=== PATIENT | female | born 1970 | race Caucasian/White ===

== ENCOUNTER 2017-09-05 15:02 | Emergency (ER) | payer OTHER, SELFPAY ==
[2017-09-05 15:02] VITALS: BP 130/81; PULSE 93; RESP 18; TEMP 36.8; O2SAT 98; BMI 30.9
--- NOTE | 2017-09-05 15:15 | RAD_ITS ---
STUDY: X-RAY - RIGHT ANKLE REASON FOR EXAM: Female, 47 years old. Pain following recent injury. TECHNIQUE: 3 view(s) of the ankle. COMPARISON: None. FINDINGS: Normal visualized distal tibia and fibula. Normal medial and lateral malleoli. Normal tibiotalar articulation and ankle mortise. Normal visualized talus and calcaneus. The visualized subtalar, talonavicular, calcaneocuboid and tarsal articulations are normal. The soft tissue structures are unremarkable. RAD/Ankle min 3 Views IMPRESSION: Normal x-ray examination of the ankle. Electronically Signed: Dany Huertas MD at 15:35 EST Tel [phone], Service support ,
--- NOTE | 2017-09-05 15:52 | RAD_ITS ---
STUDY: X-RAY - RIGHT TIBIA AND FIBULA REASON FOR EXAM: Female, 47 years old. Rolled ankle. TECHNIQUE: 3 view(s) of the tibia and fibula were obtained. COMPARISON: None. FINDINGS: Normal visualized tibia. Normal visualized fibula. The soft tissue structures are unremarkable. RAD/Tibia & Fibula 2 Views IMPRESSION: No acute osseous injury identified. Electronically Signed: Amanda Ibanez MD at 16:24 EST Tel , Service support ,
--- NOTE | 2017-09-05 15:52 | RAD_ITS ---
STUDY: X-RAY - RIGHT FOOT CLINICAL: Female, 47 years old. Rolled right ankle. TECHNIQUE: 3 view(s) of the foot. COMPARISON: None. FINDINGS: Normal talus, calcaneus, and tarsal bones. Normal visualized subtalar, talonavicular, calcaneocuboid, tarsal and tarsometatarsal articulations. Normal metatarsi. Normal metatarsophalangeal joint of the great toe. Normal interphalangeal joint of the great toe. Normal phalanges of the great toe. Normal second through fifth metatarsophalangeal joints. Normal interphalangeal joints and phalanges of the lesser toes. The soft tissue structures are unremarkable. RAD/Foot min 3 Views IMPRESSION: No acute osseous injury identified. Electronically Signed: Amanda Ibanez MD at 16:21 EST Tel , Service support ,
[2017-09-05] MEDS: HYDROcodone Bitartrate/Apap 5/325 Tablet PO (16:21)
--- NOTE | 2017-09-05 16:47 | ED.DCSUM_ITS ---
- ER Visit Summary Date of Service: 09/05/17 Chief Complaint: Right foot/ankle injury History of Present Illness: The patient is a 47 F who has pain in the right foot and ankle. She twisted it when she stood up from the recliner. She has pain on the lateral part of the ankle down into the foot. It radiates up her leg. No previous injuries or fractures. She did not take anything for this at home. Physical Examination: Vital signs reviewed. Right ankle and foot exam reveals tenderness over the fifth metatarsal as well as the ATFL area. She also is tender on the proximal fibula. There is mild swelling down the foot and ankle. Test Results: X-rays of the foot, ankle and tibia-fibula are all normal Emergency Department Course and Treatment: Patient was given Sloan for pain control Treatment Plan: X-rays are all negative. Patient will be given an Aircast and crutches. Naproxen for home. She will ice and elevate. We will follow-up with PCP Disposition: Discharge Impression: Right foot sprain This note was generated with [employer] dictation software. It may contain incorrect words, spelling, and punctuation that were not noted in review of the chart prior to signing ED Disposition - Plan for ED Patient: Chief Complaint: Lower Extremity Injury Referrals: Bladimir Malone MD [Primary Care Provider] -
--- NOTE | 2017-09-05 16:47 | ED.DEP ---
ED Disposition - Plan for ED Patient: Disposition: Home or Assisted Living Chief Complaint: Lower Extremity Injury Instructions: ED Sprain Ankle W X Ray Prescriptions: Naproxen [Naprosyn] 500 mg PO BID PRN #20 tab Referrals: Bladimir Malone MD [Primary Care Provider] -
[2017-09-05 17:05] VITALS: PULSE 82; RESP 17; O2SAT 97
== END 2017-09-05 17:09 | disposition home or self-care (01) ==
PROVIDERS: Emergency Provider Emergency Medicine; Family Provider Family Medicine; PCP Family Medicine
DX: S93.601A Unspecified sprain of right foot, initial encounter (principal); X58.XXXA Exposure to other specified factors, initial encounter; Y93.9 Activity, unspecified; Y92.9 Unspecified place or not applicable; I10 Essential (primary) hypertension; M54.9 Dorsalgia, unspecified; Z79.899 Other long term (current) drug therapy; Z72.0 Tobacco use
CPT/HCPCS: 73590; 73610; 73630; 99284

== ENCOUNTER 2018-04-11 13:01 | Emergency (ER) | payer OTHER, SELFPAY ==
[2018-04-11 13:02] VITALS: BP 144/94; PULSE 93; RESP 20; TEMP 36.7; O2SAT 98; BMI 27.3
[2018-04-11 14:14] LABS: Absolute Lymphocyte Count 1.93 X10^3/ul (0.83-4.51); Absolute Neutrophil Count 4.5 X10^3/uL (2.0-7.7); Basophil# 0.03 X10^3/uL; Basophil% 0.4 % (0-1); Eosinophil# 0.14 X10^3/uL; Eosinophils% 1.9 % (0-5); Lymphocyte # 1.93 X10^3/ul (4.0); Lymphocyte % 26.5 % (19-41); Mean Corp Hgb Conc 34.1 g/gl (32-36); Mean Corpuscular Hgb 32.1 pg (27.0-32.0); Mean Platelet Vol. 11.1 fl (6.2-12.0); Monocyte# 0.66 X10^3/uL; Monocyte% 9.1 % (0-10); Neutrophil # 4.52 X10^3/uL (2.7-7.7); Neutrophil % 62.1 % (47-70); POSITIVE COUNT NO; POSITIVE DIFFERENTIAL NO; POSITIVE MORPHOLOGY NO; Platelet Count 209 K/mm3 (150-450); RBC Distribution Width CV 12.6 % (11.6-14.6); RBC Distribution Width SD 43.2 fl (35.1-43.9); Red Blood Count 4.36 M/mm3 (4.2-5.4); White Blood Count 7.3 K/mm3 (4.4-11.0)
[2018-04-11 14:30] LABS: AST(SGOT) 12 U/L (15-37); Alanine Aminotransfer ALT/SGPT 20 U/L (13-56); Alkaline Phosphatase 96 U/L (45-117); Anion Gap 7 (5-15); BUN 14 mg/dL (7-18); BUN/Creat Ratio 17.2 RATIO (10-20); Bilirubin, Direct 0.14 mg/dL (0.00-0.30); Calcium,Total 9.3 mg/dL (8.5-10.1); Chloride 107 mmol/L (98-107); Creatinine, Serum 0.82 mg/dL (0.55-1.02); EST Glomerular Filtration Rate 80 mL/min (>60); Est Glom Filt Rate - Afr Amer 96 mL/min (>60); Estimated Creatinine Clearance 70.16 ml/min; Globulin 3.7 g/dL (2.2-4.2); Glucose 93 mg/dL (74-106); Lipase 120 U/L (73-393); Potassium 3.3 mmol/L (3.5-5.1); Protein, Total 7.7 g/dL (6.4-8.2); Sodium Level 140 mmol/L (136-145)
[2018-04-11] MEDS: 0.9% Normal Saline 1,000 ML 1000 ML IV (14:31)
[2018-04-11] MEDS: Ondansetron 4 MG/2 ML Vial IV ×2 (14:31→17:31)
[2018-04-11] MEDS: Morphine 4 MG/ML Syringe IV ×2 (14:31→17:30)
--- NOTE | 2018-04-11 14:45 | CT_ITS ---
STUDY: CT ABDOMEN AND PELVIS WITH CONTRAST REASON FOR EXAM: Female, 47 years old. UPPER ABD PAIN, N/V,D X 10 DAYS RADIATION DOSAGE (If Supplied By Facility): CTDIvol = ( 15.63 ) mGy, DLP = ( 886.09 ) mGycm TECHNIQUE: Transaxial images were obtained from the dome of the diaphragm to the symphysis pubis with oral contrast. 100 ml of Isovue 300 contrast was administered. Sagittal and coronal images were reconstructed. Individualized dose optimization techniques were used for this CT. COMPARISON: None. FINDINGS: The visualized lung bases are unremarkable. The visualized portions of the heart are within normal limits. Normal liver. Normal gallbladder and extrahepatic biliary system. Normal spleen. Small splenule is noted medial to the spleen. Normal pancreas. Normal bilateral adrenal glands. Normal right kidney. Normal left kidney. Normal visualized stomach. Normal small intestine. Normal colon. The appendix is visualized and appears normal. Mild atherosclerosis of the aorta noted. Normal inferior vena cava. Normal retroperitoneum. Normal urinary bladder. Normal abdominal wall. Degenerative disc height loss with marginal osteophytes, broad posterior disc bulge and vacuum disc phenomena noted at L5-S1. CT/Abdomen/Pelvis WITH Contrast IMPRESSION: Normal enhanced CT of the abdomen and pelvis. Electronically Signed: Stacy Mace MD at 17:15 EDT , Service support ,
--- NOTE | 2018-04-11 16:06 | ED.VISSUMM ---
- ER Visit Summary Date of Service: 04/11/18 Chief Complaint: Abdominal pain History of Present Illness: The patient is a 47 F with epigastric abdominal pain that occurs with eating for the past 10 days. She also describes significant diarrhea and nausea. Today she had vomiting of bile. She states her weight is down 6 pounds in the last 10 days. She denies fever or chills. She does complain of some body aches and headache. Physical Examination: Vital signs unremarkable. Patient is sitting upright in bed. She appears ill but she is not toxic appearing. Head and neck examination is unremarkable with moist mucous membranes. Heart is regular rate and rhythm. Sounds are clear. Abdomen is soft with focal tenderness in the epigastrium. There is no guarding or rebound. Hypoactive bowel sounds are noted. Test Results: CBC and chemistry studies significant for potassium 3.3. LFTs and lipase normal. CT abdomen pelvis is unremarkable. Emergency Department Course and Treatment: Patient was given morphine, Zofran, and IV fluids. Repeat evaluation patient is resting comfortably. She does state that she has had peptic ulcers in the past but had a lot of reflux with that. She has not had those symptoms currently. She may have gastritis versus duodenal ulcer causing her symptoms. I recommended follow-up with GI or surgery for further testing. In the meantime she will be started on Prilosec, Taylor, Zofran, and Reglan. She will be given potassium replacement for the next couple days. Treatment Plan: [] Disposition: Discharge Impression: 1. Epigastric pain 2. Hypokalemia This note was generated with [employer] dictation software. It may contain incorrect words, spelling, and punctuation that were not noted in review of the chart prior to signing ED Disposition - Plan for ED Patient: Chief Complaint: Abd Pain Referrals: Care Physician,No Primary [Primary Care Provider] -
--- NOTE | 2018-04-11 17:26 | ED.DEP ---
ED Disposition - Plan for ED Patient: Disposition: Home or Assisted Living Chief Complaint: Abd Pain Instructions: ED Epigastric Pain UKO, ED Potassium Deficiency Prescriptions: Hydrocodone Bitart/Apap 5-325 [[place] 5MG-325MG] 1 tablet PO Q6H PRN PRN 3 Days #10 tablet PRN Reason: Pain Ondansetron [Zofran Odt] 4 mg PO Q8H PRN PRN #10 tablet PRN Reason: Nausea Omeprazole [Prilosec] 20 mg PO DAILY #30 capsule Potassium Chloride [K-Dur] 20 meq PO BID #8 tablet Metoclopramide [Reglan] 10 mg PO 4X/DAY PRN #20 tablet PRN Reason: Nausea Referrals: Jeronimo Turpin MD [STAFF PHYSICIAN] - Kamaljit Bolivar MD [NON-STAFF] -
[2018-04-11] MEDS: 0.9% Normal Saline 1,000 ML 150 ML IV (17:28)
--- NOTE | 2018-04-11 17:29 | DCINST.ED_ITS ---
ED Disposition - Plan for ED Patient: Disposition: Home or Assisted Living Chief Complaint: Abd Pain Instructions: ED Epigastric Pain UKO, ED Potassium Deficiency Prescriptions: Hydrocodone Bitart/Apap 5-325 [[place] 5MG-325MG] 1 tablet PO Q6H PRN PRN 3 Days # 10 tablet PRN Reason: Pain Ondansetron [Zofran Odt] 4 mg PO Q8H PRN PRN #10 tablet PRN Reason: Nausea Omeprazole [Prilosec] 20 mg PO DAILY #30 capsule Potassium Chloride [K-Dur] 20 meq PO BID #8 tablet Metoclopramide [Reglan] 10 mg PO 4X/DAY PRN #20 tablet PRN Reason: Nausea Referrals: Jeronimo Turpin MD [STAFF PHYSICIAN] - Kamaljit Bolivar MD [NON-STAFF] -
== END 2018-04-11 17:55 | disposition home or self-care (01) ==
PROVIDERS: Emergency Provider Emergency Medicine
DX: R10.13 Epigastric pain (principal); E87.6 Hypokalemia; I10 Essential (primary) hypertension; Z87.11 Personal history of peptic ulcer disease; Z79.899 Other long term (current) drug therapy; Z72.0 Tobacco use
CPT/HCPCS: 74177; 80048; 80076; 83690; 85025; 96361; 96374; 96375; 96376; 99283; J7030; Q9967; A4216; J2405

== ENCOUNTER 2018-04-17 11:05 | Emergency (ER) | payer OTHER, SELFPAY ==
[2018-04-17 11:05] VITALS: BP 136/88; PULSE 95; RESP 16; TEMP 36.3; O2SAT 98; BMI 27.6
--- NOTE | 2018-04-17 11:11 | US_ITS ---
STUDY: ABDOMINAL ULTRASOUND - RIGHT UPPER QUADRANT REASON FOR VISIT: Female, 47 years old. Epigastric pain TECHNIQUE: Ultrasound evaluation of the right upper quadrant was performed with real-time and static heard-scale imaging. TECHNICAL QUALITY: Adequate. COMPARISON: None. FINDINGS: Liver: The liver measures 15.1 cm. There is normal echogenicity of the liver. The bile ducts are within normal limits. There is hepatic color flow. The direction of portal flow is hepatopetal. There is no demonstrated mass lesion. Gallbladder: Normal distended gallbladder. The gallbladder wall measures 2 mm. There is a negative sonographic Macdonald's sign. There is no pericholecystic fluid. There are no gallstones. Common Bile Duct (C.B.D.): The common bile duct measures 2 mm. Pancreas: Normal size of the head, body and tail of the pancreas. There is normal echogenicity of the pancreas. There is no demonstrated pancreatic mass or cyst. Right Kidney: Normal size of the right kidney. The right kidney measures 10 cm. Normal renal cortex. The right cortex measures 1.4 cm. There is no demonstrated renal mass or cyst. There is no right hydronephrosis. US/Gallbladder IMPRESSION: Normal right upper quadrant ultrasound examination. Electronically Signed: You Galindo DO at 12:01 EDT Tel , Service support ,
[2018-04-17 11:37] LABS: Bacteria 0 SEEN /hpf (None Seen); Mucous, Urine 0 SEEN /hpf (<or=2+); Red Blood Cells-Urine 0 SEEN /hpf (0-5); White Blood Cells 0 SEEN /hpf (0-5)
[2018-04-17 11:38] LABS: Color, Urine Yellow (Yellow); Glucose, Dipstick Normal (Normal); Ketone-Dipstick Negative (Negative); Leukocyte Esterase-Dipstick Negative /ul (Negative); Nitrite-Dipstick Negative (Negative); Occult Blood-Urine Negative /ul (Negative); Protein-Dipstick Negative (Negative); Specific Gravity, Urine 1.015 (1.002-1.030); Urine Bilirubin Dipstick Negative (Negative); Urine Clarity Sl. Cloudy (Clear); Urine Urobilinogen Normal (Normal)
[2018-04-17 11:50] LABS: Squamous Epithelial Cells - UA 0-5 SEEN /hpf (5-10)
[2018-04-17 12:16] LABS: Absolute Lymphocyte Count 2.84 X10^3/ul (0.83-4.51); Absolute Neutrophil Count 4.3 X10^3/uL (2.0-7.7); Basophil# 0.03 X10^3/uL; Basophil% 0.4 % (0-1); Eosinophil# 0.27 X10^3/uL; Eosinophils% 3.4 % (0-5); Hematocrit 43.9 % (37-47); Hemoglobin 15.1 g/dl (12.0-15.0); Lymphocyte # 2.84 X10^3/ul (4.0); Lymphocyte % 35.5 % (19-41); Mean Corp Hgb Conc 34.4 g/gl (32-36); Mean Corpuscular Hgb 32.5 pg (27.0-32.0); Mean Corpuscular Volume 94.6 fL (81-99); Mean Platelet Vol. 10.2 fl (6.2-12.0); Monocyte# 0.55 X10^3/uL; Monocyte% 6.9 % (0-10); Neutrophil # 4.29 X10^3/uL (2.7-7.7); Neutrophil % 53.7 % (47-70); Platelet Count 312 K/mm3 (150-450); RBC Distribution Width CV 13.2 % (11.6-14.6); RBC Distribution Width SD 45.4 fl (35.1-43.9); Red Blood Count 4.64 M/mm3 (4.2-5.4)
[2018-04-17 12:17] LABS: POSITIVE COUNT NO; POSITIVE DIFFERENTIAL NO; POSITIVE MORPHOLOGY NO
[2018-04-17 12:18] VITALS: BP 144/85; PULSE 88; O2SAT 100
[2018-04-17 12:32] LABS: Pregnancy, Serum, hCG Quali. NEGATIVE Negative (0-9 Nonpreg)
[2018-04-17 12:33] LABS: AST(SGOT) 13 U/L (15-37); Alanine Aminotransfer ALT/SGPT 25 U/L (13-56); Albumin, Serum 3.7 g/dL (3.2-5.0); Alkaline Phosphatase 115 U/L (45-117); Anion Gap 6 (5-15); BUN 5 mg/dL (7-18); BUN/Creat Ratio 6.7 RATIO (10-20); Bilirubin, Direct 0.06 mg/dL (0.00-0.30); Calcium,Total 9.2 mg/dL (8.5-10.1); Chloride 108 mmol/L (98-107); Creatinine, Serum 0.74 mg/dL (0.55-1.02); EST Glomerular Filtration Rate 89 mL/min (>60); Est Glom Filt Rate - Afr Amer 107 mL/min (>60); Estimated Creatinine Clearance 77.74 ml/min; Globulin 4.1 g/dL (2.2-4.2); Glucose 85 mg/dL (74-106); Lipase 147 U/L (73-393); Potassium 4.6 mmol/L (3.5-5.1); Protein, Total 7.8 g/dL (6.4-8.2); Sodium Level 143 mmol/L (136-145)
[2018-04-17] MEDS: Dicyclomine 20 MG/2 ML Vial IM (12:54)
[2018-04-17] MEDS: 0.9% Normal Saline 1,000 ML 999 ML IV (12:54)
--- NOTE | 2018-04-17 13:57 | ED.DCSUM_ITS ---
- ER Visit Summary Date of Service: 04/17/18 Chief Complaint: Abdominal pain History of Present Illness: The patient is a 47 F who was sent to the emergency room by Dr. Turpin. He was seen here in follow-up from an ER visit last week. The patient states that since weekend she has been having 20 diarrheal episodes are more a day as well as nausea vomiting. Last week in the emergency room she had blood work and a CT of the abdomen pelvis are essentially negative. She was sent to the ER for gallbladder evaluation. She initially denies any camping but then states that she was staying in a camper on some property with well water but the well water was deemed safe. Denies any rashes. No blood in the diarrhea. No fevers. Pain is constant but comes in waves. Physical Examination: Afebrile vital signs are stable Gen: Well-nourished well-developed Head: Normocephalic atraumatic Eyes: Perrl EOMI ENT: TMs clear no rhinorrhea moist mucous membranes Neck: Supple no lymphadenopathy no JVD nontender CVS: Regular rate rhythm no murmurs normal S1-S2 Respiratory: No distress clear to auscultation bilaterally chest nontender Abdomen: Soft diffusely tender to palpation more severe in the epigastrium nondistended normal bowel sounds no masses Back: Nontender Extremity: Nontender no edema Skin: Normal color no rash Neuro: alert orientated ?3 CN II-XII intact normal strength sensation reflexes gait cerebellar Psych: Normal affect normal mood Test Results: CBC CMP and lipase were normal. Gallbladder ultrasound showed negative Macdonald's no sludge or stone and a 2 mm gallbladder wall without pericholecystic fluid. Emergency Department Course and Treatment: Patient received Bentyl and fluids. She patient was asked to provide stool specimen. When she went she had formed stool. She states this is the first that she has had. Her surgeon to come to the emergency room speak with the patient. This point I am going to write Bentyl and have her follow-up with gastroenterology return if worsening Impression: 1. Abdominal pain This note was generated with [employer] dictation software. It may contain incorrect words, spelling, and punctuation that were not noted in review of the chart prior to signing ED Disposition - Plan for ED Patient: Disposition: Home or Assisted Living Chief Complaint: Abd Pain Instructions: ED Abdominal Pain Unkn Cause Prescriptions: Dicyclomine HCl [Bentyl] 10 mg PO 4X/DAY PRN #12 cap PRN Reason: abdominal pain Referrals: Kamaljit Bolivar MD [NON-STAFF] - (call to arrange gastroenterology appointment)
[2018-04-17 14:11] VITALS: BP 125/82; PULSE 75; RESP 14; O2SAT 100
== END 2018-04-17 14:22 | disposition home or self-care (01) ==
PROVIDERS: Emergency Provider Emergency Medicine
DX: R10.9 Unspecified abdominal pain (principal); R19.7 Diarrhea, unspecified; R11.2 Nausea with vomiting, unspecified; I10 Essential (primary) hypertension; Z79.899 Other long term (current) drug therapy; Z72.0 Tobacco use
CPT/HCPCS: 76705; 80048; 80076; 81001; 83630; 83690; 84703; 85025; 87177; 87209; 87506; 96360; 96372; 99284; J7030; A4216

== ENCOUNTER 2018-04-23 05:58 | Inpatient (IN) | payer OTHER, SELFPAY ==
[2018-04-23 05:59] VITALS: BP 136/100; PULSE 144; RESP 20; TEMP 36.7; BMI 27.6
--- NOTE | 2018-04-23 06:17 | ED.DCSUM_ITS ---
- ER Visit Summary Date of Service: 04/23/18 Chief Complaint: [] Abdominal pain History of Present Illness: The patient is a 47 F been experiencing abdominal pain for last 3-6 weeks. It was worse this morning. It waxes and wanes. Is moderate. She has had nausea with intermittent vomiting and intermittent diarrhea loose for the last 6 weeks. She has had 2 ER visits with negative workups including lab work CT abdomen pelvis and gallbladder ultrasound. She has had 3 attacks since the . She is having an appointment to see GI Dr. Bolivar the end of the month. She did see surgery Dr. Turpin after her first ER visit on the . Nothing was found at that time. Physical Examination: [] Vital signs reviewed General: Well-nourished well-developed Head: Normocephalic atraumatic Eyes: Pupils equal round and reactive to light extraocular movements intact ENT: TMs clear no hemotympanum no trauma Neck: Nontender full range of motion Cardiovascular: Regular rate rhythm no murmurs normal S1-S2 Respiratory: No distress clear to auscultation bilaterally chest nontender Abdomen: Soft diffuse tenderness normal bowel sounds no masses Back: Nontender no CVA tenderness Extremities: Nontender active range of motion ?4 extremities no trauma Skin: Normal color no trauma Neuro alert oriented cranial nerves II through XII intact normal strength sensation reflexes Test Results: [] Emergency Department Course and Treatment: [] Patient given IV fluids, morphine, Zofran. Lab work obtained. Lab work shows an acute pancreatitis with a lipase of 1139. CBC normal except a white count of 12.1. Chemistries normal except potassium 3.4. Glucose 130. Patient felt better after treatment. She will be admitted. Given copious IV fluids. She states she is not an alcohol drinker. Recent negative ultrasound of her gallbladder. It is unclear to me the cause of her pancreatitis. She also has a chronic diarrhea. She could have celiac disease with some of her symptoms being so chronic. She has an appointment with GI at the end of the month but she will need to be admitted to calm her pancreas down. Treatment Plan: [] Disposition: [] Impression: [] Pancreatitis Chronic diarrhea This note was generated with [employer] dictation software. It may contain incorrect words, spelling, and punctuation that were not noted in review of the chart p rior to signing ED Disposition - Plan for ED Patient: Chief Complaint: Abd Pain Referrals: Care Physician,No Primary [Primary Care Provider] -
[2018-04-23] MEDS: Ondansetron 4 MG/2 ML Vial IV ×2 (06:26→08:57)
[2018-04-23] MEDS: morphine 8 MG/ML Syringe IV (06:26)
[2018-04-23] MEDS: 0.9% Normal Saline 1,000 ML 1000 ML IV ×2 (06:26→06:53)
[2018-04-23 06:39] LABS: Absolute Lymphocyte Count 2.41 X10^3/ul (0.83-4.51); Absolute Neutrophil Count 8.7 X10^3/uL (2.0-7.7); Basophil# 0.03 X10^3/uL; Basophil% 0.2 % (0-1); Eosinophil# 0.21 X10^3/uL; Eosinophils% 1.7 % (0-5); Hematocrit 44.1 % (37-47); Hemoglobin 15.7 g/dl (12.0-15.0); Lymphocyte # 2.41 X10^3/ul (4.0); Lymphocyte % 19.9 % (19-41); Mean Corp Hgb Conc 35.6 g/gl (32-36); Mean Corpuscular Hgb 32.9 pg (27.0-32.0); Mean Corpuscular Volume 92.5 fL (81-99); Monocyte# 0.75 X10^3/uL; Monocyte% 6.2 % (0-10); Neutrophil # 8.69 X10^3/uL (2.7-7.7); Neutrophil % 71.8 % (47-70); Platelet Count 332 K/mm3 (150-450); RBC Distribution Width CV 13.1 % (11.6-14.6); Red Blood Count 4.77 M/mm3 (4.2-5.4); White Blood Count 12.1 K/mm3 (4.4-11.0)
[2018-04-23 06:41] LABS: POSITIVE COUNT NO; POSITIVE DIFFERENTIAL NO; POSITIVE MORPHOLOGY NO
[2018-04-23 06:45] LABS: BUN 7 mg/dL (7-18); Creatinine, Serum 0.81 mg/dL (0.55-1.02); Glucose 130 mg/dL (74-106)
[2018-04-23 06:46] LABS: AST(SGOT) 16 U/L (15-37); Alanine Aminotransfer ALT/SGPT 30 U/L (13-56); Albumin, Serum 3.6 g/dL (3.2-5.0); Alkaline Phosphatase 129 U/L (45-117); Anion Gap 10 (5-15); BUN/Creat Ratio 8.6 RATIO (10-20); Bilirubin, Direct 0.14 mg/dL (0.00-0.30); Calcium,Total 9.5 mg/dL (8.5-10.1); Chloride 105 mmol/L (98-107); EST Glomerular Filtration Rate 80 mL/min (>60); Est Glom Filt Rate - Afr Amer 97 mL/min (>60); Estimated Creatinine Clearance 71.03 ml/min; Globulin 4.1 g/dL (2.2-4.2); Lipase 1139 U/L (73-393); Potassium 3.4 mmol/L (3.5-5.1); Protein, Total 7.7 g/dL (6.4-8.2); Sodium Level 138 mmol/L (136-145)
--- NOTE | 2018-04-23 07:21 | PCM.HP.STD ---
Problem List (1) Peptic ulcer disease Status: Chronic (2) GERD (gastroesophageal reflux disease) Status: Chronic (3) Cervical disc disorder Status: Chronic (4) Abdominal pain Status: Chronic (5) Chronic diarrhea Status: Acute (6) Hypertension Status: Chronic History of Present Illness Date of Admission: 04/23/18 Chief Complaint: Abdominal pain, nausea, vomiting and diarrhea for about 6 weeks The patient is a 47 year old F with history of chronic cervical disc degeneration/herniation status post cervical spine surgery, possible PUD/GERD on PPI recently came to ER with abdominal pain, nausea and vomiting and diarrhea on and off for last 6 weeks. This is her third ER visit since 04/11/2015. Earlier patient was seen by Dr. Turpin in office and had [] Earlier CT abdomen and ultrasound the liver which reported as normal. Patient describes abdominal pain and cramps with waxing and waning in nature, sometimes very severe colicky nature but is still some pain remains after episode is over. Patient has nausea, vomiting and dry heaving, cleansed with a 15-20 times per day intermittently for last 6 weeks along with diarrhea which is loose, watery without blood. Denies GI bleed. Patient has appointment with Dr. Bolivar 05/22. In ED significant abnormal lab was lipase 1139. On previous occasions it was normal. Mild hypokalemia, K3.4. Mild leukocytosis 12,000. Past Medical History Past Medical History (Chronic Problems): Chronic Problems (Last Reviewed 04/17/18 @ 10:11 by Doris Ram) Peptic ulcer disease (Chronic) GERD (gastroesophageal reflux disease) (Chronic) Cervical disc disorder (Chronic) Abdominal pain (Chronic) Hypertension (Chronic) Medical History: Medical History (Last Reviewed 04/17/18 @ 10:11 by Doris Ram) Arthritis M19.90 Back pain M54.9 Neck pain M54.2 Raynauds disease I73.00 Shoulder pain M25.519 Hypertension I10 Allergies cyclobenzaprine HCl [From Flexeril] Adverse Reaction (Verified 04/23/18 06:04) UNABLE TO FUNCTION ON MED hydromorphone HCl [From Dilaudid] Adverse Reaction (Verified 04/23/18 06:04) Nausea Penicillins Adverse Reaction (Verified 04/23/18 06:04) YEAST INFECTION Home Medications: Ambulatory Orders Medication Instructions Recorded Hydrocodone Bitart/Apap 5-325 1 tab PO Q6H PRN PRN 3 Days #10 tab 04/11/18 [[place] 5MG-325MG] Metoclopramide [Reglan] 10 mg PO 4X/DAY PRN #20 tab 04/11/18 Omeprazole [Prilosec] 20 mg PO DAILY #30 cap 04/11/18 Ondansetron [Zofran Odt] 4 mg PO Q8H PRN PRN #10 tab 04/11/18 Potassium Chloride [K-Dur] 20 meq PO BID #8 tab 04/11/18 Dicyclomine HCl [Bentyl] 10 mg PO 4X/DAY PRN #12 cap 04/17/18 lisinopril 20 mg tablet 20 mg PO BID tab 04/17/18 Surgical History: Surgical History (Last Reviewed 04/17/18 @ 10:11 by Doris Ram) Hx of cervical spine surgery Z98.890 Smoking Status: Current every day smoker - *Family History Maternal Family History: Family History (Last Reviewed 04/17/18 @ 10:11 by Doris Ram) Other Cancer Diabetes Heart disease History Items: No pertinent history - Denies family history of irritable bowel syndrome Review of Systems Constitutional: Reports: Malaise, Weakness, Fatigue. Denies: Chills, Fever, Weight Change HEENT: Denies: Head Aches, Sinus Congestion, Sinus Drainage Cardiovascular: Denies: Chest Pain, Palpitations Respiratory: Denies: Cough, Shortness of breath at rest, Sputum production Gastrointestinal: Reports: Abdominal Pain, Diarrhea, Nausea, Vomiting. Denies: Hematemesis, Hematochezia, Melena Genitourinary: Denies: Dysuria Musculoskeletal: Reports: Neck Pain. Denies: Joint Pain, Joint Tenderness Skin: Denies: Rash, Wounds Neurological: Denies: Numbness, Tingling, Focal weakness Psychiatric: Reports: Anxiety. Denies: Depression, Homicidal Ideations, Suicidal Ideations Hematologic/ Lymphatic: Denies: Easy Bruising, Easy Bleeding VTE Information - Inpt Only VTE Present on Admission: No VTE Mechan Device Prophylaxis: None VTE Pharm Prophylaxis ordered?: Yes Patient Problems: Active and Suspected Problems (Last Reviewed 04/17/18 @ 10:11 by Doris Ram) Chronic diarrhea (Acute) - Physical Exam General: Alert, Oriented x3, Cooperative HEENT: Atraumatic, PERRLA, EOMI, Normocephalic Neck: Supple, No JVD, Negative Carotid Bruits Lungs: Clear to auscultation, Normal air movement Cardiovascular: Regular rate, Regular Rhythm, Normal S1, Normal S2, No murmurs Abdomen: Bowel Sounds Present, Soft, Non Tender, Non-Distended Extremities: No edema, Capillary Refill Less than 3 Seconds Skin: No rashes, No breakdown Musculoskeletal: No Tenderness to Palpation of Joints or Extremities, Arthritic Changes Neurological: Cranial nerves II-XII grossly intact Psych/Mental Status: Normal Affect, Appropriate Vital Signs Temp Pulse Resp BP 98.1 F 144 H 20 H 136/100 H 04/23/18 05:59 04/23/18 05:59 04/23/18 05:59 04/23/18 05:59 Weight: 156 lb Body Mass Index (BMI) 27.6 Laboratory Tests Past 24 Hrs 04/23/18 04/23/18 06:20 06:20 WBC 12.1 H RBC 4.77 Hgb 15.7 H Hct 44.1 MCV 92.5 MCH 32.9 H MCHC 35.6 RDW 13.1 RDW Differential 43.0 Plt Count 332 MPV 10.0 Immature Gran % (Auto) 0.200 Neut % (Auto) 71.8 H Lymph % (Auto) 19.9 [place] % (Auto) 6.2 Eos % (Auto) 1.7 Baso % (Auto) 0.2 Absolute Neuts (auto) 8.7 H Absolute Lymphs (auto) 2.41 Total Counted Not Reportable Sodium 138 Potassium 3.4 L Chloride 105 Carbon Dioxide 23.0 Anion Gap 10 BUN 7 Creatinine 0.81 Estim Creat Clear Calc 71.03 Est GFR (MDRD) Af Amer 97 Est GFR (MDRD) Non-Af 80 BUN/Creatinine Ratio 8.6 L Glucose 130 H Calcium 9.5 Total Bilirubin 0.50 Direct Bilirubin 0.14 AST 16 ALT 30 Alkaline Phosphatase 129 H Total Protein 7.7 Albumin 3.6 Globulin 4.1 Lipase 1139 H Assessment/Plan All Active Problems (Last Reviewed 04/17/18 @ 10:11 by Doris Ram) Chronic diarrhea (Acute) Infected dental caries (Acute) The patient is a 47 year old F with history of chronic cervical disc degeneration/herniation status post cervical spine surgery, possible PUD/GERD on PPI recently came to ER with abdominal pain, nausea and vomiting and diarrhea on and off for last 6 weeks. This is her third ER visit since 04/11/2015. Earlier patient was seen by Dr. Turpin in office and had [] Earlier CT abdomen and ultrasound the liver which reported as normal. Patient describes abdominal pain and cramps with waxing and waning in nature, sometimes very severe colicky nature but is still some pain remains after episode is over. Patient has nausea, vomiting and dry heaving, cleansed with a 15-20 times per day intermittently for last 6 weeks along with diarrhea which is loose, watery without blood. Denies GI bleed. Patient has appointment with Dr. Bolivar 05/22. In ED significant abnormal lab was lipase 1139. On previous occasions it was normal. Mild hypokalemia, K3.4. Mild leukocytosis 12,000. 1. Possible acute pancreatitis; exact etiology unclear: Patient has lipase 1139 which is 3 times upper limit normal but lipase elevation >3 ULN has been found from bowel sources, hepatobiliary pathology and gastric sources although evidence do not suggest that. Pancreas was reported normal. CBD measures 2 mm. Normal external gallbladder with GB wall 2 mm in recent right upper quadrant sonogram and 04/17. But at that time, lipase was normal at 147. Patient has accepted drinking alcohol on weekends but denies heavy drinking. Keep the patient n.p.o. patient had 2 L of normal saline bolus in ED. Continue IV fluid normal saline at 150 mL/h. General surgery Dr. Turpin consult for further opinion. 2. Acute abdominal pain, with nausea, vomiting and diarrhea; etiology unclear possible irritable bowel syndrome: Enteric bacteriology panel and stool lactoferrin are negative. I think given patient pain is subsided will need upper and lower GI endoscopy. Stool for C. difficile ordered. 3. Other chronic comorbidities include cervical disc degeneration/discitis status post surgery, GERD/possible PUD, hypertension, home medication reconciliation done. Code Visit Inpatient E&M: 88129 Init Hosp L3
[2018-04-23 07:32] VITALS: BP 158/98; PULSE 100; RESP 18; O2SAT 95
--- NOTE | 2018-04-23 07:34 | NURSING ---
Dr. Hernández notified of elevated BP
[2018-04-23 08:07] VITALS: BMI 26.6; BMI 26.7
[2018-04-23 08:09] VITALS: BP 123/79; PULSE 103; RESP 20; TEMP 36.6; O2SAT 99
--- NOTE | 2018-04-23 08:42 | US_ITS ---
STUDY: ABDOMINAL ULTRASOUND - RIGHT UPPER QUADRANT REASON FOR VISIT: Female, 47 years old. Right upper quadrant pain and elevated lipase levels. TECHNIQUE: Ultrasound evaluation of the right upper quadrant was performed with real-time and static heard-scale imaging. TECHNICAL QUALITY: Adequate. COMPARISON: Comparison is made with prior ultrasound of the abdomen dated April 17, 2018. FINDINGS: Liver: The liver measures 15.0 cm. There is normal echogenicity of the liver. The bile ducts are within normal limits. There is hepatic color flow. The direction of portal flow is hepatopetal. There is no demonstrated mass lesion. Gallbladder: Normal distended gallbladder. The gallbladder wall measures 1.8 mm. There is a negative sonographic Macdonald's sign. There is no pericholecystic fluid. There are no gallstones. Common Bile Duct (C.B.D.): The common bile duct measures 3.7 mm. Pancreas: Normal size of the head, body and tail of the pancreas. There is normal echogenicity of the pancreas. There is no demonstrated pancreatic mass or cyst. Right Kidney: Normal size of the right kidney. The right kidney measures 10.1 cm x 4.6 cm x 4.3 cm. Normal renal cortex. The right cortex measures 1.4 cm. There is no demonstrated renal mass or cyst. There is no right hydronephrosis. US/Abdomen Limited IMPRESSION: Normal right upper quadrant ultrasound examination. Electronically Signed: Dany Huertas MD at 13:13 EDT Tel [phone], Service support ,
[2018-04-23] MEDS: Morphine 2 MG/ML Syringe IV ×2 (08:44→12:33)
[2018-04-23] MEDS: 0.9% NaCl Peripheral Flush Adult/Peds IV ×3 (08:57→16:28)
--- NOTE | 2018-04-23 10:05 | CASEMGMT ---
RN ANALISA Face to Face with patient for initial transition planning/care coordination assessment. RN CM introduced self and role at [facility]. Patient lying in bed, alert and oriented, parents at bedside. Patient willing to participate in assessment and is able to answer all questions appropriately. Care providers, pharmacy, and demographics verified. See link attached. Patient wishes to discharge home, denies need for home health at this time. Pt states he has no further needs or concerns at this time. CM to follow for discharge planning needs that may arise. Disposition Plan: Patient to discharge home with family support and follow-up plans in place. Cassia HOROWITZ, RN, CM
[2018-04-23] MEDS: Enoxaparin 40 MG/0.4 ML Syringe SC (11:34)
[2018-04-23] MEDS: Lisinopril 20 MG Tablet PO ×2 (11:34→21:37)
[2018-04-23] MEDS: 0.9% Normal Saline 1,000 ML 150 ML IV (15:00)
[2018-04-23 16:14] VITALS: BP 123/80; PULSE 93; RESP 18; TEMP 37.6; O2SAT 98
[2018-04-23] MEDS: Morphine 4 MG/ML Syringe IV ×2 (16:28→20:10)
--- NOTE | 2018-04-23 18:40 | NURSING ---
PT REQUESTING SOMETHING TO EAT. DR ANG TEXT REGARDING SAME - ORDERED PT TO REMAIN ONLY ON ICE CHIPS @ THIS TIME.
[2018-04-23] MEDS: Dicyclomine 10 MG Capsule PO (20:09)
[2018-04-23 21:00] VITALS: BP 116/78; PULSE 72; RESP 16; TEMP 37.3; O2SAT 98
[2018-04-24] MEDS: 0.9% Normal Saline 1,000 ML 150 ML IV ×3 (00:34→17:54)
[2018-04-24] MEDS: Morphine 4 MG/ML Syringe IV ×5 (00:41→21:56)
[2018-04-24 03:00] VITALS: BP 133/89; PULSE 66; RESP 16; TEMP 36.6; O2SAT 98
[2018-04-24] MEDS: Dicyclomine 10 MG Capsule PO ×2 (05:30→16:42)
[2018-04-24 06:18] LABS: Absolute Lymphocyte Count 2.16 X10^3/ul (0.83-4.51); Absolute Neutrophil Count 2.8 X10^3/uL (2.0-7.7); Basophil# 0.02 X10^3/uL; Basophil% 0.3 % (0-1); Eosinophil# 0.14 X10^3/uL; Eosinophils% 2.4 % (0-5); Hematocrit 35.8 % (37-47); Hemoglobin 12.2 g/dl (12.0-15.0); Lymphocyte # 2.16 X10^3/ul (4.0); Lymphocyte % 37.3 % (19-41); Mean Corp Hgb Conc 34.1 g/gl (32-36); Mean Corpuscular Hgb 32.9 pg (27.0-32.0); Mean Corpuscular Volume 96.5 fL (81-99); Mean Platelet Vol. 10.4 fl (6.2-12.0); Monocyte# 0.63 X10^3/uL; Monocyte% 10.9 % (0-10); Neutrophil # 2.83 X10^3/uL (2.7-7.7); Neutrophil % 48.9 % (47-70); Platelet Count 216 K/mm3 (150-450); RBC Distribution Width CV 13.2 % (11.6-14.6); RBC Distribution Width SD 43.9 fl (35.1-43.9); Red Blood Count 3.71 M/mm3 (4.2-5.4); White Blood Count 5.8 K/mm3 (4.4-11.0)
[2018-04-24 06:21] LABS: POSITIVE COUNT NO; POSITIVE DIFFERENTIAL NO; POSITIVE MORPHOLOGY NO
[2018-04-24 06:36] LABS: Anion Gap 7 (5-15); BUN 6 mg/dL (7-18); BUN/Creat Ratio 10.3 RATIO (10-20); Calcium,Total 8.3 mg/dL (8.5-10.1); Chloride 111 mmol/L (98-107); Creatinine, Serum 0.58 mg/dL (0.55-1.02); EST Glomerular Filtration Rate 117 mL/min (>60); Est Glom Filt Rate - Afr Amer 142 mL/min (>60); Estimated Creatinine Clearance 99.19 ml/min; Glucose 77 mg/dL (74-106); Lipase 985 U/L (73-393); Potassium 3.5 mmol/L (3.5-5.1); Sodium Level 143 mmol/L (136-145)
[2018-04-24 08:58] VITALS: BP 144/83; PULSE 71; RESP 18; TEMP 36.7; O2SAT 100
[2018-04-24] MEDS: Lisinopril 20 MG Tablet PO ×2 (09:05→21:56)
[2018-04-24] MEDS: Enoxaparin 40 MG/0.4 ML Syringe SC (09:05)
[2018-04-24] MEDS: Ondansetron 4 MG/2 ML Vial IV (09:13)
--- NOTE | 2018-04-24 11:19 | PCA ---
doctor in with pt
--- NOTE | 2018-04-24 11:27 | PCM.PN.HOSP ---
Patient Problems: Active and Suspected Problems (Last Reviewed 04/17/18 @ 10:11 by Doris Ram) Chronic diarrhea (Acute) Subjective: Patient continues to have abdominal pain and required morphine. She is eager to eat Jell-O. She had 3 bowel movements yesterday and 2 bowel movements today. No GI bleed. She complained of abdominal pain today mainly epigastric in nature. No fever/chill. No tachycardia. No hypoxia. Vitals/I&O's: Vital Signs Temp Pulse Resp BP Pulse Ox 98.1 F 71 18 144/83 H 100 04/24/18 08:58 04/24/18 08:58 04/24/18 08:58 04/24/18 08:58 04/24/18 08:58 Oxygen Delivery Method Room Air Weight: 150 lb 9.211 oz Body Mass Index (BMI) 26.6 Intake and Output for Last 24 Hours 04/22/18 04/23/18 04/24/18 23:59 23:59 23:59 Intake Total 1018 / 1018 1506 / 1506 Output Total 441 / 441 Balance 577 / 577 1506 / 1506 General: Alert, Oriented x3, Cooperative HEENT: Atraumatic, PERRLA, EOMI, Normocephalic Neck: Supple, No JVD, Negative Carotid Bruits Lungs: Clear to auscultation, Normal air movement Cardiovascular: Regular rate, Regular Rhythm, Normal S1, Normal S2, No murmurs Abdomen: Bowel Sounds Present, Soft, Hyperactive Bowel Sounds, Tender - Epigastric region Extremities: No edema, Capillary Refill Less than 3 Seconds Skin: No rashes, No breakdown Musculoskeletal: No Tenderness to Palpation of Joints or Extremities Neurological: Cranial nerves II-XII grossly intact Psych/Mental Status: Normal Affect, Appropriate Microbiology Past 72 Hours 04/23/18 12:35 Stool C. difficile DNA Amplification - Final Laboratory Results 04/24/18 05:30: WBC 5.8, RBC 3.71 L, Hgb 12.2, Hct 35.8 L, MCV 96.5, MCH 32.9 H, MCHC 34.1, RDW 13.2, RDW Differential 43.9, Plt Count 216, MPV 10.4, Immature Gran % (Auto) 0.200, Neut % (Auto) 48.9, Lymph % (Auto) 37.3, [place] % (Auto) 10.9 H, Eos % (Auto) 2.4, Baso % (Auto) 0.3, Absolute Neuts (auto) 2.8, Absolute Lymphs (auto) 2.16, Total Counted Not Reportable 04/24/18 05:30: Sodium 143, Potassium 3.5, Chloride 111 H, Carbon Dioxide 25.0, Anion Gap 7, BUN 6 L, Creatinine 0.58, Estim Creat Clear Calc 99.19, Est GFR (MDRD) Af Amer 142, Est GFR (MDRD) Non-Af 117, BUN/Creatinine Ratio 10.3, Glucose 77, Calcium 8.3 L, Lipase 985 H Current Medications Acetaminophen (Tylenol) 650 mg PO Q6H PRN PRN PRN Reason: Mild Pain (scale 0-3)/T>100.7 Dicyclomine HCl (Bentyl) 10 mg PO 4X/DAY PRN PRN Reason: abdominal pain Last Admin: 04/24/18 05:30 Dose: 10 mg Enoxaparin Sodium (Lovenox) 40 mg SC DAILY@1000 TIMUR Last Admin: 04/24/18 09:05 Dose: 40 mg Sodium Chloride () 1,000 mls @ 150 mls/hr IV .Q6H40M [facility] Last Admin: 04/24/18 05:30 Dose: 150 mls/hr Lisinopril (Zestril) 20 mg PO BID [facility] Last Admin: 04/24/18 09:05 Dose: 20 mg Morphine Sulfate () 4 mg IV Q3H PRN PRN PRN Reason: SEVERE PAIN (6-10/10) Last Admin: 04/24/18 09:13 Dose: 4 mg Morphine Sulfate () 2 mg IV Q3H PRN PRN PRN Reason: MOD-SEVERE PAIN (4-10/10) Ondansetron HCl (Zofran) 4 mg IV Q6H PRN PRN PRN Reason: NAUSEA Last Admin: 04/24/18 09:13 Dose: 4 mg Promethazine HCl (Phenergan) 12.5 mg IV Q6H PRN PRN PRN Reason: NAUSEA/VOMITING Sodium Chloride () 5 - 30 ml IV UD PRN PRN Reason: SALINE FLUSH Last Admin: 04/23/18 16:28 Dose: 10 ml Medical Necessity - Tobacco Use Smoking Status: Current every day smoker Assessment/Plan All Active Problems (Last Reviewed 04/17/18 @ 10:11 by Doris Ram) Chronic diarrhea (Acute) Infected dental caries (Acute) The patient is a 47 year old F with history of chronic cervical disc degeneration/herniation status post cervical spine surgery, possible PUD/GERD on PPI recently came to ER with abdominal pain, nausea and vomiting and diarrhea on and off for last 6 weeks. This is her third ER visit since 04/11/2015. Earlier patient was seen by Dr. Turpin in office and had [] Earlier CT abdomen and ultrasound the liver which reported as normal. Patient describes abdominal pain and cramps with waxing and waning in nature, sometimes very severe colicky nature but is still some pain remains after episode is over. Patient has nausea, vomiting and dry heaving, cleansed with a 15-20 times per day intermittently for last 6 weeks along with diarrhea which is loose, watery without blood. Denies GI bleed. Patient has appointment with Dr. Bolivar 05/22. In ED significant abnormal lab was lipase 1139. On previous occasions it was normal. Mild hypokalemia, K3.4. Mild leukocytosis 12,000. 1. Possible acute pancreatitis; exact etiology unclear: Patient has lipase 1139 which is 3 times upper limit. Repeat right upper quadrant reported as normal, even pancreas reported normal. In previous CT scan pancreas was reported normal. CBD measures 2 mm. Normal external gallbladder with GB wall 2 mm in recent right upper quadrant sonogram and 04/17. But at that time, lipase was normal at 147. Patient has accepted drinking alcohol on weekends but denies heavy drinking. Keep the patient n.p.o. patient had 2 L of normal saline bolus in ED. Continue IV fluid normal saline at 150 mL/h. Discussed with Dr. Turpin yesterday and he advised to consult Dr. Hu as he is going out of town. Still having diarrhea. Patient eager to have endoscopy but advised in acute pancreatitis endoscopic intervention generally is not recommended unless it is from hepatobiliary/CBD obstruction. 2. Acute abdominal pain, with nausea, vomiting and diarrhea; etiology unclear possible irritable bowel syndrome: Enteric bacteriology panel and stool lactoferrin are negative. I think given patient pain is subsided will need upper and lower GI endoscopy. Stool for C. difficile negative. 3. Other chronic comorbidities include cervical disc degeneration/discitis status post surgery, GERD/possible PUD, hypertension, home medication reconciliation done. Different etiologies of abdominal pain, pancreatitis, plan of management was discussed with the patient and her father. Patient seems a little agitated about being n.p.o., abdominal pain and about doctor has seen yet but I saw her yesterday. Code Visit Inpatient E&M: 50498 Subs Hosp L3
--- NOTE | 2018-04-24 13:03 | MRI_ITS ---
STUDY: MR CHOLANGIOPANCREATOGRAPHY (MRCP) REASON FOR EXAM: Female, 47 years old. Abd pain, n/v/d, elevated lipase TECHNIQUE: Standard MRCP technique was utilized. COMPARISON: Abdomen/Pelvis ct of Apr 11 2018 4:42pm FINDINGS: Gall Bladder: Normal with no distention or demonstrated fixed intraluminal filling defect. Cystic duct: Normal with no demonstrated fixed filling defect. Intrahepatic ducts: Normal visualized intrahepatic ducts with no demonstrated fixed filling defect, dilation or stricture. Common hepatic duct: Normal with no demonstrated fixed filling defect, dilation or stricture. Common bile duct: Normal with no demonstrated fixed filling defect, dilation or stricture. Pancreatic duct: Normal with no demonstrated fixed filling defect, dilation or stricture. MRI/MRCP Abdomen without Contrast IMPRESSION: Normal MR Cholangiopancreatography (MRCP). Electronically Signed: Johan Ching MD at 19:34 EDT , Service support ,
--- NOTE | 2018-04-24 13:05 | PCM.CONS.GEN ---
Problem List (1) Pancreatitis, acute Status: Acute Reason for Consult Date of Consultation: 04/24/18 Reason for Consultation: Acute pancreatitis History of Present Illness: The patient is a 47 year old F who presents with a 3 week history of waxing and waning abdominal pain, nausea, vomiting and diarrhea. Patient notes her symptoms started on . She was at a family picnic on Sunday where they had food and 3 beers on a hot day. Patient noted the following day, Sunday, she was noted her symptoms started. She thought possibly having the flu or heat exhaustion. Patient noted her abdominal pain was more upper abdomen on the right and left upper quadrants. Patient noted she waited for 1 1/2 weeks before reaching out to her PCP who recommended coming to the ED. She had a CT scan of the abdomen/pelvis on 04/11 which was unremarkable as well as her lab work. She was given 10 narcotic pain medications and Prilosec. Patient noted this did not help. Patient noted she was recommended to follow-up with Dr. Turpin. She was evaluated in the office by him on 04/17. He recommended a RUQ u/s. She was sent to the ED where the RUQ u/s was completed and was unremarkable. She noted labs were obtained and were unremarkable except for her potassium being low. She was given oral potassium. Patient was also scheduled to see gastroenterology on 05/22 for upper and lower scopes. Patient's abdominal pain continued and she presented to the ED. Patient noted on Sunday she had Ramen noodles for lunch and she noted abdominal pain right away. Patient noted she was able to eat veggie broth for dinner and tolerated that well. Patient noted in the middle of the night the abdominal pain woke her from sleep. Patient noted oily yellowish stools. Patient notes she has had a 10 pound weight loss since the start of her symptoms. She has not had much of an appetite. Patient smokes 1 ppd since a teenager. She notes at least 6 beers per week or more. Repeat RUQ u/s yesterday was unremarkable. Her lipase level was elevated at 1139 down to 985. WBC 12.1-->5.8, Hgb 12.2, Hct 35.8, plt 216. Liver enzymes unremarkable. C diff was negative. Past Medical History Past Medical History (Chronic Problems): Chronic Problems (Last Reviewed 04/24/18 @ 15:43 by Samantha Wolfe PA-C) Peptic ulcer disease (Chronic) GERD (gastroesophageal reflux disease) (Chronic) Cervical disc disorder (Chronic) Abdominal pain (Chronic) Hypertension (Chronic) Medical History: Medical History (Last Reviewed 04/24/18 @ 15:43 by Samantha Wolfe PA-C) Arthritis M19.90 Back pain M54.9 Neck pain M54.2 Raynauds disease I73.00 Shoulder pain M25.519 Hypertension I10 Allergies cyclobenzaprine HCl [From Flexeril] Adverse Reaction (Verified 04/23/18 06:04) UNABLE TO FUNCTION ON MED hydromorphone HCl [From Dilaudid] Adverse Reaction (Verified 04/23/18 06:04) Nausea Penicillins Adverse Reaction (Verified 04/23/18 06:04) YEAST INFECTION Home Medications: Ambulatory Orders Medication Instructions Recorded Hydrocodone Bitart/Apap 5-325 1 tab PO Q6H PRN PRN 3 Days #10 tab 04/11/18 [[place] 5MG-325MG] Metoclopramide [Reglan] 10 mg PO 4X/DAY PRN #20 tab 04/11/18 Omeprazole [Prilosec] 20 mg PO DAILY #30 cap 04/11/18 Ondansetron [Zofran Odt] 4 mg PO Q8H PRN PRN #10 tab 04/11/18 Potassium Chloride [K-Dur] 20 meq PO BID #8 tab 04/11/18 Dicyclomine HCl [Bentyl] 10 mg PO 4X/DAY PRN #12 cap 04/17/18 lisinopril 20 mg tablet 20 mg PO BID tab 04/17/18 Surgical History: Surgical History (Last Reviewed 04/24/18 @ 15:44 by Samantha Wolfe PA-C) Hx of cervical spine surgery Z98.890 Surgical History: - - Multiple cervical and lumbar surgeries Psychiatric History: Depression RETRIEVAL SPECIALIST History: No pertinent RETRIEVAL SPECIALIST history Lives: Spouse/ Significant Other Smoking Status: Current every day smoker Tobacco Use: Cigarettes Alcohol: Heavy - 6 beers or more per week Drugs: None - *Family History Maternal Family History: Family History (Last Reviewed 04/24/18 @ 15:45 by Samantha Wolfe PA-C) Other Cancer Diabetes Heart disease History Items: No pertinent history - Denies family history of irritable bowel syndrome Review of Systems Constitutional: Reports: Anorexia, Weight Change, Fatigue HEENT: Denies: Head Aches, Sinus Congestion, Sinus Drainage Cardiovascular: Denies: Chest Pain, Palpitations Respiratory: Denies: Cough, Shortness of breath at rest, Sputum production Gastrointestinal: Reports: Abdominal Pain, Diarrhea, Nausea, Vomiting Genitourinary: Denies: Dysuria Musculoskeletal: Reports: Back Pain, Neck Pain. Denies: Joint Pain, Joint Tenderness Skin: Denies: Rash, Wounds Neurological: Denies: Numbness, Tingling, Focal weakness Psychiatric: Reports: Depression Hematologic/ Lymphatic: Denies: Easy Bruising, Easy Bleeding Patient Problems: Active and Suspected Problems (Last Reviewed 04/24/18 @ 15:43 by Samantha Wolfe PA-C) Chronic diarrhea (Acute) Pancreatitis, acute (Acute) - Physical Exam General: Alert, Oriented x3, Cooperative HEENT: Atraumatic, PERRLA, EOMI, Normocephalic Neck: Supple, No JVD, Negative Carotid Bruits Lungs: Clear to auscultation, Normal air movement Cardiovascular: Regular rate, No murmurs Abdomen: Bowel Sounds Present, Soft, Tender - Upper abdomen; RUQ and LUQ Extremities: No edema, Capillary Refill Less than 3 Seconds Skin: No rashes, No breakdown Musculoskeletal: No Tenderness to Palpation of Joints or Extremities Neurological: Neuro grossly intact Psych/Mental Status: - - Tearful Vital Signs Temp Pulse Resp BP Pulse Ox 98.1 F 71 18 144/83 H 100 04/24/18 08:58 04/24/18 08:58 04/24/18 08:58 04/24/18 08:58 04/24/18 08:58 Oxygen Delivery Method Room Air Weight: 150 lb 9.211 oz Body Mass Index (BMI) 26.6 Intake and Output for Last 24 Hours 04/22/18 04/23/18 04/24/18 23:59 23:59 23:59 Intake Total 1018 / 1018 2299 / 2299 Output Total 441 / 441 Balance 577 / 577 2299 / 2299 Microbiology Past 72 Hours 04/23/18 12:35 C. difficile DNA Amplification - Final Stool Laboratory Tests Past 24 Hrs 04/24/18 04/24/18 05:30 05:30 WBC 5.8 RBC 3.71 L Hgb 12.2 Hct 35.8 L MCV 96.5 MCH 32.9 H MCHC 34.1 RDW 13.2 RDW Differential 43.9 Plt Count 216 MPV 10.4 Immature Gran % (Auto) 0.200 Neut % (Auto) 48.9 Lymph % (Auto) 37.3 [place] % (Auto) 10.9 H Eos % (Auto) 2.4 Baso % (Auto) 0.3 Absolute Neuts (auto) 2.8 Absolute Lymphs (auto) 2.16 Total Counted Not Reportable Sodium 143 Potassium 3.5 Chloride 111 H Carbon Dioxide 25.0 Anion Gap 7 BUN 6 L Creatinine 0.58 Estim Creat Clear Calc 99.19 Est GFR (MDRD) Af Amer 142 Est GFR (MDRD) Non-Af 117 BUN/Creatinine Ratio 10.3 Glucose 77 Calcium 8.3 L Lipase 985 H Assessment/Plan All Active Problems (Last Reviewed 04/24/18 @ 15:43 by Samantha Wolfe PA-C) Chronic diarrhea (Acute) Pancreatitis, acute (Acute) Infected dental caries (Acute) I have been consulted in conjunction with Dr. Arroyo. Impression: Acute pancreatitis. Upper abdominal pain Plan: I have discussed this patient with Dr. Arroyo. Recommend MRCP. Dr. Arroyo will plan to perform an upper scope with possible biopsies tomorrow morning. Procedure details, risks and benefits have been reviewed with the patient. Patient has had the opportunity to ask and have questions answered. Patient verbally understands and agrees to the plan. Thank you for allowing me to participate in this patient's care. My recommendations will be available via electronic medical records. Code Visit Office Visits / Consults: [id number] IP Consult L3
[2018-04-24 14:30] VITALS: BP 113/79; PULSE 77; RESP 18; TEMP 36.8; O2SAT 97
[2018-04-24] MEDS: 0.9% NaCl Peripheral Flush Adult/Peds IV (16:42)
[2018-04-24] MEDS: ALPRAZolam 0.5 MG Tablet PO (17:53)
[2018-04-24 22:22] VITALS: BP 174/98; PULSE 71; RESP 14; TEMP 37.2; O2SAT 100
[2018-04-25] VITALS (11 sets, daily range): BP systolic 84–140; BP diastolic 36–98; PULSE 71–98; RESP 14–18; TEMP 36.6–37.5; O2SAT 94–100; BMI 26.6
--- NOTE | 2018-04-25 | IMM_PTH ---
PATIENT: PETER OSMAN LOC: MS3 U#:[id number] AGE/SX: 47/F ROOM: SC311 RE04/23/[address]: Dr. Kesha Mccollum MD : 1970 BED: 1 DIS: 04/27/2018 SPEC #: [id number] RECD: 04/26/18 11:11 STATUS: SOUT REQ #: [id number] RAMESH: 04/25/18 00:[address]: Jose Cruz Arroyo DEPT: IMMUNOHISTOCHEMISTRY RECD BY: Ingrid Soto ENTERED: 04/26/18 11:12 SP TYPE: IMMUNO OTHR DR: MD Dr. Alexander Souza MD Dr. Tamera Robotham, MD No Primary Care Phys Tissues: Stomach, NOS Procedures: H Pylori (initial) Comments: @ Ordering doctor for H.PYLORI edited from to DR.DPEABO Randall by EMILI at 04/26/18 113 @ Submitting doctor edited from to DR.DPEABO Randall by EMILI at 04/26/18 113 PHYSICIAN & [place] [id number] SPECIMEN INFORMATION: Tissue Source: Antral biopsy Clinical Info: Abdominal pain Specimen Number: [id number] CPT code: 30263 METHODOLOGY: Deparaffinized sections of prefer/formalin-fixed tissue or PAP/DQ stained slides are incubated with monoclonal/polyclonal antibodies/oligonucleotide probes. Localization is made via biotin free immunoperoxidase method. Appropriate controls are performed and reacted as expected. Results on target cell population are indicated in the following table: RESULTS: ANTIBODY / CLONE RESULT H Pylori (polyclonal) positive These tests were developed and their performance characteristics determined by [facility]. They may not have been cleared or approved by the U.S. Food and Drug Administration. The FDA has determined that such clearance or approval is not necessary. INTERPRETATION: Antral biopsy: Positive for Helicobacter pylori organisms. [place]:[email or web address] 04/29/18
[2018-04-25] MEDS: 0.9% Normal Saline 1,000 ML 150 ML IV ×3 (00:56→10:53)
[2018-04-25] MEDS: Morphine 4 MG/ML Syringe IV ×4 (03:20→21:54)
[2018-04-25 06:24] LABS: Absolute Lymphocyte Count 1.48 X10^3/ul (0.83-4.51); Absolute Neutrophil Count 3.2 X10^3/uL (2.0-7.7); Basophil# 0.03 X10^3/uL; Basophil% 0.6 % (0-1); Eosinophil# 0.13 X10^3/uL; Eosinophils% 2.4 % (0-5); Hematocrit 35.4 % (37-47); Hemoglobin 11.8 g/dl (12.0-15.0); Lymphocyte # 1.48 X10^3/ul (4.0); Lymphocyte % 27.4 % (19-41); Mean Corp Hgb Conc 33.3 g/gl (32-36); Mean Corpuscular Hgb 32.3 pg (27.0-32.0); Mean Platelet Vol. 10.3 fl (6.2-12.0); Monocyte# 0.56 X10^3/uL; Monocyte% 10.4 % (0-10); Platelet Count 218 K/mm3 (150-450); RBC Distribution Width CV 13.1 % (11.6-14.6); Red Blood Count 3.65 M/mm3 (4.2-5.4); White Blood Count 5.4 K/mm3 (4.4-11.0)
[2018-04-25 06:30] LABS: POSITIVE COUNT NO; POSITIVE DIFFERENTIAL NO; POSITIVE MORPHOLOGY NO
[2018-04-25 07:00] LABS: ALB/GLOB Ratio 0.8 RATIO (0.9-2.4); AST(SGOT) 12 U/L (15-37); Alanine Aminotransfer ALT/SGPT 17 U/L (13-56); Albumin, Serum 2.5 g/dL (3.2-5.0); Alkaline Phosphatase 89 U/L (45-117); Anion Gap 14 (5-15); BUN 4 mg/dL (7-18); BUN/Creat Ratio 7.7 RATIO (10-20); Calcium,Total 8.1 mg/dL (8.5-10.1); Chloride 110 mmol/L (98-107); Creatinine, Serum 0.52 mg/dL (0.55-1.02); EST Glomerular Filtration Rate 134 mL/min (>60); Est Glom Filt Rate - Afr Amer 162 mL/min (>60); Estimated Creatinine Clearance 110.64 ml/min; Globulin 3.3 g/dL (2.2-4.2); Glucose 43 mg/dL (74-106); Lipase 771 U/L (73-393); Potassium 3.7 mmol/L (3.5-5.1); Protein, Total 5.8 g/dL (6.4-8.2); Sodium Level 141 mmol/L (136-145)
--- NOTE | 2018-04-25 07:00 | EGD_PTH ---
PATIENT: PETER OSMAN LOC: MS3 U#:[id number] AGE/SX: 47/F ROOM: MS311 RE04/23/[address]: Dr. Kesha Mccollum MD : 1970 BED: 1 DIS: 04/27/2018 SPEC #: [id number] RECD: 04/25/18 07:59 STATUS: MELISSA REShirley #: [id number] RAMESH: 04/25/18 07:[address]: Jose Cruz Arroyo DEPT: SURGICAL PATHOLOGY RECD BY: Parveen Jara ENTERED: 04/25/18 09:28 SP TYPE: EGD BIOPSY OT DR: MD Dr. Alexander Souza MD Dr. Tamera Robotham, MD No Primary Care Phys Tissues: Gastric mucous membrane Procedures: Surgery Specimen Level IV HEADER OPER[place] [place] DIAGNOSIS: Abdominal pain TISSUE SUBMITTED: Antral biopsy MICROSCOPIC DIAGNOSIS Antral biopsy: Mild gastritis. See microscopic description and comment. [place]:[email or web address] 04/26/18 COMMENT The results of immunohistochemistry for Helicobacter pylori will be reported separately ([id number]). MICROSCOPIC DESCRIPTION Slides are reviewed. The specimen shows fragments of gastric mucosa with chronic inflammatory cell infiltrates in the lamina propria consisting of lymphocytes and plasma cells, consistent with mild chronic gastritis. GROSS DESCRIPTION Received in fixative is one container labeled with the patient's name and designated antral biopsy. The specimen consists of two irregular fragments of light bush soft tissue that in aggregate measure 0.3 x 0.2 x 0.1 cm. The specimen is totally submitted in one cassette. / Katerina 04/25/18 TC:3 [facility]: [id number]
--- NOTE | 2018-04-25 07:01 | NURSING ---
recieved results from lab of glucose of 43, informed primary RN aware pt in endo/ac and did not have OT checked this a.m. called AC talked w/ pt's nurse isauro and informed of lab results.
--- NOTE | 2018-04-25 07:36 | OP.ENDO_ITS ---
Patient Name: Veronica Teran Procedure Date: 04/25/2018 7:11 AM Date of : 1970 Age: 47 Procedure: Upper GI endoscopy Indications: Epigastric abdominal pain, Upper abdominal pain, Personal history of peptic ulcer disease Providers: Jose Cruz Arroyo MD Medicines: See the Anesthesia note for documentation of the administered medications Patient Profile: Patient has symptoms of acute epigastric abdominal pain, acute nausea and acute vomiting. The symptoms first began within the past few weeks. Complications: No immediate complications. Procedure: Pre-Anesthesia Assessment: - Prior to the procedure, a History and Physical was performed, and patient medications and allergies were reviewed. The patient's tolerance of previous anesthesia was also reviewed. The risks and benefits of the procedure and the sedation options and risks were discussed with the patient. All questions were answered, and informed consent was obtained. Prior Anticoagulants: The patient has taken no previous anticoagulant or antiplatelet agents. ASA Grade Assessment: III - A patient with severe systemic disease. After reviewing the risks and benefits, the patient was deemed in satisfactory condition to undergo the procedure. After obtaining informed consent, the endoscope was passed under direct vision. Throughout the procedure, the patient's blood pressure, pulse, and oxygen saturations were monitored continuously. The gastroscope was introduced through the mouth, and advanced to the second part of duodenum. The upper GI endoscopy was accomplished without difficulty. The patient tolerated the procedure well. Scope In: 7:19:08 AM Scope Out: 7:23:12 AM Total Procedure Duration Time 0 hours 4 minutes 4 seconds Findings: The Z-line was regular and was found 41 cm from the incisors. No biopsies or other specimens were collected for this exam. Localized minimal inflammation characterized by erythema was found in the prepyloric region of the stomach. Biopsies were taken with a cold forceps for Helicobacter pylori testing using PyloriTek test. The examined duodenum was normal. No biopsies or other specimens were collected for this exam. Impression: - Z-line regular, 41 cm from the incisors. No specimens collected. No Hiatal Hernia - Gastritis. Biopsied. - Normal examined duodenum. No specimens collected. Recommendation: - [facility]. - Advance diet as tolerated. - Continue present medications. - Await pathology results. - Repeat upper endoscopy after studies are complete for surveillance based on pathology results. - Perform a HIDA (hepatobiliary iminodiacetic acid) scan with EF today. Procedure Code(s): --- Professional --- 24935, Esophagogastroduodenoscopy, flexible, transoral; with biopsy, single or multiple Diagnosis Code(s): --- Professional --- K29.70, Gastritis, unspecified, without bleeding R10.13, Epigastric pain R10.10, Upper abdominal pain, unspecified Z87.11, Personal history of peptic ulcer disease CPT copyright 2017 [employer]. All rights reserved. The codes documented in this report are preliminary and upon supervisor transferring and boxing review may be revised to meet current compliance requirements. MD Jose Cruz Martinez MD 04/25/2018 7:36:09 AM This report has been signed electronically. Number of Addenda: 0 Note Initiated On: 04/25/2018 7:11 AM
--- NOTE | 2018-04-25 07:36 | PCM.IMDPSTOP ---
Immediate Post-Op Note Date of Procedure: 04/25/18 Primary Surgeon/Physician: Jose Cruz Arroyo risk adjustment specialist: none Pre-Operative Diagnosis: Epigastric abdominal pain. Nausea and vomiting Post-Operative Diagnosis: Same Surgery/Procedure Performed:: Esophagogastroduodenoscopy with biopsy Description of Surgical Findings:: Patient had minimal gastritis. Biopsy for H. pylori was obtained. There was no signs of any ulcers. The duodenum all looked entirely normal. The esophagus was entirely normal. There was no signs of a hiatal hernia. There was no signs of esophagitis. We will await the H. pylori biopsy results and we will obtain a HIDA scan with ejection fraction today Estimated Blood Loss: <5cc Specimen's removed: H. pylori biopsy Type of Anesthesia:: MAC ASA Class: ASA3 Severe Disease - Admit VTE Documentation VTE Present on Admission: No VTE Mechan Device Prophylaxis: None VTE Pharm Prophylaxis ordered?: No Reason prophylaxis not ordered:: Treatment Not Indicated
--- NOTE | 2018-04-25 07:40 | OP.PN_ITS ---
Immediate Post-Op Note Date of Procedure: 04/25/18 Primary Surgeon/Physician: Jose Cruz Arroyo e commerce architect: none Pre-Operative Diagnosis: Epigastric abdominal pain. Nausea and vomiting Post-Operative Diagnosis: Same Surgery/Procedure Performed:: Esophagogastroduodenoscopy with biopsy Description of Surgical Findings:: Patient had minimal gastritis. Biopsy for H. pylori was obtained. There was no signs of any ulcers. The duodenum all looked entirely normal. The esophagus was entirely normal. There was no signs of a hiatal hernia. There was no signs of esophagitis. We will await the H. pylori biopsy results and we will obtain a HIDA scan with ejection fraction today Estimated Blood Loss: <5cc Specimen's removed: H. pylori biopsy Type of Anesthesia:: MAC ASA Class: ASA3 Severe Disease - Admit VTE Documentation VTE Present on Admission: No VTE Mechan Device Prophylaxis: None VTE Pharm Prophylaxis ordered?: No Reason prophylaxis not ordered:: Treatment Not Indicated
--- NOTE | 2018-04-25 07:42 | NM_ITS ---
CLINICAL: 47-year-old female with reported history of abdominal pain and nausea. RADIONUCLIDE HEPATOBILIARY SCINTIGRAPHY COMPARISON: Abdominal ultrasound report 04/17/2018, CT of the abdomen-pelvis report 04/11/2018, MRI of the gallbladder report 04/24/2018 FINDINGS: Following the intravenous administration of 5.8 mCi of 99m Tc Mebrofenin, hepatobiliary images reveal: 1. Relatively prompt and homogeneous radiopharmaceutical concentration is noted by a normal sized liver. No parenchymal defects are identified. 2. Gallbladder activity is identified at [dv] minutes post radiopharmaceutical administration. 3. Small intestinal tract is observed at [dv] minutes post radiopharmaceutical administration. 4. Washout of the radiopharmaceutical by the hepatic parenchyma occurs in a normal fashion on qualitative inspection. The patient was administered a fatty meal (8 ounces Boost). The post fatty meal ingestion gallbladder ejection fraction calculated at 60 minutes was noted to be 21.0 % (normal greater than 30%). There is visualized post fatty meal duodenal-gastric reflux. [place]/Hepatobilliary Img w/Pharm Int IMPRESSION: 1. ABNORMAL 99m Tc Mebrofenin hepatobiliary imaging examination with fatty meal ingestion. A. A gallbladder ejection fraction calculated to be less than 30% following the administration of an ingested fatty meal is consistent with the presence of functional hepatobiliary disease (gallbladder and/or sphincter of Oddi dyskinesia) and/or organic hepatobiliary disease (chronic acalculous cholecystitis and/or cystic duct syndrome) in patients with intermediate to high pretest probabilities of hepatobiliary illness. (Maco and Ildefonso, J Nucl Med 43: 1603, 2002). B. Duodenal-gastric reflux is defined following fatty meal consumption. Electronically Signed: Malcolm Hodge DO at 16:37 EDT Tel , Service support ,
[2018-04-25 08:31] LABS: Bedside Glucose 130 mg/dL (70-110)
--- NOTE | 2018-04-25 13:18 | PCM.PN.HOSP ---
Patient Problems: Active and Suspected Problems (Last Reviewed 04/24/18 @ 15:43 by Samantha Wolfe PA-C) Chronic diarrhea (Acute) Pancreatitis, acute (Acute) Vitals/I&O's: Vital Signs Temp Pulse Resp BP Pulse Ox 98.1 F 71 18 127/84 H 99 04/25/18 08:16 04/25/18 08:16 04/25/18 08:16 04/25/18 08:16 04/25/18 08:16 Oxygen Delivery Method Room Air Weight: 150 lb 9.211 oz Body Mass Index (BMI) 26.6 Intake and Output for Last 24 Hours 04/23/18 04/24/18 04/25/18 23:59 23:59 23:59 Intake Total 1018 / 1018 2508 / 2508 1370 / 1370 Output Total 441 / 441 441 / 441 Balance 577 / 577 2508 / 2508 929 / 929 Microbiology Past 72 Hours 04/23/18 12:35 Stool C. difficile DNA Amplification - Final Laboratory Results 04/25/18 05:25: WBC 5.4, RBC 3.65 L, Hgb 11.8 L, Hct 35.4 L, MCV 97.0, MCH 32.3 H, MCHC 33.3, RDW 13.1, RDW Differential 45.0 H, Plt Count 218, MPV 10.3, Immature Gran % (Auto) 0.200, Neut % (Auto) 59.0, Lymph % (Auto) 27.4, [place] % (Auto) 10.4 H, Eos % (Auto) 2.4, Baso % (Auto) 0.6, Absolute Neuts (auto) 3.2, Absolute Lymphs (auto) 1.48, Total Counted Not Reportable 04/25/18 05:25: Sodium 141, Potassium 3.7, Chloride 110 H, Carbon Dioxide 17.0 L, Anion Gap 14, BUN 4 L, Creatinine 0.52 L, Estim Creat Clear Calc 110.64, Est GFR (MDRD) Af Amer 162, Est GFR (MDRD) Non-Af 134, BUN/Creatinine Ratio 7.7 L, Glucose 43 L*, Calcium 8.1 L, Total Bilirubin 0.40, AST 12 L, ALT 17, Alkaline Phosphatase 89, Total Protein 5.8 L, Albumin 2.5 L, Globulin 3.3, Albumin/Globulin Ratio 0.8 L, Lipase 771 H 04/25/18 08:22: POC Glucose 130 H Current Medications Acetaminophen (Tylenol) 650 mg PO Q6H PRN PRN PRN Reason: Mild Pain (scale 0-3)/T>100.7 Alprazolam (Xanax) 0.5 mg PO TID PRN PRN PRN Reason: ANXIETY Last Admin: 04/24/18 17:53 Dose: 0.5 mg Dicyclomine HCl (Bentyl) 10 mg PO 4X/DAY PRN PRN Reason: abdominal pain Last Admin: 04/24/18 16:42 Dose: 10 mg Enoxaparin Sodium (Lovenox) 40 mg SC DAILY@1000 TIMUR Last Admin: 04/25/18 10:59 Dose: Not Given Sodium Chloride () 1,000 mls @ 150 mls/hr IV .Q6H40M [facility] Last Admin: 04/25/18 10:53 Dose: 150 mls/hr Lisinopril (Zestril) 20 mg PO BID [facility] Last Admin: 04/24/18 21:56 Dose: 20 mg Morphine Sulfate () 4 mg IV Q3H PRN PRN PRN Reason: SEVERE PAIN (6-10/10) Last Admin: 04/25/18 03:20 Dose: 4 mg Morphine Sulfate () 2 mg IV Q3H PRN PRN PRN Reason: MOD-SEVERE PAIN (4-10/10) Ondansetron HCl (Zofran) 4 mg IV Q6H PRN PRN PRN Reason: NAUSEA Last Admin: 04/24/18 09:13 Dose: 4 mg Promethazine HCl (Phenergan) 12.5 mg IV Q6H PRN PRN PRN Reason: NAUSEA/VOMITING Sodium Chloride () 5 - 30 ml IV UD PRN PRN Reason: SALINE FLUSH Last Admin: 04/24/18 16:42 Dose: 10 ml Medical Necessity - Tobacco Use Smoking Status: Current every day smoker Tobacco Use: Cigarettes Assessment/Plan All Active Problems (Last Reviewed 04/24/18 @ 15:43 by Samantha Wolfe PA-C) Chronic diarrhea (Acute) Pancreatitis, acute (Acute) Infected dental caries (Acute)
--- NOTE | 2018-04-25 13:19 | PCM.PN.HOSP ---
Patient Problems: Active and Suspected Problems (Last Reviewed 04/24/18 @ 15:43 by Samantha Wolfe PA-C) Chronic diarrhea (Acute) Pancreatitis, acute (Acute) Subjective: Patient is still has abdominal pain, using heat pad. It is diffuse but mainly upper abdomen. Lipase is getting better. LFT within normal limit. Vitals/I&O's: Vital Signs Temp Pulse Resp BP Pulse Ox 98.1 F 71 18 127/84 H 99 04/25/18 08:16 04/25/18 08:16 04/25/18 08:16 04/25/18 08:16 04/25/18 08:16 Oxygen Delivery Method Room Air Weight: 150 lb 9.211 oz Body Mass Index (BMI) 26.6 Intake and Output for Last 24 Hours 04/23/18 04/24/18 04/25/18 23:59 23:59 23:59 Intake Total 1018 / 1018 2508 / 2508 1370 / 1370 Output Total 441 / 441 441 / 441 Balance 577 / 577 2508 / 2508 929 / 929 General: Alert, Oriented x3, Cooperative HEENT: Atraumatic, PERRLA, EOMI, Normocephalic Neck: Supple, No JVD, Negative Carotid Bruits Lungs: Clear to auscultation, Normal air movement Cardiovascular: Regular rate, Regular Rhythm, Normal S1, Normal S2, No murmurs Abdomen: Bowel Sounds Present, Soft, Hypoactive Bowel Sounds, Tender Extremities: No edema, Capillary Refill Less than 3 Seconds Skin: No rashes, No breakdown Musculoskeletal: No Tenderness to Palpation of Joints or Extremities Neurological: Cranial nerves II-XII grossly intact Psych/Mental Status: Normal Affect, Appropriate Microbiology Past 72 Hours 04/23/18 12:35 Stool C. difficile DNA Amplification - Final Laboratory Results 04/25/18 05:25: WBC 5.4, RBC 3.65 L, Hgb 11.8 L, Hct 35.4 L, MCV 97.0, MCH 32.3 H, MCHC 33.3, RDW 13.1, RDW Differential 45.0 H, Plt Count 218, MPV 10.3, Immature Gran % (Auto) 0.200, Neut % (Auto) 59.0, Lymph % (Auto) 27.4, [place] % (Auto) 10.4 H, Eos % (Auto) 2.4, Baso % (Auto) 0.6, Absolute Neuts (auto) 3.2, Absolute Lymphs (auto) 1.48, Total Counted Not Reportable 04/25/18 05:25: Sodium 141, Potassium 3.7, Chloride 110 H, Carbon Dioxide 17.0 L, Anion Gap 14, BUN 4 L, Creatinine 0.52 L, Estim Creat Clear Calc 110.64, Est GFR (MDRD) Af Amer 162, Est GFR (MDRD) Non-Af 134, BUN/Creatinine Ratio 7.7 L, Glucose 43 L*, Calcium 8.1 L, Total Bilirubin 0.40, AST 12 L, ALT 17, Alkaline Phosphatase 89, Total Protein 5.8 L, Albumin 2.5 L, Globulin 3.3, Albumin/Globulin Ratio 0.8 L, Lipase 771 H 04/25/18 08:22: POC Glucose 130 H Current Medications Acetaminophen (Tylenol) 650 mg PO Q6H PRN PRN PRN Reason: Mild Pain (scale 0-3)/T>100.7 Alprazolam (Xanax) 0.5 mg PO TID PRN PRN PRN Reason: ANXIETY Last Admin: 04/24/18 17:53 Dose: 0.5 mg Dicyclomine HCl (Bentyl) 10 mg PO 4X/DAY PRN PRN Reason: abdominal pain Last Admin: 04/24/18 16:42 Dose: 10 mg Enoxaparin Sodium (Lovenox) 40 mg SC DAILY@1000 TIMUR Last Admin: 04/25/18 10:59 Dose: Not Given Sodium Chloride () 1,000 mls @ 150 mls/hr IV .Q6H40M [facility] Last Admin: 04/25/18 10:53 Dose: 150 mls/hr Lisinopril (Zestril) 20 mg PO BID [facility] Last Admin: 04/24/18 21:56 Dose: 20 mg Morphine Sulfate () 4 mg IV Q3H PRN PRN PRN Reason: SEVERE PAIN (6-10/10) Last Admin: 04/25/18 03:20 Dose: 4 mg Morphine Sulfate () 2 mg IV Q3H PRN PRN PRN Reason: MOD-SEVERE PAIN (4-10/10) Ondansetron HCl (Zofran) 4 mg IV Q6H PRN PRN PRN Reason: NAUSEA Last Admin: 04/24/18 09:13 Dose: 4 mg Promethazine HCl (Phenergan) 12.5 mg IV Q6H PRN PRN PRN Reason: NAUSEA/VOMITING Sodium Chloride () 5 - 30 ml IV UD PRN PRN Reason: SALINE FLUSH Last Admin: 04/24/18 16:42 Dose: 10 ml Medical Necessity - Tobacco Use Smoking Status: Current every day smoker Tobacco Use: Cigarettes Assessment/Plan All Active Problems (Last Reviewed 04/24/18 @ 15:43 by Samantha Wolfe PA-C) Chronic diarrhea (Acute) Pancreatitis, acute (Acute) Infected dental caries (Acute) The patient is a 47 year old F with history of chronic cervical disc degeneration/herniation status post cervical spine surgery, possible PUD/GERD on PPI recently came to ER with abdominal pain, nausea and vomiting and diarrhea on and off for last 6 weeks. This is her third ER visit since 04/11/2015. Earlier patient was seen by Dr. Turpin in office and had [] Earlier CT abdomen and ultrasound the liver which reported as normal. Patient describes abdominal pain and cramps with waxing and waning in nature, sometimes very severe colicky nature but is still some pain remains after episode is over. Patient has nausea, vomiting and dry heaving, cleansed with a 15-20 times per day intermittently for last 6 weeks along with diarrhea which is loose, watery without blood. Denies GI bleed. Patient has appointment with Dr. Bolivar 05/22. In ED significant abnormal lab was lipase 1139. On previous occasions it was normal. Mild hypokalemia, K3.4. Mild leukocytosis 12,000. 1. Possible acute pancreatitis; exact etiology unclear: Patient has lipase 1139 which is 3 times upper limit. Lipase is improving. Repeat right upper quadrant reported as normal, even pancreas reported normal. MRCP normal. Patient had EGD on 04/25 and reported as minimal gastritis with no signs of ulcer. In previous CT scan pancreas was reported normal. CBD measures 2 mm. Normal external gallbladder with GB wall 2 mm in recent right upper quadrant sonogram and 04/17. But at that time, lipase was normal at 147. Patient has accepted drinking alcohol on weekends but denies heavy drinking. Keep the patient n.p.o. patient had 2 L of normal saline bolus in ED. Patient had hypoglycemia today: IV fluids changed to D5 half NS. 2. Acute abdominal pain, with nausea, vomiting and diarrhea; etiology unclear possible irritable bowel syndrome: Enteric bacteriology panel and stool lactoferrin are negative. I think given patient pain is subsided will need upper and lower GI endoscopy. Stool for C. difficile negative. 3. Hypertension: Blood pressure was lower in the morning 84/50 and 102/50. Lisinopril decreased to 10 mg daily. Other chronic comorbidities include cervical disc degeneration/discitis status post surgery, GERD/possible PUD, hypertension, home medication reconciliation done. Different etiologies of abdominal pain, pancreatitis, plan of management was discussed with the patient and her father. DVT prophylaxis: On enoxaparin. Code Visit Inpatient E&M: [id number] [facility] L3
--- NOTE | 2018-04-25 13:38 | PN_ITS ---
Patient Problems: Active and Suspected Problems (Last Reviewed 04/24/18 @ 15:43 by Samantha Wolfe PA-C) Chronic diarrhea (Acute) Pancreatitis, acute (Acute) Vitals/I&O's: Vital Signs Temp Pulse Resp BP Pulse Ox 98.1 F 71 18 127/84 H 99 04/25/18 08:16 04/25/18 08:16 04/25/18 08:16 04/25/18 08:16 04/25/18 08:16 Oxygen Delivery Method Room Air Weight: 150 lb 9.211 oz Body Mass Index (BMI) 26.6 Intake and Output for Last 24 Hours 04/23/18 04/24/18 04/25/18 23:59 23:59 23:59 Intake Total 1018 / 1018 2508 / 2508 1370 / 1370 Output Total 441 / 441 441 / 441 Balance 577 / 577 2508 / 2508 929 / 929 Microbiology Past 72 Hours 04/23/18 12:35 Stool C. difficile DNA Amplification - Final Laboratory Results 04/25/18 05:25: WBC 5.4, RBC 3.65 L, Hgb 11.8 L, Hct 35.4 L, MCV 97.0, MCH 32.3 H, MCHC 33.3, RDW 13.1, RDW Differential 45.0 H, Plt Count 218, MPV 10.3, Immature Gran % (Auto) 0.200, Neut % (Auto) 59.0, Lymph % (Auto) 27.4, [place] % (Auto) 10.4 H, Eos % (Auto) 2.4, Baso % (Auto) 0.6, Absolute Neuts (auto) 3.2, Absolute Lymphs (auto) 1.48, Total Counted Not Reportable 04/25/18 05:25: Sodium 141, Potassium 3.7, Chloride 110 H, Carbon Dioxide 17.0 L , Anion Gap 14, BUN 4 L, Creatinine 0.52 L, Estim Creat Clear Calc 110.64, Est GFR (MDRD) Af Amer 162, Est GFR (MDRD) Non-Af 134, BUN/Creatinine Ratio 7.7 L, Glucose 43 L*, Calcium 8.1 L, Total Bilirubin 0.40, AST 12 L, ALT 17, Alkaline Phosphatase 89, Total Protein 5.8 L, Albumin 2.5 L, Globulin 3.3, Albumin/Globulin Ratio 0.8 L, Lipase 771 H 04/25/18 08:22: POC Glucose 130 H Current Medications Acetaminophen (Tylenol) 650 mg PO Q6H PRN PRN PRN Reason: Mild Pain (scale 0-3)/T>100.7 Alprazolam (Xanax) 0.5 mg PO TID PRN PRN PRN Reason: ANXIETY Last Admin: 04/24/18 17:53 Dose: 0.5 mg Dicyclomine HCl (Bentyl) 10 mg PO 4X/DAY PRN PRN Reason: abdominal pain Last Admin: 04/24/18 16:42 Dose: 10 mg Enoxaparin Sodium (Lovenox) 40 mg SC DAILY@1000 TIMUR Last Admin: 04/25/18 10:59 Dose: Not Given Sodium Chloride () 1,000 mls @ 150 mls/hr IV .Q6H40M [facility] Last Admin: 04/25/18 10:53 Dose: 150 mls/hr Lisinopril (Zestril) 20 mg PO BID [facility] Last Admin: 04/24/18 21:56 Dose: 20 mg Morphine Sulfate () 4 mg IV Q3H PRN PRN PRN Reason: SEVERE PAIN (6-10/10) Last Admin: 04/25/18 03:20 Dose: 4 mg Morphine Sulfate () 2 mg IV Q3H PRN PRN PRN Reason: MOD-SEVERE PAIN (4-10/10) Ondansetron HCl (Zofran) 4 mg IV Q6H PRN PRN PRN Reason: NAUSEA Last Admin: 04/24/18 09:13 Dose: 4 mg Promethazine HCl (Phenergan) 12.5 mg IV Q6H PRN PRN PRN Reason: NAUSEA/VOMITING Sodium Chloride () 5 - 30 ml IV UD PRN PRN Reason: SALINE FLUSH Last Admin: 04/24/18 16:42 Dose: 10 ml Medical Necessity - Tobacco Use Smoking Status: Current every day smoker Tobacco Use: Cigarettes Assessment/Plan All Active Problems (Last Reviewed 04/24/18 @ 15:43 by Samantha Wolfe PA-C) Chronic diarrhea (Acute) Pancreatitis, acute (Acute) Infected dental caries (Acute)
[2018-04-25] MEDS: ALPRAZolam 0.5 MG Tablet PO ×2 (14:53→23:05)
[2018-04-25] MEDS: Ondansetron 4 MG/2 ML Vial IV ×2 (15:02→21:54)
[2018-04-25] MEDS: 0.9% NaCl Peripheral Flush Adult/Peds IV ×2 (15:55→18:37)
[2018-04-25] MEDS: proMETHazine 25 MG/ML Syringe 12.5 MG IV (15:55)
[2018-04-26] VITALS (14 sets, daily range): BP systolic 93–149; BP diastolic 65–105; PULSE 60–84; RESP 16–18; TEMP 36.5–37.3; O2SAT 92–100
--- NOTE | 2018-04-26 | GALL_PTH ---
PATIENT: PETER OSMAN LOC: MS3 U#:[id number] AGE/SX: 47/F ROOM: MS311 RE04/23/[address]: Dr. Kesha Mccollum MD : 1970 BED: 1 DIS: 04/27/2018 SPEC #: [id number] RECD: 04/26/18 13:20 STATUS: MELISSA REQ #: [id number] RAMESH: 04/26/18 00:[address]: Stephenie Hinson DEPT: SURGICAL PATHOLOGY RECD BY: Pietro Donis ENTERED: 04/26/18 13:20 SP TYPE: GALLBLADDE OTHR DR: MD Dr. Alexander Souza MD Dr. Tamera Robotham, MD No Primary Care Phys Tissues: Gallbladder, NOS Procedures: Surgery Specimen Level III Comments: @ Ordering doctor for SUIII edited from to @ by EMILI at 04/29/18828 @ Submitting doctor edited from to @ by EMILI at 04/29/18828 HEADER OPERATION: Laparoscopic cholecystectomy with IOC PRE-OP DIAGNOSIS: Pancreatitis, biliary dyskinesia TISSUE SUBMITTED: Gallbladder and contents MICROSCOPIC DIAGNOSIS Gallbladder and contents: Chronic cholecystitis. No stones are identified in the container or in the gallbladder. [place]:[email or web address] 04/29/18 MICROSCOPIC DESCRIPTION Slides are reviewed. GROSS DESCRIPTION Received is one container labeled with the patient's name and designated gallbladder and contents. The specimen consists of a gallbladder measuring 6 cm in length and up to 2.5 cm in diameter. The external surface is pink-bush, smooth and glistening for the most part. Focally it is granular, hemorrhagic and contains cautery artifact. The gallbladder contains green-yellow mucoid bile. No stones are identified in the container or in the gallbladder. The mucosa is bile-stained and without any mass lesions. The gallbladder wall measures up to 0.3 cm in thickness. Salad [employer] Clerk sections from the gallbladder and the cystic duct are submitted in one cassette. / [place]:[email or web address] 04/26/18 TC:3 CPT: 87860
[2018-04-26] MEDS: Morphine 4 MG/ML Syringe IV ×3 (03:10→14:49)
[2018-04-26] MEDS: proMETHazine 25 MG/ML Syringe 12.5 MG IV ×2 (03:10→14:57)
[2018-04-26] MEDS: Dicyclomine 10 MG Capsule PO (03:16)
[2018-04-26 06:23] LABS: Absolute Neutrophil Count 2.1 X10^3/uL (2.0-7.7); Basophil# 0.03 X10^3/uL; Basophil% 0.7 % (0-1); Eosinophil# 0.09 X10^3/uL; Eosinophils% 2.2 % (0-5); Hematocrit 35.1 % (37-47); Lymphocyte % 31.7 % (19-41); Mean Corp Hgb Conc 34.2 g/gl (32-36); Mean Corpuscular Hgb 32.7 pg (27.0-32.0); Mean Corpuscular Volume 95.6 fL (81-99); Mean Platelet Vol. 10.3 fl (6.2-12.0); Monocyte# 0.58 X10^3/uL; Monocyte% 14.1 % (0-10); Neutrophil % 51.3 % (47-70); Platelet Count 204 K/mm3 (150-450); RBC Distribution Width SD 43.5 fl (35.1-43.9); Red Blood Count 3.67 M/mm3 (4.2-5.4); White Blood Count 4.1 K/mm3 (4.4-11.0)
[2018-04-26 06:24] LABS: POSITIVE COUNT NO; POSITIVE DIFFERENTIAL NO; POSITIVE MORPHOLOGY NO
[2018-04-26 06:28] LABS: ALB/GLOB Ratio 0.7 RATIO (0.9-2.4); AST(SGOT) 13 U/L (15-37); Alanine Aminotransfer ALT/SGPT 20 U/L (13-56); Albumin, Serum 2.4 g/dL (3.2-5.0); Alkaline Phosphatase 85 U/L (45-117); Anion Gap 9 (5-15); BUN 3 mg/dL (7-18); BUN/Creat Ratio 4.6 RATIO (10-20); Calcium,Total 8.6 mg/dL (8.5-10.1); Chloride 108 mmol/L (98-107); Creatinine, Serum 0.65 mg/dL (0.55-1.02); EST Glomerular Filtration Rate 103 mL/min (>60); Est Glom Filt Rate - Afr Amer 125 mL/min (>60); Estimated Creatinine Clearance 88.51 ml/min; Globulin 3.4 g/dL (2.2-4.2); Glucose 115 mg/dL (74-106); Lipase 545 U/L (73-393); Potassium 3.6 mmol/L (3.5-5.1); Protein, Total 5.8 g/dL (6.4-8.2); Sodium Level 142 mmol/L (136-145)
[2018-04-26] MEDS: ALPRAZolam 0.5 MG Tablet PO ×2 (07:54→22:33)
[2018-04-26] MEDS: Ondansetron 4 MG/2 ML Vial IV ×2 (07:55→21:09)
--- NOTE | 2018-04-26 08:35 | PN.SURG_ITS ---
Patient Problems: Active and Suspected Problems (Last Reviewed 04/24/18 @ 15:43 by Samantha Wolfe PA-C) Chronic diarrhea (Acute) Pancreatitis, acute (Acute) Subjective: Patient complains of upper abdominal pain greater than lower abdominal pain, nausea and vomiting - Physical Exam General: Alert, Oriented x3, Cooperative, No apparent distress HEENT: Atraumatic Lungs: Normal air movement Cardiovascular: Regular rate Abdomen: Soft, Non-Distended, Passing Flatus, Tender - Epigastric and right upper quadrant and left upper quadrant greater than bilateral lower quadrants Extremities: No clubbing, No cyanosis, No edema Skin: No rashes Neurological: Cranial nerves II-XII grossly intact Vital Signs Temp Pulse Resp BP Pulse Ox 99.2 F H 72 16 114/72 96 04/26/18 07:46 04/26/18 07:46 04/26/18 07:46 04/26/18 07:46 04/26/18 07:46 Oxygen Delivery Method Room Air Weight: 150 lb 9.211 oz Body Mass Index (BMI) 26.6 Intake and Output for Last 24 Hours 04/24/18 04/25/18 04/26/18 23:59 23:59 23:59 Intake Total 2508 / 2508 1721 / 1721 1171 / 1171 Output Total 441 / 441 Balance 2508 / 2508 1280 / 1280 1171 / 1171 Microbiology Past 72 Hours 04/23/18 12:35 C. difficile DNA Amplification - Final Stool Laboratory Tests Past 24 Hrs 04/26/18 04/26/18 05:10 05:10 WBC 4.1 L RBC 3.67 L Hgb 12.0 Hct 35.1 L MCV 95.6 MCH 32.7 H MCHC 34.2 RDW 13.0 RDW Differential 43.5 Plt Count 204 MPV 10.3 Immature Gran % (Auto) 0.000 Neut % (Auto) 51.3 Lymph % (Auto) 31.7 [place] % (Auto) 14.1 H Eos % (Auto) 2.2 Baso % (Auto) 0.7 Absolute Neuts (auto) 2.1 Absolute Lymphs (auto) 1.30 Total Counted Not Reportable Sodium 142 Potassium 3.6 Chloride 108 H Carbon Dioxide 25.0 Anion Gap 9 BUN 3 L Creatinine 0.65 Estim Creat Clear Calc 88.51 Est GFR (MDRD) Af Amer 125 Est GFR (MDRD) Non-Af 103 BUN/Creatinine Ratio 4.6 L Glucose 115 H Calcium 8.6 Total Bilirubin 0.40 AST 13 L ALT 20 Alkaline Phosphatase 85 Total Protein 5.8 L Albumin 2.4 L Globulin 3.4 Albumin/Globulin Ratio 0.7 L Lipase 545 H Medical Necessity - Tobacco Use Smoking Status: Current every day smoker Tobacco Use: Cigarettes Assessment/Plan All Active Problems (Last Reviewed 04/24/18 @ 15:43 by Samantha Wolfe PA-C) Chronic diarrhea (Acute) Pancreatitis, acute (Acute) Infected dental caries (Acute) 47-year-old female with pancreatitis, biliary dyskinesia HIDA scan ejection fraction of 21%, lower abdominal pain 1. Discussed with patient plan to do a laparoscopic cholecystectomy with cholangiograms and possible open due to her biliary dyskinesia. Discussed the anatomy as well as the procedure with the patient. Discussed with patient the risk including but not limited to bleeding, infection, bile leak requiring ERCP, retained sludge or stone in the bile duct also requiring ERCP, risk of injury to bile ducts or other organs including small bowel may require an open surgery or additional surgeries in the future, and anesthesia. Patient had no further questions at this time. Did discuss with patient that her lower abdominal pain would likely not improve as this is likely not due to her gallbladder. And did recommend her to continue on PPIs as she did have mild gastritis on her EGD done yesterday. Stephenie Hinson M.D. Pager: [phone] [facility] [address] [place] [address], [address] [place] [address] Office: [phone]
--- NOTE | 2018-04-26 09:00 | RAD_ITS ---
STUDY: INTRAOPERATIVE CHOLANGIOGRAM. REASON FOR EXAM: Female, 47 years old. Laparoscopic cholecystectomy. FLUOROSCOPY TIME (if supplied): (0:15) minutes/seconds. One image was submitted. TECHNIQUE: An intraoperative cholangiogram was performed by the surgeon. Imaging was submitted. COMPARISON: None. FINDINGS: The visualized intrahepatic biliary ducts are unremarkable. The common bile duct is unremarkable. There is free flow of contrast into the duodenum. RAD/Cholangiogram/ O R,Initial IMPRESSION: Unremarkable intraoperative cholangiogram. Electronically Signed: Dany Huertas MD at 15:04 EDT Tel [phone], Service support ,
--- NOTE | 2018-04-26 09:17 | NURSING ---
PATIENT LEFT UNIT TO SURGERY
[2018-04-26] MEDS: Ciprofloxacin 400 MG/200 ML BAG 200 MG IV (09:25)
--- NOTE | 2018-04-26 09:52 | EKG12_ITS ---
Test Reason : PRE-OP Blood Pressure : / mmHG Vent. Rate : 075 BPM Atrial Rate : 075 BPM P-R Int : 140 ms QRS Dur : 080 ms QT Int : 372 ms P-R-T Axes : 028 038 029 degrees QTc Int : 415 ms Normal sinus rhythm Normal ECG Confirmed by Meeta Ballesteros ([id number]), acquisition editor BEKAH CANTU ([id number]) on 04/29/2018 3:39:05 PM Referred By: GEORGINA Confirmed By:Meeta Ballesteros
[2018-04-26] MEDS: Bupivacaine Mpf 0.5% 30 ML VIAL (09:56)
--- NOTE | 2018-04-26 11:33 | PCM.OPRPT ---
Report of Operation Date of Procedure: 04/25/18 Pre-Operative Diagnosis: Biliary dyskinesia Post-Operative Diagnosis: Same Surgery/Procedure Performed:: Laparoscopic cholecystectomy with cholangiograms conference organizer: none conference organizer: Scarlet Magana Type of Anesthesia:: General/Supplemental Anesthesiologist: Robbie Chavez Specimen's removed: Gallbladder Estimated Blood Loss (mL): <10cc Fluids Replaced: 1 L Description of Procedure: Indications this is a [] year-old [] who developed abdominal pain/nausea/vomiting and on workup was found to have cholelithiasis, acute pancreatitis with a normal common bile duct. Laparoscopic cholecystectomy was elected. Description procedure: The patient was placed on operating table in supine position. General Anesthesia was induced. A timeout was completed verifying correct patient, procedure, site, position, social, and special equipment prior to beginning procedure. An orogastric tube was placed. The abdomen was prepped and draped in usual sterile fashion. An incision was made in the natural skin line above the umbilicus. The fascia was elevated and incised. The peritoneum was elevated and incised. Entry into the peritoneum was confirmed visually and no bowel was noted in the vicinity of the incision. Grajeda trocar was placed. The abdomen was insufflated with carbon dioxide to a pressure of 12-15 mmHg. Patient tolerated insufflation well. The laparoscope was then inserted and abdomen inspected. No injuries from initial trocar placement were noted. Additional trochars were then inserted in the following locations 5 mm trocar in the epigastrium and 2 more 5 mm trochars along the right costal margin. The abdomen was inspected no abnormalities were found. The table is placed in reverse Trendelenburg position with the right side up. The adhesions between the gallbladder and omentum were lysed sharply. The dome of the gallbladder was grasped with atraumatic grasper passed through the lateral port and retracted over the dome of the liver. Infundibulum was then grasped with atraumatic grasper through the midclavicular port and retracted to the right lower quadrant. This maneuver exposed Calot's triangle. The peritoneum overlying the gallbladder infundibulum was then incised and cystic duct and artery identified and circumferentially dissected. Cholangiograms were completed using Isovue 300 and the Ranfac catheter. Incision was made in the upper abdomen with a 15 blade for the Ranfac. Scissors were used to cut the cystic duct to place the Ranfac and then a clip was placed. Cholangiogram was obtained which showed good flow of bile into the duodenum with no filling defect as well as good flow into both bile ducts. The cystic duct and artery were then doubly clipped and divided close to the gallbladder. The gallbladder then dissected from its peritoneal attachments by electrocautery. Hemostasis was checked and the gallbladder and contained stones were removed using the endoscopic retrieval bag through the umbilical port. The gallbladder is passed off table as specimen. The gallbladder fossa was copiously irrigated with saline and hemostasis obtained. There is no evidence of bleeding from the gallbladder fossa or cystic artery leakage of bile from the cystic duct stump. Secondary trochars removed under direct vision. No bleeding was noted the trocar sites. The laparoscope was withdrawn and umbilical trocar removed. The abdomen was allowed to collapse. The fascia of the 12 mm trocar was closed with a [id number] 0 Vicryl suture. The skin was closed with sutures of 4-0 Monocryl and Steri-Strips. The orogastric tube was removed and the patient was extubated. The patient tolerated procedure well and was taken to the postanesthesia care unit in stable condition. - Complications None
--- NOTE | 2018-04-26 11:36 | OP.PCM_ITS ---
Report of Operation Date of Procedure: 04/25/18 Pre-Operative Diagnosis: Biliary dyskinesia Post-Operative Diagnosis: Same Surgery/Procedure Performed:: Laparoscopic cholecystectomy with cholangiograms manager process excellence: none manager process excellence: Scarlet Magana Type of Anesthesia:: General/Supplemental Anesthesiologist: Robbie Chavez Specimen's removed: Gallbladder Estimated Blood Loss (mL): <10cc Fluids Replaced: 1 L Description of Procedure: Indications this is a [] year-old [] who developed abdominal pain/nausea/vomiting and on workup was found to have cholelithiasis, acute pancreatitis with a normal common bile duct. Laparoscopic cholecystectomy was elected. Description procedure: The patient was placed on operating table in supine position. General Anesthesia was induced. A timeout was completed verifying correct patient, procedure, site, position, social, and special equipment prior to beginning procedure. An orogastric tube was placed. The abdomen was prepped and draped in usual sterile fashion. An incision was made in the natural skin line above the umbilicus. The fascia was elevated and incised. The peritoneum was elevated and incised. Entry into the peritoneum was confirmed visually and no bowel was noted in the vicinity of the incision. Grajeda trocar was placed. The abdomen was insufflated with carbon dioxide to a pressure of 12-15 mmHg. Patient tolerated insufflation well. The laparoscope was then inserted and abdomen inspected. No injuries from initial trocar placement were noted. Additional trochars were then inserted in the following locations 5 mm trocar in the epigastrium and 2 more 5 mm trochars along the right costal margin. The abdomen was inspected no abnormalities were found. The table is placed in reverse Trendelenburg position with the right side up. The adhesions between the gallbladder and omentum were lysed sharply. The dome of the gallbladder was grasped with atraumatic grasper passed through the lateral port and retracted over the dome of the liver. Infundibulum was then grasped with atraumatic grasper through the midclavicular port and retracted to the right lower quadrant. This maneuver exposed Calot's triangle. The peritoneum overlying the gallbladder infundibulum was then incised and cy stic duct and artery identified and circumferentially dissected. Cholangiograms were completed using Isovue 300 and the Ranfac catheter. Incision was made in the upper abdomen with a 15 blade for the Ranfac. Scissors were used to cut the cystic duct to place the Ranfac and then a clip was placed. Cholangiogram was obtained which showed good flow of bile into the duodenum with no filling defect as well as good flow into both bile ducts. The cystic duct and artery were then doubly clipped and divided close to the gallbladder. The gallbladder then dissected from its peritoneal attachments by electrocautery. Hemostasis was checked and the gallbladder and contained stones were removed using the endoscopic retrieval bag through the umbilical port. The gallbladder is passed off table as specimen. The gallbladder fossa was copiously irrigated with saline and hemostasis obtained. There is no evidence of bleeding from the gallbladder fossa or cystic artery leakage of bile from the cystic duct stump. Secondary trochars removed under direct vision. No bleeding was noted the trocar sites. The laparoscope was withdrawn and umbilical trocar removed. The abdomen was allowed to collapse. The fascia of the 12 mm trocar was closed with a [id number] 0 Vicryl suture. The skin was closed with sutures of 4-0 Monocryl and Steri-Strips. The orogastric tube was removed and the patient was extubated. The patient tolerated procedure well and was taken to the postanesthesia care unit in stable condition. - Complications None
--- NOTE | 2018-04-26 11:51 | PCM.PN.HOSP ---
Patient Problems: Active and Suspected Problems (Last Reviewed 04/24/18 @ 15:43 by Samantha Wolfe PA-C) Chronic diarrhea (Acute) Pancreatitis, acute (Acute) Subjective: Patient had HIDA scan reported as 21%. It raises differential diagnosis of biliary dyskinesia or sphincter of Oddi dysfunction or structural disorder like acalculus cholecystitis Patient is to complain of unremitting severe pain, predominantly in upper abdomen than lower abdomen. Discussed with Dr. Arroyo and he said Dr. Hinson will do lap walter. Findings of HIDA scan was informed to me last evening by the nurse and then relayed to the patient. Today I discussed the findings in detail with the patient. Vitals/I&O's: Vital Signs Temp Pulse Resp BP Pulse Ox 99.2 F H 72 16 114/72 96 04/26/18 07:46 04/26/18 07:46 04/26/18 07:46 04/26/18 07:46 04/26/18 07:46 Oxygen Delivery Method Room Air Weight: 150 lb 9.211 oz Body Mass Index (BMI) 26.6 Intake and Output for Last 24 Hours 04/24/18 04/25/18 04/26/18 23:59 23:59 23:59 Intake Total 2508 / 2508 1721 / 1721 1171 / 1171 Output Total 441 / 441 Balance 2508 / 2508 1280 / 1280 1171 / 1171 General: Alert, Oriented x3, Cooperative HEENT: Atraumatic, PERRLA, EOMI, Normocephalic Neck: Supple, No JVD, Negative Carotid Bruits Lungs: Clear to auscultation, Normal air movement, No rhonchi, No wheeze Cardiovascular: Regular rate, Regular Rhythm, Normal S1, Normal S2, No murmurs Abdomen: Bowel Sounds Present, Soft, Non-Distended, Tender - Tenderness present in epigastrium, right and left upper quadrant. Extremities: No edema, Capillary Refill Less than 3 Seconds Skin: No rashes, No breakdown Musculoskeletal: No Tenderness to Palpation of Joints or Extremities Neurological: Cranial nerves II-XII grossly intact Psych/Mental Status: Normal Affect, Appropriate Microbiology Past 72 Hours 04/23/18 12:35 Stool C. difficile DNA Amplification - Final Laboratory Results 04/26/18 05:10: WBC 4.1 L, RBC 3.67 L, Hgb 12.0, Hct 35.1 L, MCV 95.6, MCH 32.7 H, MCHC 34.2, RDW 13.0, RDW Differential 43.5, Plt Count 204, MPV 10.3, Immature Gran % (Auto) 0.000, Neut % (Auto) 51.3, Lymph % (Auto) 31.7, [place] % (Auto) 14.1 H, Eos % (Auto) 2.2, Baso % (Auto) 0.7, Absolute Neuts (auto) 2.1, Absolute Lymphs (auto) 1.30, Total Counted Not Reportable 04/26/18 05:10: Sodium 142, Potassium 3.6, Chloride 108 H, Carbon Dioxide 25.0, Anion Gap 9, BUN 3 L, Creatinine 0.65, Estim Creat Clear Calc 88.51, Est GFR (MDRD) Af Amer 125, Est GFR (MDRD) Non-Af 103, BUN/Creatinine Ratio 4.6 L, Glucose 115 H, Calcium 8.6, Total Bilirubin 0.40, AST 13 L, ALT 20, Alkaline Phosphatase 85, Total Protein 5.8 L, Albumin 2.4 L, Globulin 3.4, Albumin/Globulin Ratio 0.7 L, Lipase 545 H Current Medications Acetaminophen (Tylenol) 650 mg PO Q6H PRN PRN PRN Reason: Mild Pain (scale 0-3)/T>100.7 Alprazolam (Xanax) 0.5 mg PO TID PRN PRN PRN Reason: ANXIETY Last Admin: 04/26/18 07:54 Dose: 0.5 mg Dicyclomine HCl (Bentyl) 10 mg PO 4X/DAY PRN PRN Reason: abdominal pain Last Admin: 04/26/18 03:16 Dose: 10 mg Enoxaparin Sodium (Lovenox) 40 mg SC DAILY@1000 TIMUR Last Admin: 04/25/18 10:59 Dose: Not Given Potassium Chloride/Dextrose/Sod Cl (Kcl 20meq In D5.45ns 1000ml) 1,000 mls @ 100 mls/hr IV .Q10H TIMUR Last Admin: 04/26/18 00:46 Dose: 100 mls/hr Pantoprazole Sodium 40 mg/ (Sodium Chloride) 110 mls @ 330 mls/hr IV Q24 TIMUR Last Admin: 04/26/18 09:22 Dose: 330 mls/hr Lisinopril (Zestril) 10 mg PO DAILY TIMUR Lorazepam (Ativan) 0.5 mg IV Q6H PRN PRN PRN Reason: ANXIETY Morphine Sulfate () 4 mg IV Q3H PRN PRN PRN Reason: SEVERE PAIN (6-10/10) Last Admin: 04/26/18 07:55 Dose: 4 mg Morphine Sulfate () 2 mg IV Q3H PRN PRN PRN Reason: MOD-SEVERE PAIN (4-10/10) Ondansetron HCl (Zofran) 4 mg IV Q6H PRN PRN PRN Reason: NAUSEA Last Admin: 04/26/18 07:55 Dose: 4 mg Oxycodone HCl (Oxyir) 5 - 10 mg PO Q4H PRN PRN PRN Reason: SEVERE PAIN (6-10/10) Promethazine HCl (Phenergan) 12.5 mg IV Q6H PRN PRN PRN Reason: NAUSEA/VOMITING Last Admin: 04/26/18 03:10 Dose: 12.5 mg Sodium Chloride () 5 - 30 ml IV UD PRN PRN Reason: SALINE FLUSH Last Admin: 04/25/18 18:37 Dose: 10 ml Medical Necessity - Tobacco Use Smoking Status: Current every day smoker Tobacco Use: Cigarettes Assessment/Plan All Active Problems (Last Reviewed 04/24/18 @ 15:43 by Samantha Wolfe PA-C) Chronic diarrhea (Acute) Pancreatitis, acute (Acute) Infected dental caries (Acute) The patient is a 47 year old F with history of chronic cervical disc degeneration/herniation status post cervical spine surgery, possible PUD/GERD on PPI recently came to ER with abdominal pain, nausea and vomiting and diarrhea on and off for last 6 weeks. This is her third ER visit since 04/11/2015. Earlier patient was seen by Dr. Turpin in office and had [] Earlier CT abdomen and ultrasound the liver which reported as normal. Patient describes abdominal pain and cramps with waxing and waning in nature, sometimes very severe colicky nature but is still some pain remains after episode is over. Patient has nausea, vomiting and dry heaving, cleansed with a 15-20 times per day intermittently for last 6 weeks along with diarrhea which is loose, watery without blood. Denies GI bleed. Patient has appointment with Dr. Bolivar 05/22. In ED significant abnormal lab was lipase 1139. On previous occasions it was normal. Mild hypokalemia, K3.4. Mild leukocytosis 12,000. 1. Possible acute pancreatitis; exact etiology unclear but found abnormal HIDA scan with EF 21%, most probably secondary to biliary dyskinesia: Patient has lipase 1139 which is 3 times upper limit. Lipase is improving. Repeat right upper quadrant reported as normal, even pancreas reported normal. MRCP normal. Patient had EGD on 04/25 and reported as minimal gastritis with no signs of ulcer. In previous CT scan pancreas was reported normal. CBD measures 2 mm. Normal external gallbladder with GB wall 2 mm in recent right upper quadrant sonogram and 04/17. But at that time, lipase was normal at 147. Patient has accepted drinking alcohol on weekends but denies heavy drinking. The findings of HIDA scan discussed with the patient. She agrees for lap cholecystectomy. Subsequently, she had lap walter done with intraoperative cholangiogram which were good, therefore exact etiology of acute pancreatitis is still unclear. Discussed with Dr. Hinson and patient wants to go home today. Patient had hypoglycemia today: IV fluids changed to D5 half NS. Resolved. Patient can be started on clear liquid diet and shows she is awake and out of anesthesia effect. 2. Acute abdominal pain, with nausea, vomiting and diarrhea; etiology unclear possible irritable bowel syndrome: Enteric bacteriology panel and stool lactoferrin are negative. I think given patient pain is subsided will need upper and lower GI endoscopy. Stool for C. difficile negative. 3. Hypertension: Blood pressure was lower in the morning 84/50 and 102/50. Lisinopril decreased to 10 mg daily. Other chronic comorbidities include cervical disc degeneration/discitis status post surgery, GERD/possible PUD, hypertension, home medication reconciliation done. Different etiologies of abdominal pain, pancreatitis, plan of management was discussed with the patient and her father. DVT prophylaxis: On enoxaparin. Microbiology Past 72 Hours 04/23/18 12:35 Stool C. difficile DNA Amplification - Final Laboratory Results 04/26/18 05:10: WBC 4.1 L, RBC 3.67 L, Hgb 12.0, Hct 35.1 L, MCV 95.6, MCH 32.7 H, MCHC 34.2, RDW 13.0, RDW Differential 43.5, Plt Count 204, MPV 10.3, Immature Gran % (Auto) 0.000, Neut % (Auto) 51.3, Lymph % (Auto) 31.7, [place] % (Auto) 14.1 H, Eos % (Auto) 2.2, Baso % (Auto) 0.7, Absolute Neuts (auto) 2.1, Absolute Lymphs (auto) 1.30, Total Counted Not Reportable 04/26/18 05:10: Sodium 142, Potassium 3.6, Chloride 108 H, Carbon Dioxide 25.0, Anion Gap 9, BUN 3 L, Creatinine 0.65, Estim Creat Clear Calc 88.51, Est GFR (MDRD) Af Amer 125, Est GFR (MDRD) Non-Af 103, BUN/Creatinine Ratio 4.6 L, Glucose 115 H, Calcium 8.6, Total Bilirubin 0.40, AST 13 L, ALT 20, Alkaline Phosphatase 85, Total Protein 5.8 L, Albumin 2.4 L, Globulin 3.4, Albumin/Globulin Ratio 0.7 L, Lipase 545 H Code Visit Inpatient E&M: 60118 Subs Hosp L3
[2018-04-26] MEDS: Lisinopril 10 MG Tablet PO (14:28)
--- NOTE | 2018-04-26 15:11 | DCINST_ITS ---
Discharge Diet: Light diet - advance as tolerated Discharge Activity: May not drive while taking narcotic pain medications. May shower in (days): 1 Lifting Restrictions: No lifting greater than 20 pounds for 4 weeks Call your doctor if your incision/area has: Continuous Slow Oozing, Sudden Increased Bleeding, Increased Pain/ Swelling, Increased Redness, Foul Smelling Discharge, Swelling at the incision site Call your doctor if you observe: Fever of 101 or Higher Remove Dressing in (days):: 1 Allergies/Adverse Reactions: Allergies cyclobenzaprine HCl [From Flexeril] Adverse Reaction (Verified 04/23/18 06:04) UNABLE TO FUNCTION ON MED hydromorphone HCl [From Dilaudid] Adverse Reaction (Verified 04/23/18 06:04) Nausea Penicillins Adverse Reaction (Verified 04/23/18 06:04) YEAST INFECTION Medications to take at Discharge Hydrocodone Bitart/Apap 5-325 [[place] 5MG-325MG] 1 tab PO Q6H PRN PRN 3 Days #10 tab 04/11/18 Metoclopramide [Reglan] 10 mg PO 4X/DAY PRN #20 tab 04/11/18 Omeprazole [Prilosec] 20 mg PO DAILY #30 cap 04/11/18 Ondansetron [Zofran Odt] 4 mg PO Q8H PRN PRN #10 tab 04/11/18 Potassium Chloride [K-Dur] 20 meq PO BID #8 tab 04/11/18 Dicyclomine HCl [Bentyl] 10 mg PO 4X/DAY PRN #12 cap 04/17/18 lisinopril 20 mg tablet 20 mg PO BID tab 04/17/18 Omeprazole 40 mg PO DAILY #30 capsule. 04/26/18 Oxycodone HCl/Acetaminophen [Percocet 5/325] 1 - 2 tablet PO Q6H PRN PRN 4 Days #25 tablet 04/26/18 The following prescriptions were given: Oxycodone HCl/Acetaminophen [Percocet 5/325] 1 - 2 tablet PO Q6H PRN PRN 4 Days #25 tablet PRN Reason: Pain Omeprazole 40 mg PO DAILY #30 capsule. Primary Care Physician: Care Physician,No Primary [Primary Care Provider] - Test Results: Test results from this visit will be discussed in further detail at your follow- up appointment, if applicable. Please Follow Up With: Stephenie Hinson MD When: Call the office for a follow-up appointment in 2 weeks Proposed Discharge Date: 04/27/18
[2018-04-26] MEDS: Morphine 2 MG/ML Syringe IV (17:43)
[2018-04-26] MEDS: oxyCODONE 5 MG Tablet PO (21:04)
--- NOTE | 2018-04-26 21:49 | NURSING ---
Patient up walking in hallway, and is visiting with the patient in room 312.
[2018-04-26 22:40] LABS: Bedside Glucose 117 mg/dL (70-110)
[2018-04-27] MEDS: Ondansetron 4 MG/2 ML Vial IV (02:59)
[2018-04-27] MEDS: oxyCODONE 5 MG Tablet PO ×3 (02:59→11:39)
[2018-04-27 03:00] VITALS: BP 117/76; PULSE 85; RESP 18; TEMP 36.5; O2SAT 97
--- NOTE | 2018-04-27 05:58 | PCM.PN.SRG ---
Patient Problems: Active and Suspected Problems (Last Reviewed 04/24/18 @ 15:43 by Samantha Wolfe PA-C) Chronic diarrhea (Acute) Pancreatitis, acute (Acute) Subjective: Patient does complain of abdominal soreness but mostly from coughing last night, she was able to eat cookies and milk/half a bagel with cream cheese without any issues. She has been getting Zofran preemptively with her Percocet but she has not been having any nausea or vomiting. Denies flatus since surgery - Physical Exam General: Alert, Oriented x3, Cooperative, No apparent distress Abdomen: Soft, Distended - Mild to moderate, Tender - Diffuse mainly at the umbilicus incision, incision dressed Extremities: No edema Vital Signs Temp Pulse Resp BP Pulse Ox 97.7 F L 85 18 117/76 97 04/27/18 03:00 04/27/18 03:00 04/27/18 03:00 04/27/18 03:00 04/27/18 03:00 Oxygen Flow Rate (L/min) 2 Oxygen Delivery Method Room Air Weight: 150 lb 9.211 oz Body Mass Index (BMI) 26.6 Intake and Output for Last 24 Hours 04/25/18 04/26/18 04/27/18 23:59 23:59 23:59 Intake Total 1721 / 1721 5942 / 5942 725 / 725 Output Total 441 / 441 Balance 1280 / 1280 5942 / 5942 725 / 725 Laboratory Tests Past 24 Hrs 04/26/18 04/26/18 05:10 05:10 WBC 4.1 L RBC 3.67 L Hgb 12.0 Hct 35.1 L MCV 95.6 MCH 32.7 H MCHC 34.2 RDW 13.0 RDW Differential 43.5 Plt Count 204 MPV 10.3 Immature Gran % (Auto) 0.000 Neut % (Auto) 51.3 Lymph % (Auto) 31.7 Yell % (Auto) 14.1 H Eos % (Auto) 2.2 Baso % (Auto) 0.7 Absolute Neuts (auto) 2.1 Absolute Lymphs (auto) 1.30 Total Counted Not Reportable Sodium 142 Potassium 3.6 Chloride 108 H Carbon Dioxide 25.0 Anion Gap 9 BUN 3 L Creatinine 0.65 Estim Creat Clear Calc 88.51 Est GFR (MDRD) Af Amer 125 Est GFR (MDRD) Non-Af 103 BUN/Creatinine Ratio 4.6 L Glucose 115 H Calcium 8.6 Total Bilirubin 0.40 AST 13 L ALT 20 Alkaline Phosphatase 85 Total Protein 5.8 L Albumin 2.4 L Globulin 3.4 Albumin/Globulin Ratio 0.7 L Lipase 545 H POC Glucose 04/26/18 22:37 POC Glucose 117 H Medical Necessity - Tobacco Use Smoking Status: Current every day smoker Tobacco Use: Cigarettes Assessment/Plan All Active Problems (Last Reviewed 04/24/18 @ 15:43 by Samantha Wolfe PA-C) Chronic diarrhea (Acute) Pancreatitis, acute (Acute) Infected dental caries (Acute) 47-year-old female postop day 1 status post laparoscopic cholecystectomy for biliary dyskinesia. 1. Patient is tolerating regular diet without nausea or vomiting. She does state her abdomen is sore but has been coughing last night. She has been up walking the halls. Patient has been getting Zofran only preemptively with her Percocet but she has not had any nausea or vomiting. We will try to give Percocet without the Zofran. If patient continues to tolerate a diet, ambulating, pain controlled with p.o. medications and vital signs remained stable okay to DC from surgery standpoint. And follow-up in 2 weeks in office Stephenie Hinson M.D. Pager: [phone] [facility] [address] [place] [address], [facility], [address] [place] [address] Office: [phone]
[2018-04-27] MEDS: ALPRAZolam 0.5 MG Tablet PO (05:59)
[2018-04-27 08:05] VITALS: BP 103/67; PULSE 86; RESP 16; TEMP 37.2; O2SAT 97
[2018-04-27] MEDS: Lisinopril 10 MG Tablet PO (09:20)
[2018-04-27] MEDS: Docusate Sodium 100 MG Capsule PO (09:21)
--- NOTE | 2018-04-27 10:58 | DCINST_ITS ---
- Discharge Diagnoses Current Active Problems: Current Active and Chronic Problems (Last Reviewed 04/24/18 @ 15:43 by Samantha Wolfe PA-C) Peptic ulcer disease (Chronic) GERD (gastroesophageal reflux disease) (Chronic) Cervical disc disorder (Chronic) Abdominal pain (Chronic) Chronic diarrhea (Acute) Hypertension (Chronic) Pancreatitis, acute (Acute) You will use the following diet at home:: Clear liquid - advance as tolerated Your food should be the consistency of: Regular Your liquids should be the consistency of: Regular/Thin Discharge Activity: Return to Normal Activity, May not drive while taking narcotic pain medications. May shower in (days): 1 Weight Bearing Status: Weight bearing as tolerated Call your doctor if your incision/area has: Continuous Slow Oozing, Sudden Increased Bleeding, Increased Pain/ Swelling, Increased Redness, Foul Smelling Discharge, Swelling at the incision site Call your doctor if you observe: Fever of 101 or Higher Remove Dressing in (days):: 1 Allergies/Adverse Reactions: Allergies cyclobenzaprine HCl [From Flexeril] Adverse Reaction (Verified 04/23/18 06:04) UNABLE TO FUNCTION ON MED hydromorphone HCl [From Dilaudid] Adverse Reaction (Verified 04/23/18 06:04) Nausea Penicillins Adverse Reaction (Verified 04/23/18 06:04) YEAST INFECTION Medications to take at Discharge Metoclopramide [Reglan] 10 mg PO 4X/DAY PRN #20 tab 04/11/18 Omeprazole [Prilosec] 20 mg PO DAILY #30 cap 04/11/18 Ondansetron [Zofran Odt] 4 mg PO Q8H PRN PRN #10 tab 04/11/18 Potassium Chloride [K-Dur] 20 meq PO BID #8 tab 04/11/18 Dicyclomine HCl [Bentyl] 10 mg PO 4X/DAY PRN #12 cap 04/17/18 lisinopril 20 mg tablet 20 mg PO BID tab 04/17/18 Omeprazole 40 mg PO DAILY #30 capsule. 04/26/18 Oxycodone HCl/Acetaminophen [Percocet 5/325] 1 - 2 tablet PO Q6H PRN PRN 4 Days #25 tablet 04/26/18 The following prescriptions were given: Oxycodone HCl/Acetaminophen [Percocet 5/325] 1 - 2 tablet PO Q6H PRN PRN 4 Days #25 tablet PRN Reason: Pain Omeprazole 40 mg PO DAILY #30 capsule. Primary Care Physician: Care Physician,No Primary [Primary Care Provider] - Please follow up with your Primary Care Physician in: please follow up with your PCP in 1 week Test Results: Test results from this visit will be discussed in further detail at your follow- up appointment, if applicable. Please Follow Up With: Stephenie Hinson MD When: Call the office for a follow-up appointment in 2 weeks Proposed Discharge Date: 04/27/18
--- NOTE | 2018-04-27 10:58 | PCM.DC.SUM ---
Discharge Date and Diagnosis Date of Admission: 04/23/18 Date of Discharge: 04/27/18 - Primary Discharge Diagnosis Active and Suspected Problems (Last Reviewed 04/24/18 @ 15:43 by Samantha Wolfe PA-C) Chronic diarrhea (Acute) Pancreatitis, acute (Acute) - Secondary Discharge Diagnosis Chronic Problems (Last Reviewed 04/24/18 @ 15:43 by Samantha Wolfe PA-C) Peptic ulcer disease (Chronic) GERD (gastroesophageal reflux disease) (Chronic) Cervical disc disorder (Chronic) Abdominal pain (Chronic) Hypertension (Chronic) Hospital Course and Treatment Imaging Results: Diagnostic Data Abdomen Ultrasound 04/23/18 08:42 IMPRESSION: Normal right upper quadrant ultrasound examination. Electronically Signed: Dany Huertas MD at 13:13 EDT Tel [phone], Service support , MRCP 04/24/18 13:03 IMPRESSION: Normal MR Cholangiopancreatography (MRCP). Electronically Signed: Johan Ching MD at 19:34 EDT , Service support , ADDENDUM: 04/25/18 1647 IMPRESSION: Normal MR Cholangiopancreatography (MRCP). Electronically Signed: Johan Ching MD at 16:40 EDT , Service support , Hepatobiliary Scan Nuclear Medicine 04/25/18 07:42 IMPRESSION: 1. ABNORMAL 99m Tc Mebrofenin hepatobiliary imaging examination with fatty meal ingestion. A. A gallbladder ejection fraction calculated to be less than 30% following the administration of an ingested fatty meal is consistent with the presence of functional hepatobiliary disease (gallbladder and/or sphincter of Oddi dyskinesia) and/or organic hepatobiliary disease (chronic acalculous cholecystitis and/or cystic duct syndrome) in patients with intermediate to high pretest probabilities of hepatobiliary illness. (Maco and Ildefonso, J Nucl Med 43: 1603, 2002). B. Duodenal-gastric reflux is defined following fatty meal consumption. Electronically Signed: Malcolm Hodge DO at 16:37 EDT Tel , Service support , Cholangiogram 04/26/18 09:00 IMPRESSION: Unremarkable intraoperative cholangiogram. Electronically Signed: Dany Huertas MD at 15:04 EDT Tel [phone], Service support , Laboratory Tests 04/23/18 04/23/18 04/24/18 06:20 06:20 05:30 WBC 12.1 H 5.8 RBC 4.77 3.71 L Hgb 15.7 H 12.2 Hct 44.1 35.8 L MCV 92.5 96.5 MCH 32.9 H 32.9 H MCHC 35.6 34.1 RDW 13.1 13.2 RDW Differential 43.0 43.9 Plt Count 332 216 MPV 10.0 10.4 Immature Gran % (Auto) 0.200 0.200 Neut % (Auto) 71.8 H 48.9 Lymph % (Auto) 19.9 37.3 [place] % (Auto) 6.2 10.9 H Eos % (Auto) 1.7 2.4 Baso % (Auto) 0.2 0.3 Absolute Neuts (auto) 8.7 H 2.8 Absolute Lymphs (auto) 2.41 2.16 Total Counted Not Reportable Not Reportable Sodium 138 Potassium 3.4 L Chloride 105 Carbon Dioxide 23.0 Anion Gap 10 BUN 7 Creatinine 0.81 Estim Creat Clear Calc 71.03 Est GFR (MDRD) Af Amer 97 Est GFR (MDRD) Non-Af 80 BUN/Creatinine Ratio 8.6 L Glucose 130 H Calcium 9.5 Total Bilirubin 0.50 Direct Bilirubin 0.14 AST 16 ALT 30 Alkaline Phosphatase 129 H Total Protein 7.7 Albumin 3.6 Globulin 4.1 Albumin/Globulin Ratio Lipase 1139 H POC Glucose 04/24/18 04/25/18 04/25/18 05:30 05:25 05:25 WBC 5.4 RBC 3.65 L Hgb 11.8 L Hct 35.4 L MCV 97.0 MCH 32.3 H MCHC 33.3 RDW 13.1 RDW Differential 45.0 H Plt Count 218 MPV 10.3 Immature Gran % (Auto) 0.200 Neut % (Auto) 59.0 Lymph % (Auto) 27.4 [place] % (Auto) 10.4 H Eos % (Auto) 2.4 Baso % (Auto) 0.6 Absolute Neuts (auto) 3.2 Absolute Lymphs (auto) 1.48 Total Counted Not Reportable Sodium 143 141 Potassium 3.5 3.7 Chloride 111 H 110 H Carbon Dioxide 25.0 17.0 L Anion Gap 7 14 BUN 6 L 4 L Creatinine 0.58 0.52 L Estim Creat Clear Calc 99.19 110.64 Est GFR (MDRD) Af Amer 142 162 Est GFR (MDRD) Non-Af 117 134 BUN/Creatinine Ratio 10.3 7.7 L Glucose 77 43 L* Calcium 8.3 L 8.1 L Total Bilirubin 0.40 Direct Bilirubin AST 12 L ALT 17 Alkaline Phosphatase 89 Total Protein 5.8 L Albumin 2.5 L Globulin 3.3 Albumin/Globulin Ratio 0.8 L Lipase 985 H 771 H POC Glucose 04/25/18 04/26/18 04/26/18 08:22 05:10 05:10 WBC 4.1 L RBC 3.67 L Hgb 12.0 Hct 35.1 L MCV 95.6 MCH 32.7 H MCHC 34.2 RDW 13.0 RDW Differential 43.5 Plt Count 204 MPV 10.3 Immature Gran % (Auto) 0.000 Neut % (Auto) 51.3 Lymph % (Auto) 31.7 [place] % (Auto) 14.1 H Eos % (Auto) 2.2 Baso % (Auto) 0.7 Absolute Neuts (auto) 2.1 Absolute Lymphs (auto) 1.30 Total Counted Not Reportable Sodium 142 Potassium 3.6 Chloride 108 H Carbon Dioxide 25.0 Anion Gap 9 BUN 3 L Creatinine 0.65 Estim Creat Clear Calc 88.51 Est GFR (MDRD) Af Amer 125 Est GFR (MDRD) Non-Af 103 BUN/Creatinine Ratio 4.6 L Glucose 115 H Calcium 8.6 Total Bilirubin 0.40 Direct Bilirubin AST 13 L ALT 20 Alkaline Phosphatase 85 Total Protein 5.8 L Albumin 2.4 L Globulin 3.4 Albumin/Globulin Ratio 0.7 L Lipase 545 H POC Glucose 130 H 04/26/18 22:37 WBC RBC Hgb Hct MCV MCH MCHC RDW RDW Differential Plt Count MPV Immature Gran % (Auto) Neut % (Auto) Lymph % (Auto) [place] % (Auto) Eos % (Auto) Baso % (Auto) Absolute Neuts (auto) Absolute Lymphs (auto) Total Counted Sodium Potassium Chloride Carbon Dioxide Anion Gap BUN Creatinine Estim Creat Clear Calc Est GFR (MDRD) Af Amer Est GFR (MDRD) Non-Af BUN/Creatinine Ratio Glucose Calcium Total Bilirubin Direct Bilirubin AST ALT Alkaline Phosphatase Total Protein Albumin Globulin Albumin/Globulin Ratio Lipase POC Glucose 117 H general surgery- Dr Arroyo Operations: cholecystecomy - laparoscopic, - Procedures: None Summary of Care Provided: The patient is a 47 year old F with a history of chronic cervical disc degeneration/herniation s/p surgery, ?GERD and PUD was admitted via the ED on 04/23/2018 with complaint of abdominal pain, nausea and vomiting as well as diarrhea which has been going on for about 6 weeks prior to admission. She had been seen 3 times in the ER since 04/11/2018. She has seen Dr. Turpin on outpatient basis and had a CT of the abdomen and ultrasound of the liver which was reported as normal. In the ED, she was found to have abdominal elevated lipase of 1139. She was admitted and managed for acute pancreatitis. MRCP done on 04/24/2018 was normal. She had an EGD on 03/25/2018 which showed mild gastritis with no evidence of ulceration. HIDA scan was done which showed gallbladder ejection fraction, related to be less than 30% which was consistent with presence of functional hepatobiliary disease. Had a laparoscopic cholecystectomy on 04/18/2018. He was able to tolerate a diet after laparoscopic cholecystectomy and pain was well controlled with Percocet. She was discharged home on 04/27/2018 with a prescription for Percocet as given by general surgery. She is to follow-up with Dr. Hinson on 04/29/2018 in her office. Patient was seen and examined prior to discharge. She had no complaints and wanted to go home. Pain was well controlled and she denied any fever or chills, any cough or chest pain, shortness of breath any diarrhea vomiting. 12 point review of systems otherwise negative. Labs and vitals reviewed. On examination: Vital Signs Height 5 ft 3 in Weight: 150 lb 9.211 oz Weight in Pounds 150.6 lbs Pulse Ox 97 Temperature 99.0 F Pulse Rate 86 Respiratory Rate 16 Blood Pressure [BP] 131/90 Blood Pressure 103/67 Blood Pressure Position [BP] Semi-Fowlers Blood Pressure Position Semi-Fowlers General: Alert, Oriented x3, Cooperative HEENT: Atraumatic, PERRLA, EOMI, Normocephalic Neck: Supple, No JVD, Negative Carotid Bruits Lungs: Clear to auscultation, Normal air movement, No rhonchi, No wheeze Cardiovascular: Regular rate, Regular Rhythm, Normal S1, Normal S2, No murmurs Abdomen: Bowel Sounds Present, Soft, Non-Distended, clean lap cholecystectomy wound site, with clean dressing. Abdomen minimally tender to touch Extremities: No edema, Capillary Refill Less than 3 Seconds Skin: No rashes, No breakdown Musculoskeletal: No Tenderness to Palpation of Joints or Extremities Neurological: Cranial nerves II-XII grossly intact Psych/Mental Status: Normal Affect, Appropriate,AO x 3 Plan as stated above. She is to follow up with general surgery and her PCP. She was give a script for percocet 1-2 tab q6prn #25 tabs by general surgery and PO omeprazole 40mg daily. Discharge Diet: Light diet - advance as tolerated Discharge Activity: Return to Normal Activity, May not drive while taking narcotic pain medications. May shower in (days): 1 Weight Bearing Status: Weight bearing as tolerated Call your doctor if your incision/area has: Continuous Slow Oozing, Sudden Increased Bleeding, Increased Pain/ Swelling, Increased Redness, Foul Smelling Discharge, Swelling at the incision site Call your doctor if you observe: Fever of 101 or Higher Remove Dressing in (days):: 1 Home Medications: Medications to take at Discharge Metoclopramide [Reglan] 10 mg PO 4X/DAY PRN #20 tab 04/11/18 Omeprazole [Prilosec] 20 mg PO DAILY #30 cap 04/11/18 Ondansetron [Zofran Odt] 4 mg PO Q8H PRN PRN #10 tab 04/11/18 Potassium Chloride [K-Dur] 20 meq PO BID #8 tab 04/11/18 Dicyclomine HCl [Bentyl] 10 mg PO 4X/DAY PRN #12 cap 04/17/18 lisinopril 20 mg tablet 20 mg PO BID tab 04/17/18 Omeprazole 40 mg PO DAILY #30 capsule. 04/26/18 Oxycodone HCl/Acetaminophen [Percocet 5/325] 1 - 2 tablet PO Q6H PRN PRN 4 Days #25 tablet 04/26/18 Following Prescrptions Were Given to Patient: Oxycodone HCl/Acetaminophen [Percocet 5/325] 1 - 2 tablet PO Q6H PRN PRN 4 Days #25 tablet PRN Reason: Pain Omeprazole 40 mg PO DAILY #30 capsule. Primary Care Physician: Care Physician,No Primary [Primary Care Provider] - Please follow up with your Primary Care Physician in: please follow up with your PCP in 1 week Please Follow Up With: Stephenie Hinson MD When: Call the office for a follow-up appointment in 2 weeks Disposition: Home Minutes spent on discharge:: 35 Patient Condition:: Stable Medical Necessity - Tobacco Use Smoking Status: Current every day smoker Tobacco Use: Cigarettes Meaningful Use Info Meaningful Use Diagnoses (Choose all that apply): None applicable Code Visit Inpatient E&M: 53896 Disch Hosp
--- NOTE | 2018-04-29 14:37 | CASEMGMT ---
MAURI HAUSER Follow-Up Discharge Phone Call: JAYME: Isidro STRATA: 3 Discharge Date: 04/27/18 MAURI HAUSER spoke with pt to inquire about how she has been feeling since she was discharged from the hospital. Pt stated, I'm doing okay. 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 She states her spoke with the pharmacist and he instructed for her to take (2) 20 mg Prilosec's to equal the 40 mg and that she has been doing that. Pt states she has been taking the Percocet as needed and denies having any further questions about the medication. Pt states she has made an appt with her PCP, Dr Garza for @ 11:20. Pt states she has not made the follow-up appt w/Dr Hinson yet d/t her instructions stated to make the appt in 2 weeks, so she thought she wasn't supposed to call until 2 weeks to make the appt. Pt instructed that she can make call and make the appt now, but that it should be made for 2 weeks from discharge. Pt stated she will call today after getting off of the phone. Pt denies having any further questions. MAURI HAUSER thanked pt for taking the time to talk to MAURI HAUSER and instructed her to call for any further questions or needs. Yeyo HOROWITZ RN, CM
== END 2018-04-27 12:00 | disposition home or self-care (01) | DRG 419 ==
LOC: ED 06:33 → MS3 07:30
PROVIDERS: Surgery; Admitting Provider Internal Medicine; Emergency Provider Emergency Medicine; Visit Provider Student in an Organized Health Care Education/Training Program
PROC: 0DJ08ZZ Inspection of Upper Intestinal Tract, Via Natural or Artificial Opening Endoscopic (ICD-10-PCS; CPT 43235; principal; 2018-04-25 06:55)
PROC: 0FT44ZZ Resection of Gallbladder, Percutaneous Endoscopic Approach (ICD-10-PCS; CPT 47610; principal; 2018-04-26 07:45)
DX: K85.90 Acute pancreatitis without necrosis or infection, unspecified (principal); K21.9 Gastro-esophageal reflux disease without esophagitis; I10 Essential (primary) hypertension; E87.6 Hypokalemia; I73.00 Raynaud's syndrome without gangrene; F17.210 Nicotine dependence, cigarettes, uncomplicated; K82.8 Other specified diseases of gallbladder; K29.70 Gastritis, unspecified, without bleeding; Z87.11 Personal history of peptic ulcer disease
CPT/HCPCS: 36415; 74181; 74300; 76000; 76705; 78227; 80048; 80053; 80076; 82962; 83690; 85025; 87493; 88304; 88305; 88342; 93005; 99284; 99406; A9537; J7030; J7040; A4216; J0744; J2405

== ENCOUNTER → 2018-05-25 10:37 | Outpatient (CLI) | payer OTHER, SELFPAY ==
--- NOTE | 2018-05-25 10:44 | US_ITS ---
STUDY: ABDOMINAL ULTRASOUND - RIGHT UPPER QUADRANT REASON FOR VISIT: Female, 48 years old. Abdominal pain. Recent cholecystectomy. TECHNIQUE: Ultrasound evaluation of the right upper quadrant was performed with real-time and static heard-scale imaging. TECHNICAL QUALITY: Limited. Examination limited by bowel gas. COMPARISON: 04/23/2018, which was preop. FINDINGS: Liver: The liver measures 14.7 cm. There is normal echogenicity of the liver. The bile ducts are within normal limits. There is hepatic color flow. The direction of portal flow is hepatopetal. There is no demonstrated mass lesion. Gallbladder: The patient is status post cholecystectomy. Common Bile Duct (C.B.D.): The common bile duct measures 3.5 mm. Pancreas: Normal size of the head, body and tail of the pancreas. There is normal echogenicity of the pancreas. There is no demonstrated pancreatic mass or cyst. Right Kidney: Normal size of the right kidney. The right kidney measures 10.4 cm. Normal renal cortex. The right cortex measures 1.5 cm. There is no demonstrated renal mass or cyst. There is no right hydronephrosis. US/Abdomen Limited IMPRESSION: No definite acute abnormality. Electronically Signed: Milton Cleaning MD at 23:58 EDT , Service support ,
== END ==
PROVIDERS: Family Provider Family Medicine; PCP Family Medicine; Referring Provider Internal Medicine Gastroenterology; Visit Provider Internal Medicine Gastroenterology
DX: R10.9 Unspecified abdominal pain (principal); Z90.49 Acquired absence of other specified parts of digestive tract
CPT/HCPCS: 76705

== ENCOUNTER → 2018-06-06 11:20 | Outpatient (CLI) | payer OTHER, SELFPAY | PROVIDERS: Family Provider Family Medicine; PCP Family Medicine; Referring Provider Surgery; Visit Provider Surgery | DX: A04.8 Other specified bacterial intestinal infections (principal) ==

== ENCOUNTER → 2018-07-11 12:07 | Outpatient (CLI) | payer OTHER, SELFPAY ==
[2018-07-11 12:07] VITALS: BMI 30.9
== END ==
PROVIDERS: Family Provider Family Medicine; PCP Family Medicine; Referring Provider Internal Medicine Gastroenterology; Visit Provider Internal Medicine Gastroenterology
DX: R19.7 Diarrhea, unspecified (principal)

== ENCOUNTER → 2018-07-13 09:51 | Outpatient (CLI) | payer OTHER, SELFPAY ==
[2018-07-11 12:07] VITALS: BMI 30.9
[2018-07-17 12:42] LABS: Fats, Neutral NORMAL; Fats, Total NORMAL
--- OUTSIDE RECORDS SUMMARY | 2018-10-16 09:19 | XMS RPT_ITS ---
:1970 Author Organization [place] Support Name Relationship Address Phone AZALEA DE LA CRUZ Unavailable [address] + [place] [address] UE Unavailable Unavailable Unavailable TRINIDAD TERAN Unavailable [address] + [place] [address] [employer] [address] + [place] [address] AZALEA DE LA CRUZ Unavailable [address] + [place] [address] TRINIDAD TERAN Unavailable [address] + [place] [address] [employer] [address] + [place] [address] AZALEA DE LA CRUZ Unavailable [address] + [place] [address] TRINIDAD TERAN Unavailable [address] + [place] [address] AZALEA DE LA CRUZ Unavailable [address] + [place] [address] UE Unavailable Unavailable Unavailable TRINIDAD TERAN Unavailable [address] + [place] [address] AZALEA DE LA CRUZ Unavailable [address] + [place] [address] UE Unavailable Unavailable Unavailable TRINIDAD TERAN Unavailable [address] + [place] [address] AZALEA DE LA CRUZ Unavailable [address] + [place] [address] UE Unavailable Unavailable Unavailable TRINIDAD TERAN Unavailable [address] + [place] [address] AZALEA DE LA CRUZ Unavailable [address] [place] [address] RD + [place] [address] UE Unavailable Unavailable Unavailable TRINIDAD TERAN Unavailable [address] + [place] [address] AZALEA DE LA CRUZ Unavailable [address] [place] [address] RD + [place] [address] UE Unavailable Unavailable Unavailable TRINIDAD TERAN Unavailable [address] + [place] [address] AZALEA DE LA CRUZ Unavailable [address] [place] [address] RD + [place] [address] UE Unavailable Unavailable Unavailable TRINIDAD TERAN Unavailable [address] + [place] [address] AZALEA DE LA CRUZ Unavailable [address] [place] [address] RD + [place] [address] UE Unavailable Unavailable Unavailable TRINIDAD TERAN Unavailable [address] + [place] [address] AZALEA DE LA CRUZ Unavailable [address] [place] [address] RD + [place] [address] UE Unavailable Unavailable Unavailable TRINIDAD TERAN Unavailable [address] + [place] [address] AZALEA DE LA CRUZ Unavailable [address] [place] [address] RD + [place] [address] UE Unavailable Unavailable Unavailable TRINIDAD TERAN Unavailable [address] + [place] [address] AZALEA DE LA CRUZ Unavailable [address] [place] [address] RD + [place] [address] UE Unavailable Unavailable Unavailable TRINIDAD TERAN Unavailable [address] + [place] [address] AZALEA DE LA CRUZ Unavailable [address] [place] [address] RD + [place] [address] UE Unavailable Unavailable Unavailable TRINIDAD TERAN Unavailable [address] + [place] [address] AZALEA DE LA CRUZ Unavailable [address] [place] [address] RD + [place] [address] UE Unavailable Unavailable Unavailable TRINIDAD TERAN Unavailable [address] + [place] [address] AZALEA DE LA CRUZ Unavailable [address] [place] [address] RD + [place] [address] UE Unavailable Unavailable Unavailable TRINIDAD TERAN Unavailable [address] + [place] [address] AZALEA DE LA CRUZ Unavailable [address] [place] [address] RD + [place] [address] UE Unavailable Unavailable Unavailable TRINIDAD TERAN Unavailable [address] + [place] [address] AZALEA DE LA CRUZ Unavailable [address] [place] [address] RD + [place] [address] UE Unavailable Unavailable Unavailable TRINIDAD TERAN Unavailable [address] + [place] [address] AZALEA DE LA CRUZ Unavailable [address] [place] [address] RD + [place] [address] UE Unavailable Unavailable Unavailable TRINIDAD TERAN Unavailable [address] + [place] [address] AZALEA DE LA CRUZ Unavailable [address] [place] [address] RD + [place] [address] UE Unavailable Unavailable Unavailable TRINIDAD TERAN Unavailable [address] + [place] [address] AZALEA DE LA CRUZ Unavailable [address] [place] [address] RD + [place] [address] UE Unavailable Unavailable Unavailable TRINIDAD TERAN Unavailable [address] + [place] [address] AZALEA DE LA CRUZ Unavailable [address] [place] [address] RD + [place] [address] UE Unavailable Unavailable Unavailable ADWSON, TRINIDAD Unavailable [address] [place] [address] AZALEA DE LA CRUZ Unavailable [address] [facility] R [phone] [place] [address] UE Unavailable Unavailable Unavailable TRINIDAD TERAN Unavailable [address] [place] [address] AZALEA DE LA CRUZ Unavailable [address] [facility] R [phone] [place] [address] UE Unavailable Unavailable Unavailable TRINIDAD TERAN Unavailable [address] [place] [address] Care Team Providers Name Role Phone MEL BOB, DR. OCAMPO Attending Unavailable Kamaljit Bolivar Attending Unavailable Mel, Kamaljit Referring Unavailable [place], Deborah Primary Care Unavailable Kamaljit Bolivar Attending Unavailable Ruelbour, Kamaljit Referring Unavailable [place], Deborah Primary Care Unavailable Edgar, Alexander Admitting Unavailable Edgar, Alexander Attending Unavailable Primay Care Physicia, No Primary Care Unavailable Calabretta, Jeronimo Consulting Unavailable Robotham, Stephenie Consulting Unavailable Edgar, Alexander Consulting Unavailable Edgar, Alexander Admitting Unavailable Edgar, Alexander Attending Unavailable Primay Care Physicia, No Primary Care Unavailable Calabretta, Jeronimo Consulting Unavailable Robotham, Stephenie Consulting Unavailable Edgar, Alexander Consulting Unavailable Robotham, Stephenie Attending Unavailable Robotham, Stephenie Referring Unavailable [place], Deborah Primary Care Unavailable Primay Care Physicia, No Primary Care Unavailable Edgar, Alexander Admitting Unavailable Kesha Mccollum Attending Unavailable Robotham, Stephenie Consulting Unavailable Primay Care Physicia, No Primary Care Unavailable Jose Cruz Bain Attending Unavailable Harmony Nicholas Attending Unavailable Primay Care Physicia, No Primary Care Unavailable Lavelle Miner Attending Unavailable Kira, Bladimir Referring Unavailable Kira, Bladimir Primary Care Unavailable Kira, Bladimir Primary Care Unavailable Samuel Hernandez Attending Unavailable Kamaljit Bolivar Attending Unavailable Jabour, Kamaljit Referring Unavailable [place], Deborah Primary Care Unavailable Kamaljit Bolivar Attending Unavailable Ruelbour, Kamaljit Referring Unavailable [place], Deborah Primary Care Unavailable Edgar, Alexander Admitting Unavailable Koram, Kesha Magda Attending Unavailable Primay Care Physicia, No Primary Care Unavailable Calabretta, Jeronimo Consulting Unavailable Robotham, Stephenie Consulting Unavailable Koram, Kesha Magda Consulting Unavailable Edgar, Alexander Admitting Unavailable Robotham, Stephenie Attending Unavailable Primay Care Physicia, No Primary Care Unavailable Calabretta, Jeronimo Consulting Unavailable Robotham, Stephenie Consulting Unavailable Edgar, Alexander Consulting Unavailable Edgar, Alexander Admitting Unavailable Edgar, Alexander Attending Unavailable Primay Care Physicia, No Primary Care Unavailable Calabretta, Jeronimo Consulting Unavailable Robotham, Stephenie Consulting Unavailable Edgar, Alexander Consulting Unavailable Edgar, Alexander Admitting Unavailable Samantha Wolfe PA-C Attending Unavailable Primay Care Physicia, No Primary Care Unavailable Calabretta, Jeronimo Consulting Unavailable Robotham, Stephenie Consulting Unavailable Edgar, Alexander Consulting Unavailable Edgar, Alexander Admitting Unavailable Edgar, Alexander Attending Unavailable Primay Care Physicia, No Primary Care Unavailable Edgar, Alexander Consulting Unavailable Chata Turpinony Attending Unavailable Primay Care Physicia, No Referring Unavailable Primay Care Physicia, No Primary Care Unavailable Nurse, Surgery Attending Unavailable Kayla, Deborah Referring Unavailable Robotham, Stephenie Attending Unavailable Sandra Garzah Referring Unavailable Gonzalez Lujan Attending Unavailable Robbie Chavez Referring Unavailable Jose Cruz Arroyo Attending Unavailable Koram, Kesha Magda Referring Unavailable Robotham, Stephenie Attending Unavailable Primay Care Physicia, No Referring Unavailable Edgar, Alexander Admitting Unavailable Robotham, Stephenie Attending Unavailable Primay Care Physicia, No Primary Care Unavailable Calabretta, Jeronimo Consulting Unavailable Robotham, Stephenie Consulting Unavailable Edgar, Alexander Consulting Unavailable PROBLEMS PROBLEMS DATE TYPE CONDITION / CODE ATTENDING STATUS SOURCE 06/24/2018 Unknown A04.8 - Other Robotham, Active [place] specified bacterial Stephenie Community intestinal Hospital infections / Repository A04.8(ICD-10) 05/24/2018 Unknown I10 - Essential Gonzalez Lujan Active [place] (primary) Community hypertension / Hospital I10(ICD-10) Repository 05/23/2018 Unknown K85.90 - Acute Koram, Kesha Magda Active [place] pancreatitis without Community necrosis or Hospital infection, Repository unspecified / K85.90(ICD-10) 04/27/2018 Unknown G89.18 - Other acute Koram, Kesha Man Active [place] postprocedural pain Community / G89.18(ICD-10) Hospital Repository 05/15/2018 Unknown R10.13 - Epigastric Jose Cruz Arroyo Active [place] pain / Community R10.13(ICD-10) Hospital Repository 05/15/2018 Unknown R10.10 - Upper Jose Cruz Arroyo Active [place] abdominal pain, Community unspecified / Hospital R10.10(ICD-10) Repository 05/15/2018 Unknown K29.70 - Gastritis, Jose Cruz Arroyo Active [place] unspecified, without Community bleeding / Hospital K29.70(ICD-10) Repository 05/15/2018 Unknown Z87.11 - Personal Jose Cruz Arroyo Active [place] history of peptic Community ulcer disease / Hospital Z87.11(ICD-10) Repository PROCEDURES PROCEDURES No Procedure Records FoundRESULTS RESULTS LIVER PROFILE Collected: 07/31/2018 Status: F Source: [place] 9:56 AM [facility] [place] Order Comment: PLEASE ADD LIPASE TO 07/31/17 LABS TYPE CODE TESTS RESULT OUT OF RANGE REFERENCE UNITS LAB L501.1500 6.4-8.2 g/dL High T PROT 8.4 LAB L501.1800 3.2-5.0 g/dL Normal ALB 4.2 LAB L501.1950 2.2-4.2 g/dL Normal GLOB 4.2 LAB L501.4100 15-37 U/L Low AST 14 LAB L501.4305 45-117 U/L High ALK P 122 LAB L501.4405 13-56 U/L Normal ALT 26 LAB L501.4600 0.20-1.00 mg/dL Normal T BILI 0.30 LAB L501.4700 0.00-0.30 mg/dL Normal D BILI 0.08 Performed By: #### L500.3400, L501.6710, L501.2450 #### [facility] [address] [place], [address] CRP Collected: 07/31/2018 Status: F Source: [place] 9:56 AM [facility] [place] Order Comment: PLEASE ADD LIPASE TO 07/31/17 LABS TYPE CODE TESTS RESULT OUT OF RANGE REFERENCE UNITS LAB L501.6710 0.0-3.0 mg/L High 8.89 C-REACTIVE PROT Result Comment: C-Reactive Protein (CRP) provides useful information for the diagnosis, therapy and monitoring of inflammatory processes and associated diseases. For the evaluation of Relative Risk for Cardiovascular Disease, a High Sensitivity CRP (HSCRP) should be ordered. Performed By: #### L500.3400, L501.6710, L501.2450 #### [facility] [address] [place], [address] LIPASE Collected: 07/31/2018 Status: F Source: [place] 9:56 AM [facility] [place] Order Comment: PLEASE ADD LIPASE TO 07/31/17 LABS TYPE CODE TESTS RESULT OUT OF RANGE REFERENCE UNITS LAB L501.2450 73-393 U/L Normal LIPASE 123 Performed By: #### L500.3400, L501.6710, L501.2450 #### [facility] [address] [place], [address] CELIAC DISEASE Collected: 07/31/2018 Status: F Source: [place] PROFILE 9:56 AM [facility] [place] TYPE CODE TESTS RESULT OUT OF RANGE REFERENCE UNITS LAB L3200.1400 87-352 mg/dL Normal IMMUNO A 205 Result Comment: Performed at: [facility] [id number] Armored Car Driver: Kamaljit Boyle PhD, Phone: [phone] LAB L3903.4733 0-3 U/mL Normal tTG IGA <2 Result Comment: Negative 0 - 3 Weak Positive 4 - 10 Positive >10 Tissue Transglutaminase (tTG) has been identified as the endomysial antigen. Studies have demonstr- ated that endomysial IgA antibodies have over 99% specificity for gluten sensitive enteropathy. LAB L3410.3284 Negative Normal ENDOMYSIAL IGA Negative Performed By: #### L3410.2400 #### [facility] (refer to report for specific site) refer to report for address and phone number FINAL SURGICAL Observed: 07/15/2018 Status: F Source: [facility] PATHOLOGY REPORT 10:45 AM [facility] [place] REPOSITORY . Pathology Reports Accession: Collected Date/Time: Received Date/Time: Pathologist: [id number] 07/15/2018 10:45 EST 07/16/2018 08:37 MD GODFREY SERRANO Final Surgical Pathology Report DIAGNOSIS: A) TERMINAL ILEUM, BIOPSY: NO SPECIFIC PATHOLOGIC CHANGES. NEGATIVE FOR ILEITIS. B) RIGHT AND LEFT COLON, BIOPSY: NO SPECIFIC PATHOLOGIC CHANGES. NEGATIVE FOR MICROSCOPIC COLITIS. C) DISTAL SIGMOID COLON, BIOPSY: HYPERPLASTIC POLYP. COMMENT: [facility] D# [id number] CLINICAL INFORMATION: Procedure: colonoscopy with biopsies terminal ileum and right and left colon, polypectomy biopsy distal sigmoid Preoperative diagnosis: diarrhea, abdominal pain Postoperative diagnosis: same SPECIMEN: A BIOPSIES TERMINAL ILEUM - R/O CROHN'S; CHRONIC DIARRHEA B BIOPSIES RIGHT AND LEFT COLON - R/O MICROSCOPIC COLITIS C POLYP, DISTAL SIGMOID GROSS DESCRIPTION: A. Received in formalin labeled terminal ileum is a 0.6 cm bush glistening soft tissue. TS -1 B. Received in formalin labeled right and left colon biopsies are several bush glistening soft tissues ranging from 0.1 to 1.0 cm. TS - 1 C. Received in formalin labeled distal sigmoid polyp is a 0.8 cm bush glistening soft tissue. TS -1 Dictated by Jennifer MCNAMARA ([facility]) MICROSCOPIC DESCRIPTION: A,B&C) Slides reviewed. Electronically Signed by Pathology Report verified by [facility] Electronically signed by GODFREY MAURICIO MD Sign out Date: 07/17/2018 11:45 Performing Lab: [facility], [address] [place] [address] Performed By: #### SPFR #### [place] [address] Observed: 07/13/2018 Status: F Source: [place] CDIFF (MOLECULAR) 9:58 AM [facility] [place] Cdiff-Molecular C. Diff DNA Negative- No toxigenic C. Diff DNA Detected NAAT METHOD Testing was performed using nucleic acid amplification Performed By: #### M100.6796 #### [facility] [address] [place], [address] FECAL FAT, QUALITATIVE Collected: 07/13/2018 Status: F Source: [place] 9:58 AM [facility] [place] TYPE CODE TESTS RESULT OUT OF RANGE REFERENCE UNITS LAB L7000.0400 Normal FATS, NEUTRAL NORMAL Result Comment: NORMAL (<60 DROPLETS/HPF) LAB L7000.0500 Normal FATS, TOTAL NORMAL Result Comment: NORMAL (<100 DROPLETS/HPF) TESTING PERFORMED AT [facility]. ORIGINAL REPORT ON FILE IN LAB CONTAINS ADDITIONAL TEST SITE INFORMATION. Performed By: #### L7000.0300 #### [facility] (refer to report for specific site) refer to report for address and phone number MISCELLANEOUS LAB Collected: 06/06/2018 Status: F Source: [place] PROCEDURE 11:37 AM [facility] [place] Order Comment: Comments: [id number] BREATH TEST Comments: breath test Test(s) Ordered: [id number] BREATH TEST TYPE CODE TESTS RESULT OUT OF RANGE REFERENCE UNITS LAB L801.1541 Normal [facility] LAB TEST Result Comment: TEST RESULT LIMITS H. PYLORI BREATH TEST NEGATIVE NEGATIVE TESTING PERFORMED AT [facility]. ORIGINAL REPORT ON FILE IN LAB CONTAINS ADDITIONAL TEST SITE INFORMATION. Performed By: #### L801.1541 #### [place] [facility] [place] [place] [facility] [address] [place], [address] SURGERY VISIT REPORT Observed: 06/05/2018 Status: F Source: [place] 1:29 PM [facility] [place] [facility] [address] [place] [address] OFFICE VISIT Date of Service: 05/30/18 MR#: [id number] Acct: [id number] Name: PETER TERAN Rep #: [id number] : 1970 Provider: Stephenie Hinson MD Age/Sex: 48/F Location: [facility] Status: Signed Intake Intake Visit Reasons: Gallbladder FU/Discuss H-Pylori Test Chief Complaint: abd pain Retail Advisor Required: No Is patient in pain?: No Allergies cyclobenzaprine HCl [From Flexeril] Adverse Reaction (Verified 05/30/18 10:10) UNABLE TO FUNCTION ON MED hydromorphone HCl [From Dilaudid] Adverse Reaction (Verified 05/30/18 10:10) Nausea Penicillins Adverse Reaction (Verified 05/30/18 10:10) YEAST INFECTION Medications Metoclopramide [Reglan] 10 mg PO 4X/DAY PRN #20 tab 04/11/18 [Rx Confirmed 05/30/18] Omeprazole [Prilosec] 20 mg PO DAILY #30 cap 04/11/18 [Rx Confirmed 05/30/18] Potassium Chloride [K-Dur] 20 meq PO BID #8 tab 04/11/18 [Rx Confirmed 05/30/18] Dicyclomine HCl [Bentyl] 10 mg PO 4X/DAY PRN #12 cap 04/17/18 [Rx Confirmed 05/30/18] lisinopril 20 mg tablet 20 mg PO BID tab 04/17/18 [History Confirmed 05/30/18] Omeprazole 40 mg PO DAILY #30 capsule. 04/26/18 [Rx Confirmed 05/30/18] clarithromycin 500 mg tablet 500 mg PO BID #28 tab 04/29/18 [Rx Confirmed 05/30/18] metronidazole 500 mg tablet 500 mg PO TID #42 tab 04/29/18 [Rx Confirmed 05/30/18] sucralfate 1 gram tablet 1 g PO QACHS #32 tab 05/30/18 [Rx Confirmed 05/30/18] Subjective Details: Patient presents for follow-up status post lap walter as well as EGD with positive H. pylori. Patient did complete her H. pylori treatment about 3 weeks ago. She has been off her PPI for about the 3 weeks and is been using baking soda so she still been having some GERD symptoms. We will plan for an H. pylori breath test in another week. Then pt can restart her PPI. Patient also saw Dr. Bolivar, who did order right upper quadrant ultrasound which was normal. Patient is complaining of having diarrhea as well Objective Details: abd: s/nd/ttp epigastric/LUq no peritoneal signs Assessment AND Plan Problems 1. GERD (gastroesophageal reflux disease) K21.9 2. Chronic diarrhea K52.9 Plan Did give the patient some Carafate for the remaining week as she needs to be off her PPI prior to doing her H. pylori breath test to prevent false negative. After the breath test done patient may go back on her PPI. Patient still complaining of issues with diarrhea discussed that she can try some Imodium as needed at this time. We will also try to obtain the office note from Dr. Bolivar his visit as to if there is any follow- up plans or what he plan to do with the right upper quadrant ultrasound. Patient will follow- up for nursing visit for H. pylori test in 1 week. Stephenie Hinson M.D. Pager: [phone] [facility] [address] [place] [address], [address] [place] [address] Office: [phone] Medications New: Coding Level of Care Code Global Post Op Diagnoses GERD (gastroesophageal reflux disease) K21.9 Chronic diarrhea K52.9 06/05/18 1329 <Electronically signed by Stephenie Hinson MD> Date Stephenie Hinson MD Cosigner Signature: Date (if applicable) CC: Deborah Garza MD; Kamaljit Bolivar ABDOMEN LIMITED Observed: 05/25/2018 Status: F Source: [place] 10:44 AM [facility] [place] [facility] [address] [place] [address] Abdomen Limited MR#: [id number] Acct: [id number] Name: PETER TERAN Rep #: [id number] : 1970 F 48 From: Milton Cleaning MD PCP: Deborah Garza MD Status: REG CLI Study: Abdomen Limited Date of Exam: 05/25/18 Exam# [id number] Ordering Dr: Kamaljit Bolivar MD STUDY: ABDOMINAL ULTRASOUND - RIGHT UPPER QUADRANT REASON FOR VISIT: Female, 48 years old. Abdominal pain. Recent cholecystectomy. TECHNIQUE: Ultrasound evaluation of the right upper quadrant was performed with real-time and static heard-scale imaging. TECHNICAL QUALITY: Limited. Examination limited by bowel gas. COMPARISON: 04/23/2018, which was preop. FINDINGS: Liver: The liver measures 14.7 cm. There is normal echogenicity of the liver. The bile ducts are within normal limits. There is hepatic color flow. The direction of portal flow is hepatopetal. There is no demonstrated mass lesion. Gallbladder: The patient is status post cholecystectomy. Common Bile Duct (C.B.D.): The common bile duct measures 3.5 mm. Pancreas: Normal size of the head, body and tail of the pancreas. There is normal echogenicity of the pancreas. There is no demonstrated pancreatic mass or cyst. Right Kidney: Normal size of the right kidney. The right kidney measures 10.4 cm. Normal renal cortex. The right cortex measures 1.5 cm. There is no demonstrated renal mass or cyst. There is no right hydronephrosis. US/Abdomen Limited IMPRESSION: No definite acute abnormality. Electronically Signed: Milton Cleaning MD at 23:58 EDT , Service support , CC: Deborah Garza MD; Kamaljit Bolivar Process Improvement Engineer: Signed SURGERY VISIT REPORT Observed: 05/14/2018 Status: F Source: [place] 8:22 AM [facility] [place] [facility] [address] [place], [place] [id number] OFFICE VISIT Date of Service: 05/10/18 MR#: [id number] Acct: [id number] Name: PETER TERAN Rep #: [id number] : 1970 Provider: Stephenie Hinson MD Age/Sex: 48/F Location: [facility] Status: Signed Intake Intake Visit Reasons: Gall Bladder Surgery 04/26 Chief Complaint: abd pain Retail Advisor Required: No Is patient in pain?: Yes (abdomen) Allergies cyclobenzaprine HCl [From Flexeril] Adverse Reaction (Verified 05/10/18 13:04) UNABLE TO FUNCTION ON MED hydromorphone HCl [From Dilaudid] Adverse Reaction (Verified 05/10/18 13:04) Nausea Penicillins Adverse Reaction (Verified 05/10/18 13:04) YEAST INFECTION Medications Metoclopramide [Reglan] 10 mg PO 4X/DAY PRN #20 tab 04/11/18 [Rx Confirmed 05/10/18] Omeprazole [Prilosec] 20 mg PO DAILY #30 cap 04/11/18 [Rx Confirmed 05/10/18] Potassium Chloride [K-Dur] 20 meq PO BID #8 tab 04/11/18 [Rx Confirmed 05/10/18] Dicyclomine HCl [Bentyl] 10 mg PO 4X/DAY PRN #12 cap 04/17/18 [Rx Confirmed 05/10/18] lisinopril 20 mg tablet 20 mg PO BID tab 04/17/18 [History Confirmed 05/10/18] Omeprazole 40 mg PO DAILY #30 anthony. 04/26/18 [Rx Confirmed 05/10/18] bismuth subsalicylate 525 mg/15 mL oral suspension 525 mg PO .QID 14 Days #354 ml 04/29/18 [Rx Confirmed 05/10/18] clarithromycin 500 mg tablet 500 mg PO BID #28 tab 04/29/18 [Rx Confirmed 05/10/18] metronidazole 500 mg tablet 500 mg PO TID #42 tab 04/29/18 [Rx Confirmed 05/10/18] Subjective Details: Patient presents status post laparoscopic cholecystectomy with intraoperative cholangiograms on 04/26/18 for biliary dyskinesia. Patient also had an EGD earlier that week which was positive for H. pylori. Patient was started on PPI as well as bismuth, metronidazole, clarithromycin as patient would not take penicillin due to yeast infections. Patient is currently on day 11 out of 14 of her medication. She states she still has reflux daily and states that her pain in the left upper quadrant can be a 6-7/10 usually worse as the days goes on. She also admits to a initially having more solid stools after surgery but it has started to have more diarrhea. Wondering if this could possibly due to the antibiotics. Patient states she is able to tolerate a diet with no nausea and vomiting with it but may have some nausea or vomiting associated with the pain occasionally. Patient does states she does occasionally get gas pains which the edges are improved with bowel movements. She does still have her appointment Dr. Bolivar towards the end of this month. She also did get Bentyl per her PCP however she just able to get the prescription as her issues getting it filled. So patient has not taken any of the Bentall yet Objective Details: Abdomen, soft, nondistended, tender to palpation left upper quadrant and epigastric no tenderness palpation in the right upper quadrant or lower abdomen, no peritoneal signs, incisions healing well. Assessment AND Plan Problems 1. S/P laparoscopic cholecystectomy Z90.49 2. Helicobacter pylori gastritis K29.70; B96.81 3. GERD (gastroesophageal reflux disease) K21.9 Plan Since patient has completed 11 days of antibiotics okay to stop as sooner if this could be causing some of her pain as well as her diarrhea. Encourage patient to stay on the Prilosec and states that she could try 40 mg p.o. twice daily instead of just daily to see if that helps with her symptoms. Still encourage patient to keep her appointment Dr. Bolivar and she still may need a colonoscopy due to her abdominal and issues with diarrhea. Will check H. pylori breath test in 4 weeks from completion of treatment but discussed with patient she would need to come off her PPI for approximately 2 weeks prior to help prevent falls negatives. Follow-up in 2 weeks. Patient is agreeable plan Stephenie Hinson M.D. Pager: [phone] [facility] [address] [place] [address], Outpatient [place], [address] [place] [id number] Office: [phone] Plan Detail Follow Up 2 Weeks Coding Level of Care Code Global Post Op Diagnoses S/P laparoscopic cholecystectomy Z90.49 Helicobacter pylori gastritis K29.70; B96.81 GERD (gastroesophageal reflux disease) K21.9 05/14/18 0822 <Electronically signed by Stephenie Hinson MD> Date Stephenie Hinson MD Cosigner Signature: Date (if applicable) CC: Kamaljit Bolivar EMERGENCY DEPARTMENT Observed: 05/03/2018 Status: F Source: [place] SUMMARY 12:08 AM [facility] [place] [facility] Medical Records Department [address] [place] [address] Emergency Department Summary 04/23/18 0616 MR#: [id number] Acct: [id number] Name: PETER TERAN Rep #: [id number] : 1970 47 From: Sanjay Metcalf MD PCP: Care Physician, No Primary Status: DIS IN - ER Visit Summary Date of Service: 04/23/18 Chief Complaint: [] Abdominal pain History of Present Illness: The patient is a 47 F been experiencing abdominal pain for last 3-6 weeks. It was worse this morning. It waxes and wanes. Is moderate. She has had nausea with intermittent vomiting and intermittent diarrhea loose for the last 6 weeks. She has had 2 ER visits with negative workups including lab work CT abdomen pelvis and gallbladder ultrasound. She has had 3 attacks since the . She is having an appointment to see GI Dr. Bolivar the end of the month. She did see surgery Dr. Turpin after her first ER visit on the . Nothing was found at that time. Physical Examination: [] Vital signs reviewed General: Well-nourished well-developed Head: Normocephalic atraumatic Eyes: Pupils equal round and reactive to light extraocular movements intact ENT: TMs clear no hemotympanum no trauma Neck: Nontender full range of motion Cardiovascular: Regular rate rhythm no murmurs normal S1-S2 Respiratory: No distress clear to auscultation bilaterally chest nontender Abdomen: Soft diffuse tenderness normal bowel sounds no masses Back: Nontender no CVA tenderness Extremities: Nontender active range of motion 4 extremities no trauma Skin: Normal color no trauma Neuro alert oriented cranial nerves II through XII intact normal strength sensation reflexes Test Results: [] Emergency Department Course and Treatment: [] Patient given IV fluids, morphine, Zofran. Lab work obtained. Lab work shows an acute pancreatitis with a lipase of 1139. CBC normal except a white count of 12.1. Chemistries normal except potassium 3.4. Glucose 130. Patient felt better after treatment. She will be admitted. Given copious IV fluids. She states she is not an alcohol drinker. Recent negative ultrasound of her gallbladder. It is unclear to me the cause of her pancreatitis. She also has a chronic diarrhea. She could have celiac disease with some of her symptoms being so chronic. She has an appointment with GI at the end of the month but she will need to be admitted to calm her pancreas down. Treatment Plan: [] Disposition: [] Impression: [] Pancreatitis Chronic diarrhea This note was generated with [employer] dictation software. It may contain incorrect words, spelling, and punctuation that were not noted in review of the chart prior to signing ED Disposition - Plan for ED Patient: Chief Complaint: Abd Pain Referrals: Care Physician,No Primary [Primary Care Provider] - What to do if you have Problems For any increased pain, shortness of breath, bleeding, nausea or vomiting, chest pain, or any unexpected problems, contact your Primary Care Provider. Call [facility] ([phone]) or report to the closest Emergency Room. Call 911 if necessary. 05/03/18 0008 <Electronically signed by Sanjay Metcalf MD> Date Sanjay Metcalf MD Cosigner Signature (If Indicated): Date CC: No Primary Care Physician 12 LEAD ELECTROCARDIOGRAM Observed: 04/29/2018 Status: F Source: [place] 3:39 PM [facility] [place] [facility] Cardiovascular Services [address] [place] [address] 12 Lead EKG 04/26/18 0958 MR#: [id number] Acct: [id number] Name: PETER TERAN Toyin Rep #: [id number] : 1970 47 From: Meeta Ballesteros MD Attending Dr: Kesha Mccollum MD Status: DIS IN Ordering Dr: Robbie Chavez MD Date: 04/26/18 Location: [facility] Sex: F C Admitted: 04/23/18 Test Reason : PRE-OP Blood Pressure : / mmHG Vent. Rate : 075 BPM Atrial Rate : 075 BPM P-R Int : 140 ms QRS Dur : 080 ms QT Int : 372 ms P-R-T Axes : 028 038 029 degrees QTc Int : 415 ms Normal sinus rhythm Normal ECG Confirmed by Meeta Ballesteros ([id number]), editorial manager BEKAH CANTU ([id number]) on 04/29/2018 3:39:05 PM Referred By: GEORGINA Confirmed By:Meeta Ballesteros 04/29/18 1539 Date Meeta Ballesteros MD CC: No Primary Care Physician; Robbie Chavez MD; Kesha Mccollum MD Signed DISCHARGE SUMMARY Observed: 04/27/2018 Status: F Source: [place] 2:08 PM [facility] REPOSIT[facility] Medical Records Department [address] [place] [address] Discharge Summary 04/27/18 1058 MR#: [id number] Acct: [id number] Name: PETER TERAN Toyin Rep #: [id number] : 1970 47 From: Kesha Mccollum MD PCP: Care Physician, No Primary Status: DIS IN Y Location: [facility] [id number] Discharge Date and Diagnosis Date of Admission: 04/23/18 Date of Discharge: 04/27/18 - Primary Discharge Diagnosis Active and Suspected Problems (Last Reviewed 04/24/18 @ 15:43 by Samantha Wolfe PA-C) Chronic diarrhea (Acute) Pancreatitis, acute (Acute) - Secondary Discharge Diagnosis Chronic Problems (Last Reviewed 04/24/18 @ 15:43 by Samantha Wolfe PA-C) Peptic ulcer disease (Chronic) GERD (gastroesophageal reflux disease) (Chronic) Cervical disc disorder (Chronic) Abdominal pain (Chronic) Hypertension (Chronic) Hospital Course and Treatment Imaging Results: Diagnostic Data Abdomen Ultrasound 04/23/18 08:42 IMPRESSION: Normal right upper quadrant ultrasound examination. Electronically Signed: Dany Huertas MD at 13:13 EDT Tel [phone], Service support , MRCP 04/24/18 13:03 IMPRESSION: Normal MR Cholangiopancreatography (MRCP). Electronically Signed: oJhan Ching MD at 19:34 EDT , Service support , ADDENDUM: 04/25/18 1647 IMPRESSION: Normal MR Cholangiopancreatography (MRCP). Electronically Signed: Johan Ching MD at 16:40 EDT , Service support , Hepatobiliary Scan Nuclear Medicine 04/25/18 07:42 IMPRESSION: 1. ABNORMAL 99m Tc Mebrofenin hepatobiliary imaging examination with fatty meal ingestion. A. A gallbladder ejection fraction calculated to be less than 30% following the administration of an ingested fatty meal is consistent with the presence of functional hepatobiliary disease (gallbladder and/or sphincter of Oddi dyskinesia) and/or organic hepatobiliary disease (chronic acalculous cholecystitis and/or cystic duct syndrome) in patients with intermediate to high pretest probabilities of hepatobiliary illness. (Maco and Ildefonso, J Nucl Med 43: 1603, 2002). B. Duodenal-gastric reflux is defined following fatty meal consumption. Electronically Signed: Godfrey Hodge DO at 16:37 EDT Tel , Service support , Cholangiogram 04/26/18 09:00 IMPRESSION: Unremarkable intraoperative cholangiogram. Electronically Signed: Dany Huertas MD at 15:04 EDT Tel [phone], Service support , Laboratory Tests WBC 12.1 H 5.8 RBC 4.77 3.71 L Hgb 15.7 H 12.2 Hct 44.1 35.8 L WBC 5.4 RBC 3.65 L Hgb 11.8 L WBC RBC Hgb Hct MCV MCH MCHC RDW RDW Differential general surgery- Dr Arroyo Operations: cholecystecomy - laparoscopic, - Procedures: None Summary of Care Provided: The patient is a 47 year old F with a history of chronic cervical disc degeneration/herniation s/p surgery, ?GERD and PUD was admitted via the ED on 04/23/2018 with complaint of abdominal pain, nausea and vomiting as well as diarrhea which has been going on for about 6 weeks prior to admission. She had been seen 3 times in the ER since 04/11/2018. She has seen Dr. Turpin on outpatient basis and had a CT of the abdomen and ultrasound of the liver which was reported as normal. In the ED, she was found to have abdominal elevated lipase of 1139. She was admitted and managed for acute pancreatitis. MRCP done on 04/24/2018 was normal. She had an EGD on 03/25/2018 which showed mild gastritis with no evidence of ulceration. HIDA scan was done which showed gallbladder ejection fraction, related to be less than 30% which was consistent with presence of functional hepatobiliary disease. Had a laparoscopic cholecystectomy on 04/18/2018. He was able to tolerate a diet after laparoscopic cholecystectomy and pain was well controlled with Percocet. She was discharged home on 04/27/2018 with a prescription for Percocet as given by general surgery. She is to follow-up with Dr. Hinson on 04/29/2018 in her office. Patient was seen and examined prior to discharge. She had no complaints and wanted to go home. Pain was well controlled and she denied any fever or chills, any cough or chest pain, shortness of breath any diarrhea vomiting. 12 point review of systems otherwise negative. Labs and vitals reviewed. On examination: Vital Signs Height 5 ft 3 in Weight: 150 lb 9.211 oz General: Alert, Oriented x3, Cooperative HEENT: Atraumatic, PERRLA, EOMI, Normocephalic Neck: Supple, No JVD, Negative Carotid Bruits Lungs: Clear to auscultation, Normal air movement, No rhonchi, No wheeze Cardiovascular: Regular rate, Regular Rhythm, Normal S1, Normal S2, No murmurs Abdomen: Bowel Sounds Present, Soft, Non-Distended, clean lap cholecystectomy wound site, with clean dressing. Abdomen minimally tender to touch Extremities: No edema, Capillary Refill Less than 3 Seconds Skin: No rashes, No breakdown Musculoskeletal: No Tenderness to Palpation of Joints or Extremities Neurological: Cranial nerves II-XII grossly intact Psych/Mental Status: Normal Affect, Appropriate,AO x 3 Plan as stated above. She is to follow up with general surgery and her PCP. She was give a script for percocet 1-2 tab q6prn #25 tabs by general surgery and PO omeprazole 40mg daily. Discharge Diet: Light diet - advance as tolerated Discharge Activity: Return to Normal Activity, May not drive while taking narcotic pain medications. May shower in (days): 1 Weight Bearing Status: Weight bearing as tolerated Call your doctor if your incision/area has: Continuous Slow Oozing, Sudden Increased Bleeding, Increased Pain/ Swelling, Increased Redness, Foul Smelling Discharge, Swelling at the incision site Call your doctor if you observe: Fever of 101 or Higher Remove Dressing in (days):: 1 Home Medications: Medications to take at Discharge Metoclopramide [Reglan] 10 mg PO 4X/DAY PRN #20 tab 04/11/18 Omeprazole [Prilosec] 20 mg PO DAILY #30 cap 04/11/18 Ondansetron [Zofran Odt] 4 mg PO Q8H PRN PRN #10 tab 04/11/18 Potassium Chloride [K-Dur] 20 meq PO BID #8 tab 04/11/18 Dicyclomine HCl [Bentyl] 10 mg PO 4X/DAY PRN #12 cap 04/17/18 lisinopril 20 mg tablet 20 mg PO BID tab 04/17/18 Omeprazole 40 mg PO DAILY #30 capsule. 04/26/18 Oxycodone HCl/Acetaminophen [Percocet 5/325] 1 - 2 tablet PO Q6H PRN PRN 4 Days #25 tablet 04/26/18 Following Prescrptions Were Given to Patient: Oxycodone HCl/Acetaminophen [Percocet 5/325] 1 - 2 tablet PO Q6H PRN PRN 4 Days #25 tablet PRN Reason: Pain Omeprazole 40 mg PO DAILY #30 capsule. Primary Care Physician: Care Physician,No Primary [Primary Care Provider] - Please follow up with your Primary Care Physician in: please follow up with your PCP in 1 week Please Follow Up With: Stephenie Hinson MD When: Call the office for a follow-up appointment in 2 weeks Disposition: Home Minutes spent on discharge:: 35 Patient Condition:: Stable Medical Necessity - Tobacco Use Smoking Status: Current every day smoker Tobacco Use: Cigarettes Meaningful Use Info Meaningful Use Diagnoses (Choose all that apply): None applicable Code Visit Inpatient E AND M: 42420 Disch Hosp 04/27/18 1408 <Electronically signed by Kesha Mccollum MD> Date Kesha Mccollum MD Cosigner Signature (if applicable): Date CC: No Primary Care Physician; Kesha Mccollum MD Signed DISCHARGE INSTRUCTION Observed: 04/27/2018 Status: F Source: [place] 10:58 AM [facility] [place] [facility] Medical Records Department [address] [place] [address] Instructions for Home/Discharge Instructions 04/27/18 1057 MR#: [id number] Acct: [id number] Name: DAWSONPETER L Rep #: [id number] : 1970 47 From: Kesha Mccollum MD PCP: Care Physician, No Primary Status: ADM IN - Discharge Diagnoses Current Active Problems: Current Active and Chronic Problems (Last Reviewed 04/24/18 @ 15:43 by Samantha Wolfe PA-C) Peptic ulcer disease (Chronic) GERD (gastroesophageal reflux disease) (Chronic) Cervical disc disorder (Chronic) Abdominal pain (Chronic) Chronic diarrhea (Acute) Hypertension (Chronic) Pancreatitis, acute (Acute) You will use the following diet at home:: Clear liquid - advance as tolerated Your food should be the consistency of: Regular Your liquids should be the consistency of: Regular/Thin Discharge Activity: Return to Normal Activity, May not drive while taking narcotic pain medications. May shower in (days): 1 Weight Bearing Status: Weight bearing as tolerated Call your doctor if your incision/area has: Continuous Slow Oozing, Sudden Increased Bleeding, Increased Pain/ Swelling, Increased Redness, Foul Smelling Discharge, Swelling at the incision site Call your doctor if you observe: Fever of 101 or Higher Remove Dressing in (days):: 1 Allergies/Adverse Reactions: Allergies cyclobenzaprine HCl [From Flexeril] Adverse Reaction (Verified 04/23/18 06:04) UNABLE TO FUNCTION ON MED hydromorphone HCl [From Dilaudid] Adverse Reaction (Verified 04/23/18 06:04) Nausea Penicillins Adverse Reaction (Verified 04/23/18 06:04) YEAST INFECTION Medications to take at Discharge Metoclopramide [Reglan] 10 mg PO 4X/DAY PRN #20 tab 04/11/18 Omeprazole [Prilosec] 20 mg PO DAILY #30 cap 04/11/18 Ondansetron [Zofran Odt] 4 mg PO Q8H PRN PRN #10 tab 04/11/18 Potassium Chloride [K-Dur] 20 meq PO BID #8 tab 04/11/18 Dicyclomine HCl [Bentyl] 10 mg PO 4X/DAY PRN #12 cap 04/17/18 lisinopril 20 mg tablet 20 mg PO BID tab 04/17/18 Omeprazole 40 mg PO DAILY #30 capsule. 04/26/18 Oxycodone HCl/Acetaminophen [Percocet 5/325] 1 - 2 tablet PO Q6H PRN PRN 4 Days #25 tablet 04/26/18 The following prescriptions were given: Oxycodone HCl/Acetaminophen [Percocet 5/325] 1 - 2 tablet PO Q6H PRN PRN 4 Days #25 tablet PRN Reason: Pain Omeprazole 40 mg PO DAILY #30 capsule. Primary Care Physician: Care Physician,No Primary [Primary Care Provider] - Please follow up with your Primary Care Physician in: please follow up with your PCP in 1 week Test Results: Test results from this visit will be discussed in further detail at your follow-up appointment, if applicable. Please Follow Up With: Stephenie Hinson MD When: Call the office for a follow-up appointment in 2 weeks Proposed Discharge Date: 04/27/18 04/27/18 1058 <Electronically signed by Kesha Mccollum MD> Date Kesha Mccollum MD CC: No Primary Care Physician; Jeronimo Turpin MD; Stephenie Hinson MD DISCHARGE INSTRUCTION Observed: 04/27/2018 Status: F Source: [place] 6:01 AM [facility] [place] [facility] Medical Records Department [address] [place] [address] Instructions for Home/Discharge Instructions 04/26/18 1510 MR#: [id number] Acct: [id number] Name: PETER TERAN Rep #: [id number] : 1970 47 From: Stephenie Hinson MD PCP: Care Physician, No Primary Status: ADM IN Discharge Diet: Light diet - advance as tolerated Discharge Activity: May not drive while taking narcotic pain medications. May shower in (days): 1 Lifting Restrictions: No lifting greater than 20 pounds for 4 weeks Call your doctor if your incision/area has: Continuous Slow Oozing, Sudden Increased Bleeding, Increased Pain/ Swelling, Increased Redness, Foul Smelling Discharge, Swelling at the incision site Call your doctor if you observe: Fever of 101 or Higher Remove Dressing in (days):: 1 Allergies/Adverse Reactions: Allergies cyclobenzaprine HCl [From Flexeril] Adverse Reaction (Verified 04/23/18 06:04) UNABLE TO FUNCTION ON MED hydromorphone HCl [From Dilaudid] Adverse Reaction (Verified 04/23/18 06:04) Nausea Penicillins Adverse Reaction (Verified 04/23/18 06:04) YEAST INFECTION Medications to take at Discharge Hydrocodone Bitart/Apap 5-325 [[place] 5MG-325MG] 1 tab PO Q6H PRN PRN 3 Days #10 tab 04/11/18 Metoclopramide [Reglan] 10 mg PO 4X/DAY PRN #20 tab 04/11/18 Omeprazole [Prilosec] 20 mg PO DAILY #30 cap 04/11/18 Ondansetron [Zofran Odt] 4 mg PO Q8H PRN PRN #10 tab 04/11/18 Potassium Chloride [K-Dur] 20 meq PO BID #8 tab 04/11/18 Dicyclomine HCl [Bentyl] 10 mg PO 4X/DAY PRN #12 cap 04/17/18 lisinopril 20 mg tablet 20 mg PO BID tab 04/17/18 Omeprazole 40 mg PO DAILY #30 capsule. 04/26/18 Oxycodone HCl/Acetaminophen [Percocet 5/325] 1 - 2 tablet PO Q6H PRN PRN 4 Days #25 tablet 04/26/18 The following prescriptions were given: Oxycodone HCl/Acetaminophen [Percocet 5/325] 1 - 2 tablet PO Q6H PRN PRN 4 Days #25 tablet PRN Reason: Pain Omeprazole 40 mg PO DAILY #30 capsule. Primary Care Physician: Care Physician,No Primary [Primary Care Provider] - Test Results: Test results from this visit will be discussed in further detail at your follow-up appointment, if applicable. Please Follow Up With: Stephenie Hinson MD When: Call the office for a follow-up appointment in 2 weeks Proposed Discharge Date: 04/27/18 04/27/18 06 <Electronically signed by Stephenie Hinson MD> Date Stephenie Hinson MD CC: No Primary Care Physician; Jeronimo Turpin MD; Stephenie Hinson MD BEDSIDE GLUCOSE Collected: 04/26/2018 Status: F Source: [place] 10:37 PM [facility] [place] TYPE CODE TESTS RESULT OUT OF REFERENCE UNITS RANGE LAB L501.080 70-110 mg/dL High BEDSIDE GLU 117 Result Comment: MANAGEMENT OF PATIENT CARE PER NURSING PROTOCOL Performed By: #### L501.080 #### [facility] Point of Care [address] [place] [address] OPERATIVE REPORT Observed: 04/26/2018 Status: F Source: [place] 11:36 AM [facility] [place] [facility] Medical Records Department [address] [place] [address] Operative Report 04/26/18 1133 MR#: [id number] Acct: [id number] Name: PETER TERAN Rep #: [id number] : 1970 47 From: Stephenie Hinson MD PCP: Care Physician, No Primary Status: ADM IN Location: [place] [address] Report of Operation Date of Procedure: 04/25/18 Pre-Operative Diagnosis: Biliary dyskinesia Post-Operative Diagnosis: Same Surgery/Procedure Performed:: Laparoscopic cholecystectomy with cholangiograms engineer design and construction: none engineer design and construction: Scarlet Magana Type of Anesthesia:: General/Supplemental Anesthesiologist: Robbie Chavez Specimen's removed: Gallbladder Estimated Blood Loss (mL): <10cc Fluids Replaced: 1 L Description of Procedure: Indications this is a [] year-old [] who developed abdominal pain/nausea/vomiting and on workup was found to have cholelithiasis, acute pancreatitis with a normal common bile duct. Laparoscopic cholecystectomy was elected. Description procedure: The patient was placed on operating table in supine position. General Anesthesia was induced. A timeout was completed verifying correct patient, procedure, site, position, social, and special equipment prior to beginning procedure. An orogastric tube was placed. The abdomen was prepped and draped in usual sterile fashion. An incision was made in the natural skin line above the umbilicus. The fascia was elevated and incised. The peritoneum was elevated and incised. Entry into the peritoneum was confirmed visually and no bowel was noted in the vicinity of the incision. Grajeda trocar was placed. The abdomen was insufflated with carbon dioxide to a pressure of 12-15 mmHg. Patient tolerated insufflation well. The laparoscope was then inserted and abdomen inspected. No injuries from initial trocar placement were noted. Additional trochars were then inserted in the following locations 5 mm trocar in the epigastrium and 2 more 5 mm trochars along the right costal margin. The abdomen was inspected no abnormalities were found. The table is placed in reverse Trendelenburg position with the right side up. The adhesions between the gallbladder and omentum were lysed sharply. The dome of the gallbladder was grasped with atraumatic grasper passed through the lateral port and retracted over the dome of the liver. Infundibulum was then grasped with atraumatic grasper through the midclavicular port and retracted to the right lower quadrant. This maneuver exposed Calot's triangle. The peritoneum overlying the gallbladder infundibulum was then incised and cystic duct and artery identified and circumferentially dissected. Cholangiograms were completed using Isovue 300 and the Ranfac catheter. Incision was made in the upper abdomen with a 15 blade for the Ranfac. Scissors were used to cut the cystic duct to place the Ranfac and then a clip was placed. Cholangiogram was obtained which showed good flow of bile into the duodenum with no filling defect as well as good flow into both bile ducts. The cystic duct and artery were then doubly clipped and divided close to the gallbladder. The gallbladder then dissected from its peritoneal attachments by electrocautery. Hemostasis was checked and the gallbladder and contained stones were removed using the endoscopic retrieval bag through the umbilical port. The gallbladder is passed off table as specimen. The gallbladder fossa was copiously irrigated with saline and hemostasis obtained. There is no evidence of bleeding from the gallbladder fossa or cystic artery leakage of bile from the cystic duct stump. Secondary trochars removed under direct vision. No bleeding was noted the trocar sites. The laparoscope was withdrawn and umbilical trocar removed. The abdomen was allowed to collapse. The fascia of the 12 mm trocar was closed with a lykara-qi-tjtrk 0 Vicryl suture. The skin was closed with sutures of 4-0 Monocryl and Steri-Strips. The orogastric tube was removed and the patient was extubated. The patient tolerated procedure well and was taken to the postanesthesia care unit in stable condition. - Complications None 04/26/18 1136 <Electronically signed by Stephenie Hinson MD> Date Stephenie Hinson MD CC: No Primary Care Physician; Jeronimo Turpin MD; Stephenie Hinson MD Signed CHOLANGIOGRAM/ O Observed: 04/26/2018 Status: F Source: [place] R,INITIAL 8:59 AM [facility] [place] [facility] Imaging Services [address] [place] [address] Cholangiogram/ O R,Initial MR#: [id number] Acct: [id number] Name: PETER TERAN Rep #: [id number] : 1970 F 47 From: Dany Huertas MD PCP: Care Physician, No Primary Status: ADM IN Study: Cholangiogram/ O R,Initial Date of Exam: 04/26/18 Exam# [id number] Ordering Dr: Stephenie Hinson MD STUDY: INTRAOPERATIVE CHOLANGIOGRAM. REASON FOR EXAM: Female, 47 years old. Laparoscopic cholecystectomy. FLUOROSCOPY TIME (if supplied): (0:15) minutes/seconds. One image was submitted. TECHNIQUE: An intraoperative cholangiogram was performed by the surgeon. Imaging was submitted. COMPARISON: None. FINDINGS: The visualized intrahepatic biliary ducts are unremarkable. The common bile duct is unremarkable. There is free flow of contrast into the duodenum. RAD/Cholangiogram/ O R,Initial IMPRESSION: Unremarkable intraoperative cholangiogram. Electronically Signed: Dany Huertas MD at 15:04 EDT Tel [phone], Service support , CC: No Primary Care Physician; Stephenie Hinson MD Process Improvement Engineer: Signed CBC W/DIFF, AUTOMATED Collected: 04/26/2018 Status: F Source: [place] 5:10 AM [facility] [place] CODE TESTS RESULT OUT OF RANGE REFERENCE UNITS LAB L100.1000 4.4-11.0 K/mm3 Low WBC 4.1 LAB L100.1200 4.2-5.4 M/mm3 Low RBC 3.67 LAB L100.1300 12.0-15.0 g/dl Normal HGB 12.0 LAB L100.1400 37-47 % Low HCT 35.1 LAB L100.1500 81-99 fL Normal MCV 95.6 LAB L100.1600 27.0-32.0 pg High MCH 32.7 LAB L100.1700 32-36 g/gl Normal MCHC 34.2 LAB L100.1810 11.6-14.6 % Normal RDW CV 13.0 LAB L100.1820 35.1-43.9 fl Normal RDW SD 43.5 LAB L100.1900 150-450 K/mm3 Normal PLT 204 LAB L100.2000 6.2-12.0 fl Normal MPV 10.3 LAB L100.2100 47-70 % Normal NEUT% 51.3 LAB L100.2200 19-41 % Normal LY% 31.7 LAB L100.2300 0-10 % High MONO% 14.1 LAB L100.2400 0-5 % Normal EO% 2.2 LAB L100.2500 0-1 % Normal BASO% 0.7 LAB L100.2550 0.0-0.9 % Normal IM GRAN % 0.000 Result Comment: IG% - Immature Granulocytes (promyelocytes, myelocytes and metamyelocytes) > 1% indicates that a LEFT SHIFT is Present. LAB L100.2620 2.0-7.7 X10 3/uL Normal Absolute Neut 2.1 LAB L100.2720 0.83-4.51 X10 3/ul Normal Absolute Lymph 1.30 Performed By: #### L100.0100 #### [facility] [address] [place], [place], [id number] COMPREHENSIVE METABOLIC Collected: 04/26/2018 Status: F Source: [facility] 5:10 AM [facility] [place] CODE TESTS RESULT OUT OF RANGE REFERENCE UNITS LAB L501.0100 74-106 mg/dL High GLU 115 Result Comment: Fasting Glucose result from 100 to 125 mg/dL suggests IMPAIRED HOMEOSTASIS per A.D.A. criteria. Please note revised GLUCOSE reference range effective 2017. LAB L501.1000 7-18 mg/dL Low BUN 3 LAB L501.1100 0.55-1.02 mg/dL Normal CREAT,SERUM 0.65 Result Comment: The validity of the calculated GFR AND GFRAA in patients over 70 years has not been determined. Clinical correlation is essential. LAB L501.1110 >60 mL/min Normal EST GFR 103 Result Comment: Non- GFR Calc LAB L501.1115 >60 mL/min Normal EST GFR - AA 125 Result Comment: GFR Calc LAB L501.1255 ml/min Normal Estimated CRCL 88.51 LAB L501.1300 10-20 RATIO Low BUN/CRE 4.6 LAB L501.1500 6.4-8. g/dL Low 2 T PROT 5.8 LAB L501.1800 3.2-5. g/dL Low 0 ALB 2.4 LAB L501.1950 2.2-4. g/dL Normal 2 GLOB 3.4 LAB L501.2000 0.9-2. RATIO Low 4 A/G 0.7 LAB L501.2200 8.5-10 mg/dL Normal .1 CA 8.6 LAB L501.4100 15-37 U/L Low AST 13 LAB L501.4305 45-117 U/L Normal ALK P 85 LAB L501.4405 13-56 U/L Normal ALT 20 LAB L501.4600 0.20-1 mg/dL Normal .00 T BILI 0.40 LAB L501.5300 136-14 mmol/L Normal 5 NA 142 LAB L501.5600 3.5-5. mmol/L Normal 1 K 3.6 LAB L501.5900 98-107 mmol/L High CL 108 LAB L501.6100 21.0-3 mmol/L Normal 2.0 CO2 25.0 LAB L501.6200 5-15 Normal GAP 9 Performed By: #### L500.4050, L501.2450 #### [facility] [address] [place], [address] LIPASE Collected: 04/26/2018 Status: F Source: [place] 5:10 AM [facility] [place] CODE TESTS RESULT OUT OF REFERENCE UNITS RANGE LAB L501.2450 73-393 U/L High LIPASE 545 Performed By: #### L500.4050, L501.2450 #### [facility] [address] [place], [address] GALLBLADDER Observed: 04/26/2018 Status: F Source: [place] 12:00 AM [facility] [place] Patient: PETER TERAN : 1970 (47/F) Acct Num: [id number] Phys: Kesha Mccollum MD Unit Num: [id number] Loc: MS3 PE036-7 Specimen: [id number] Received: 04/26/18 - 1320 Spec Type: GALLBLADDE TISSUES 1 TISSUES: Gallbladder, NOS GROSS DESCRIPTION Received is one container labeled with the patient's name and designated gallbladder and contents. The specimen consists of a gallbladder measuring 6 cm in length and up to 2.5 cm in diameter. The external surface is pink-bush, smooth and glistening for the most part. Focally it is granular, hemorrhagic and contains cautery artifact. The gallbladder contains green- yellow mucoid bile. No stones are identified in the container or in the gallbladder. The mucosa is bile-stained and without any mass lesions. The gallbladder wall measures up to 0.3 cm in thickness. Senior Pensions Administrator sections from the gallbladder and the cystic duct are submitted in one cassette. / [place]:[email or web address] 04/26/18 TC:3 CPT: 63949 HEADER OPERATION: Laparoscopic cholecystectomy with IOC PRE-OP DIAGNOSIS: Pancreatitis, biliary dyskinesia TISSUE SUBMITTED: Gallbladder and contents MICROSCOPIC DESCRIPTION Slides are reviewed. MICROSCOPIC DIAGNOSIS Gallbladder and contents: Chronic cholecystitis. No stones are identified in the container or in the gallbladder. AMERICA:[email or web address] 04/29/18 Signed Misael Martin 04/29/18 <signature on file> Performed By: #### PGALL #### [facility] [address] [place], [address] BEDSIDE GLUCOSE Collected: 04/25/2018 Status: F [facility]: [place] [facility] CODE TESTS RESULT OUT OF REFERENCE UNITS RANGE LAB L501.080 70-110 mg/dL High BEDSIDE GLU 130 Result Comment: MANAGEMENT OF PATIENT CARE PER NURSING PROTOCOL Performed By: #### L501.080 #### [facility] Point of Care [address] [place] [address] HEPATOBILLIARY IMG Observed: 04/25/2018 Status: F Source: [place] W/PHARM INT 7:43 AM [facility] [place] [facility] Imaging Services [address] [place] [address] Hepatobilliary Img w/Pharm Int MR#: [id number] Acct: [id number] Name: PETER TERAN Rep #: [id number] : 1970 F 47 From: Godfrey Hodge DO PCP: Care Physician, No Primary Status: ADM IN Study: Hepatobilliary Img w/Pharm Int Date of Exam: 04/25/18 Exam# [id number] Ordering Dr: Jose Cruz Arroyo MD CLINICAL: 47-year-old female with reported history of abdominal pain and nausea. RADIONUCLIDE HEPATOBILIARY SCINTIGRAPHY COMPARISON: Abdominal ultrasound report 04/17/2018, CT of the abdomen- pelvis report 04/11/2018, MRI of the gallbladder report 04/24/2018 FINDINGS: Following the intravenous administration of 5.8 mCi of 99m Tc Mebrofenin, hepatobiliary images reveal: 1. Relatively prompt and homogeneous radiopharmaceutical concentration is noted by a normal sized liver. No parenchymal defects are identified. 2. Gallbladder activity is identified at [dv] minutes post radiopharmaceutical administration. 3. Small intestinal tract is observed at [dv] minutes post radiopharmaceutical administration. 4. Washout of the radiopharmaceutical by the hepatic parenchyma occurs in a normal fashion on qualitative inspection. The patient was administered a fatty meal (8 ounces Boost). The post fatty meal ingestion gallbladder ejection fraction calculated at 60 minutes was noted to be 21.0 % (normal greater than 30%). There is visualized post fatty meal duodenal-gastric reflux. NM/Hepatobilliary Img w/Pharm Int IMPRESSION: 1. ABNORMAL 99m Tc Mebrofenin hepatobiliary imaging examination with fatty meal ingestion. A. A gallbladder ejection fraction calculated to be less than 30% following the administration of an ingested fatty meal is consistent with the presence of functional hepatobiliary disease (gallbladder and/or sphincter of Oddi dyskinesia) and/or organic hepatobiliary disease (chronic acalculous cholecystitis and/or cystic duct syndrome) in patients with intermediate to high pretest probabilities of hepatobiliary illness. (Bev, J Nucl Med 43: 1603, 2002). B. Duodenal-gastric reflux is defined following fatty meal consumption. Electronically Signed: Godfrey Hodge DO at 16:37 EDT Tel , Service support , CC: No Primary Care Physician; Jose Cruz Arroyo MD; Alexander Hernández MD Process Improvement Engineer: Signed OPERATIVE REPORT - Observed: 04/25/2018 Status: F Source: [place] [facility] 7:36 AM [facility] [place] [facility] Medical Records Department [address] [place] [address] Operative Report - Endoscopy MR#: [id number] Acct: [id number] Name: PETER TERAN Rep #: [id number] : 1970 47 From: Jose Cruz Arroyo MD PCP: Care Physician, No Primary Status: ADM IN Patient Name: Peter Teran Procedure Date: 04/25/2018 7:11 AM Date of : 1970 Age: 47 Procedure: Upper GI endoscopy Indications: Epigastric abdominal pain, Upper abdominal pain, Personal history of peptic ulcer disease Providers: Jose Cruz Arroyo MD Medicines: See the Anesthesia note for documentation of the administered medications Patient Profile: Patient has symptoms of acute epigastric abdominal pain, acute nausea and acute vomiting. The symptoms first began within the past few weeks. Complications: No immediate complications. Procedure: Pre-Anesthesia Assessment: - Prior to the procedure, a History and Physical was performed, and patient medications and allergies were reviewed. The patient's tolerance of previous anesthesia was also reviewed. The risks and benefits of the procedure and the sedation options and risks were discussed with the patient. All questions were answered, and informed consent was obtained. Prior Anticoagulants: The patient has taken no previous anticoagulant or antiplatelet agents. ASA Grade Assessment: III - A patient with severe systemic disease. After reviewing the risks and benefits, the patient was deemed in satisfactory condition to undergo the procedure. After obtaining informed consent, the endoscope was passed under direct vision. Throughout the procedure, the patient's blood pressure, pulse, and oxygen saturations were monitored continuously. The gastroscope was introduced through the mouth, and advanced to the second part of duodenum. The upper GI endoscopy was accomplished without difficulty. The patient tolerated the procedure well. Scope In: 7:19:08 AM Scope Out: 7:23:12 AM Total Procedure Duration Time 0 hours 4 minutes 4 seconds Findings: The Z-line was regular and was found 41 cm from the incisors. No biopsies or other specimens were collected for this exam. Localized minimal inflammation characterized by erythema was found in the prepyloric region of the stomach. Biopsies were taken with a cold forceps for Helicobacter pylori testing using PyloriTek test. The examined duodenum was normal. No biopsies or other specimens were collected for this exam. Impression: - Z-line regular, 41 cm from the incisors. No specimens collected. No Hiatal Hernia - Gastritis. Biopsied. - Normal examined duodenum. No specimens collected. Recommendation: - [facility]. - Advance diet as tolerated. - Continue present medications. - Await pathology results. - Repeat upper endoscopy after studies are complete for surveillance based on pathology results. - Perform a HIDA (hepatobiliary iminodiacetic acid) scan with EF today. Procedure Code(s): --- Professional --- 46326, Esophagogastroduodenoscopy, flexible, transoral; with biopsy, single or multiple Diagnosis Code(s): --- Professional --- K29.70, Gastritis, unspecified, without bleeding R10.13, Epigastric pain R10.10, Upper abdominal pain, unspecified Z87.11, Personal history of peptic ulcer disease CPT copyright 2017 [employer]. All rights reserved. The codes documented in this report are preliminary and upon turning machine operator helper review may be revised to meet current compliance requirements. MD Jose Cruz Martinez MD 04/25/2018 7:36:09 AM This report has been signed electronically. Number of Addenda: 0 Note Initiated On: 04/25/2018 7:11 AM 04/25/18 0736 Date Jose Cruz Wilson Signature: Date (if indicated) CC: No Primary Care Physician; Alexander Hernández MD Date Dictated: 04/25/18710 Date Transcribed: Process Improvement Engineer: ARMIN Signed EGD ([facility]) Observed: 04/25/2018 Status: F Source: [place] 7:00 AM [facility] [place] Patient: EPTER TERAN : 1970 (47/F) Acct Num: [id number] Phys: Edgar FRANK,Alexander Unit Num: [id number] Loc: MS3 CV558-0 Specimen: [id number] Received: 04/25/18 0759 Spec Type: EGD BIOPSY TISSUES 1 TISSUES: Gastric mucous membrane COMMENT The results of immunohistochemistry for Helicobacter pylori will be reported separately ([id number]). GROSS DESCRIPTION Received in fixative is one container labeled with the patient's name and designated antral biopsy. The specimen consists of two irregular fragments of light bush soft tissue that in aggregate measure 0.3 x 0.2 x 0.1 cm. The specimen is totally submitted in one cassette. / [place]:gennaro 04/25/18 TC:3 CPT: 64253 HEADER OPERATION[place] [place] DIAGNOSIS: Abdominal pain TISSUE SUBMITTED: Antral biopsy MICROSCOPIC DESCRIPTION Slides are reviewed. The specimen shows fragments of gastric mucosa with chronic inflammatory cell infiltrates in the lamina propria consisting of lymphocytes and plasma cells, consistent with mild chronic gastritis. MICROSCOPIC DIAGNOSIS Antral biopsy: Mild gastritis. See microscopic description and comment. SJ:gennaro 04/26/18 Signed Misael Martin 04/26/18 <signature on file> Performed By: #### PEGD #### [place] [facility] [place] [place] [facility] [address] [place], [address] CBC W/DIFF, AUTOMATED Collected: 04/25/2018 Status: F Source: [place] 5:25 AM [facility] [place] TYPE CODE TESTS RESULT OUT OF RANGE REFERENCE UNITS LAB L100.1000 4.4-11.0 K/mm3 Normal WBC 5.4 LAB L100.1200 4.2-5.4 M/mm3 Low RBC 3.65 LAB L100.1300 12.0-15.0 g/dl Low HGB 11.8 LAB L100.1400 37-47 % Low HCT 35.4 LAB L100.1500 81-99 fL Normal MCV 97.0 LAB L100.1600 27.0-32.0 pg High MCH 32.3 LAB L100.1700 32-36 g/gl Normal MCHC 33.3 LAB L100.1810 11.6-14.6 % Normal RDW CV 13.1 LAB L100.1820 35.1-43.9 fl High RDW SD 45.0 LAB L100.1900 150-450 K/mm3 Normal PLT 218 LAB L100.2000 6.2-12.0 fl Normal MPV 10.3 LAB L100.2100 47-70 % Normal NEUT% 59.0 LAB L100.2200 19-41 % Normal LY% 27.4 LAB L100.2300 0-10 % High MONO% 10.4 LAB L100.2400 0-5 % Normal EO% 2.4 LAB L100.2500 0-1 % Normal BASO% 0.6 LAB L100.2550 0.0-0.9 % Normal IM GRAN % 0.200 Result Comment: IG% - Immature Granulocytes (promyelocytes, myelocytes and metamyelocytes) > 1% indicates that a LEFT SHIFT is Present. LAB L100.2620 2.0-7.7 X10 3/uL Normal Absolute Neut 3.2 LAB L100.2720 0.83-4.51 X10 3/ul Normal Absolute Lymph 1.48 Performed By: #### L100.0100 #### [facility] [address] [place], [place], [id number] COMPREHENSIVE METABOLIC Collected: 04/25/2018 Status: F Source: [place] [facility] 5:25 AM [facility] [place] TYPE CODE TESTS RESULT OUT OF RANGE REFERENCE UNITS LAB L501.0100 74-106 mg/dL Low alert GLU 43 Result Comment: Critical Result(s) Called at: 07:00:49 04/25/2018 by: Jocelin Shaffer to Ming Glucose result less than 50 mg/dL suggests HYPOGLYCEMIA. Please note revised GLUCOSE reference range effective 2017. LAB L501.1000 7-18 mg/dL Low BUN 4 LAB L501.1100 0.55-1.02 mg/dL Low CREAT,SERUM 0.52 Result Comment: The validity of the calculated GFR AND GFRAA in patients over 70 years has not been determined. Clinical correlation is essential. LAB L501.1110 >60 mL/min Normal EST GFR 134 Result Comment: Non- GFR Calc LAB L501.1115 >60 mL/min Normal EST GFR - AA 162 Result Comment: GFR Calc LAB L501.1255 ml/min Normal Estimated CRCL 110.64 LAB L501.1300 10-20 RATIO Low BUN/CRE 7.7 LAB L501.1500 6.4-8. g/dL Low 2 T PROT 5.8 LAB L501.1800 3.2-5. g/dL Low 0 ALB 2.5 LAB L501.1950 2.2-4. g/dL 2 GLOB Normal 3.3 LAB L501.2000 0.9-2. RATIO Low 4 A/G 0.8 LAB L501.2200 8.5-10 mg/dL Low .1 CA 8.1 LAB L501.4100 15-37 U/L Low AST 12 LAB L501.4305 45-117 U/L ALK P Normal 89 LAB L501.4405 13-56 U/L ALT Normal 17 LAB L501.4600 0.20-1 mg/dL .00 T BILI Normal 0.40 LAB L501.5300 136-14 mmol/L 5 NA Normal 141 LAB L501.5600 3.5-5. mmol/L 1 K Normal 3.7 LAB L501.5900 98-107 mmol/L High CL 110 LAB L501.6100 21.0-3 mmol/L Low 2.0 CO2 17.0 LAB L501.6200 5-15 GAP Normal 14 Performed By: #### L500.4050, L501.2450 #### [facility] [address] [place], [address] LIPASE Collected: 04/25/2018 Status: F Source: [place] 5:25 AM [facility] [place] TYPE CODE TESTS RESULT OUT OF REFERENCE UNITS RANGE LAB L501.2450 73-393 U/L High LIPASE 771 Performed By: #### L500.4050, L501.2450 #### [facility] [address] [place], [place] [address]. [place], [address] IMMUNOHISTOCHEMISTRY Observed: 04/25/2018 Status: F Source: [place] 12:00 AM [facility] [place] Patient: PETER TERAN : 1970 (47/F) Acct Num: [id number] Phys: Kesha Mccollum MD Unit Num: [id number] Loc: MS3 [id number] Specimen: [id number] Received: 04/26/18 - 1111 Spec Type: IMMUNO TISSUES 1 TISSUES: Stomach, NOS SPECIMEN INFORMATION: Tissue Source: Antral biopsy Clinical Info: Abdominal pain Specimen Number: [id number] CPT code: 69393 METHODOLOGY: Deparaffinized sections of prefer/formalin-fixed tissue or PAP/DQ stained slides are incubated with monoclonal/polyclonal antibodies/oligonucleotide probes. Localization is made via biotin free immunoperoxidase method. Appropriate controls are performed and reacted as expected. Results on target cell population are indicated in the following table: RESULTS: ANTIBODY / CLONE RESULT H Pylori (polyclonal) positive These tests were developed and their performance characteristics determined by [facility]. They may not have been cleared or approved by the U.S. Food and Drug Administration. The FDA has determined that such clearance or approval is not necessary. INTERPRETATION: Antral biopsy: Positive for Helicobacter pylori organisms. SJ:gennaro 04/29/18 PHYSICIAN AND INSTITUTION [address] [address] Signed Misael Martin 04/29/18 <signature on file> Performed By: #### PIMM #### [facility] [address] [place] [address]. [place], [address] CONSULTATION Observed: 04/24/2018 Status: F Source: [place] 3:52 PM [facility] [place] [facility] Medical Records Department [address] [place] [address] Consultation 04/24/18 1305 MR#: [id number] Acct: [id number] Name: PETER TERAN Rep #: [id number] : 1970 47 From: Samantha Wolfe PA-C PCP: Care Physician, No Primary Status: ADM IN Y [facility] List (1) Pancreatitis, acute Status: Acute Reason for Consult Date of Consultation: 04/24/18 Reason for Consultation: Acute pancreatitis History of Present Illness: The patient is a 47 year old F who presents with a 3 week history of waxing and waning abdominal pain, nausea, vomiting and diarrhea. Patient notes her symptoms started on . She was at a family picnic on Sunday where they had food and 3 beers on a hot day. Patient noted the following day, Sunday, she was noted her symptoms started. She thought possibly having the flu or heat exhaustion. Patient noted her abdominal pain was more upper abdomen on the right and left upper quadrants. Patient noted she waited for 1 1/2 weeks before reaching out to her PCP who recommended coming to the ED. She had a CT scan of the abdomen/pelvis on 04/11 which was unremarkable as well as her lab work. She was given 10 narcotic pain medications and Prilosec. Patient noted this did not help. Patient noted she was recommended to follow-up with Dr. Turpin. She was evaluated in the office by him on 04/17. He recommended a RUQ u/s. She was sent to the ED where the RUQ u/s was completed and was unremarkable. She noted labs were obtained and were unremarkable except for her potassium being low. She was given oral potassium. Patient was also scheduled to see gastroenterology on 05/22 for upper and lower scopes. Patient's abdominal pain continued and she presented to the ED. Patient noted on Sunday she had Ramen noodles for lunch and she noted abdominal pain right away. Patient noted she was able to eat veggie broth for dinner and tolerated that well. Patient noted in the middle of the night the abdominal pain woke her from sleep. Patient noted oily yellowish stools. Patient notes she has had a 10 pound weight loss since the start of her symptoms. She has not had much of an appetite. Patient smokes 1 ppd since a teenager. She notes at least 6 beers per week or more. Repeat RUQ u/s yesterday was unremarkable. Her lipase level was elevated at 1139 down to 985. WBC 12.1-->5.8, Hgb 12.2, Hct 35.8, plt 216. Liver enzymes unremarkable. C diff was negative. Past Medical History Past Medical History (Chronic Problems): Chronic Problems (Last Reviewed 04/24/18 @ 15:43 by Samantha Wolfe PA-C) Peptic ulcer disease (Chronic) GERD (gastroesophageal reflux disease) (Chronic) Cervical disc disorder (Chronic) Abdominal pain (Chronic) Hypertension (Chronic) Medical History: Medical History (Last Reviewed 04/24/18 @ 15:43 by Samantha Wolfe PA-C) Arthritis M19.90 Back pain M54.9 Neck pain M54.2 Raynauds disease I73.00 Shoulder pain M25.519 Hypertension I10 Allergies cyclobenzaprine HCl [From Flexeril] Adverse Reaction (Verified 04/23/18 06:04) UNABLE TO FUNCTION ON MED hydromorphone HCl [From Dilaudid] Adverse Reaction (Verified 04/23/18 06:04) Nausea Penicillins Adverse Reaction (Verified 04/23/18 06:04) YEAST INFECTION Home Medications: Ambulatory Orders Medication Instructions Recorded Hydrocodone Bitart/Apap 5-325 1 tab PO Q6H PRN PRN 3 Days #10 tab 04/11/18 Surgical History: Surgical History (Last Reviewed 04/24/18 @ 15:44 by Samantha Wolfe PA-C) Hx of cervical spine surgery Z98.890 Surgical History: - - Multiple cervical and lumbar surgeries Psychiatric History: Depression 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 AND 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 History: No pertinent 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 AND PRESSER history Lives: Spouse/ Significant Other Smoking Status: Current every day smoker Tobacco Use: Cigarettes Alcohol: Heavy - 6 beers or more per week Drugs: None - *Family History Maternal Family History: Family History (Last Reviewed 04/24/18 @ 15:45 by Samantha Wolfe PA-C) Other Cancer Diabetes Heart disease History Items: No pertinent history - Denies family history of irritable bowel syndrome Review of Systems Constitutional: Reports: Anorexia, Weight Change, Fatigue HEENT: Denies: Head Aches, Sinus Congestion, Sinus Drainage Cardiovascular: Denies: Chest Pain, Palpitations Respiratory: Denies: Cough, Shortness of breath at rest, Sputum production Gastrointestinal: Reports: Abdominal Pain, Diarrhea, Nausea, Vomiting Genitourinary: Denies: Dysuria Musculoskeletal: Reports: Back Pain, Neck Pain. Denies: Joint Pain, Joint Tenderness Skin: Denies: Rash, Wounds Neurological: Denies: Numbness, Tingling, Focal weakness Psychiatric: Reports: Depression Hematologic/ Lymphatic: Denies: Easy Bruising, Easy Bleeding Patient Problems: Active and Suspected Problems (Last Reviewed 04/24/18 @ 15:43 by Samantha Wolfe PA-C) Chronic diarrhea (Acute) Pancreatitis, acute (Acute) - Physical Exam General: Alert, Oriented x3, Cooperative HEENT: Atraumatic, PERRLA, EOMI, Normocephalic Neck: Supple, No JVD, Negative Carotid Bruits Lungs: Clear to auscultation, Normal air movement Cardiovascular: Regular rate, No murmurs Abdomen: Bowel Sounds Present, Soft, Tender - Upper abdomen; RUQ and LUQ Extremities: No edema, Capillary Refill Less than 3 Seconds Skin: No rashes, No breakdown Musculoskeletal: No Tenderness to Palpation of Joints or Extremities Neurological: Neuro grossly intact Psych/Mental Status: - - Tearful Vital Signs Temp Pulse Resp BP Pulse Ox 98.1 F 71 18 144/83 H 100 04/24/18 08:58 04/24/18 08:58 04/24/18 08:58 04/24/18 08:58 04/24/18 08:58 Oxygen Delivery Method Room Air Weight: 150 lb 9.211 oz Body Mass Index (BMI) 26.6 Intake and Output for Last 24 Hours Intake Total 1018 / 1018 2299 / 2299 Output Total 441 / 441 Balance 577 / 577 2299 / 2299 Microbiology Past 72 Hours 04/23/18 12:35 C. difficile DNA Amplification - Final Stool Laboratory Tests Past 24 Hrs WBC 5.8 RBC 3.71 L Hgb 12.2 Hct 35.8 L MCV 96.5 MCH 32.9 H MCHC 34.1 RDW 13.2 Assessment/Plan All Active Problems (Last Reviewed 04/24/18 @ 15:43 by Samantha Wolfe PA-C) Chronic diarrhea (Acute) Pancreatitis, acute (Acute) Infected dental caries (Acute) I have been consulted in conjunction with Dr. Arroyo. Impression: Acute pancreatitis. Upper abdominal pain Plan: I have discussed this patient with Dr. Arroyo. Recommend MRCP. Dr. Arroyo will plan to perform an upper scope with possible biopsies tomorrow morning. Procedure details, risks and benefits have been reviewed with the patient. Patient has had the opportunity to ask and have questions answered. Patient verbally understands and agrees to the plan. Thank you for allowing me to participate in this patient's care. My recommendations will be available via electronic medical records. Code Visit Office Visits / Consults: [id number] IP Consult L3 04/24/18 1552 <Electronically signed by aSmantha Wolfe PA-C> Date Samantha Wolfe PA-C Cosigner Signature (if applicable): Date CC: No Primary Care Physician; Jeronimo Turpin MD; Stephenie Hinson MD Signed MRCP ABDOMEN WITHOUT Observed: 04/24/2018 Status: F Source: [place] CONTRAST 1:04 PM [facility] [place] [facility] Imaging Services [address] [place] [address] MRCP Abdomen without Contrast MR#: [id number] Acct: [id number] Name: PETER TERAN Rep #: [id number] : 1970 F 47 From: Johan Ching MD PCP: Care Physician, No Primary Status: ADM IN Study: MRCP Abdomen without Contrast Date of Exam: 04/24/18 Exam# [id number] Ordering Dr: Samantha Wolfe PA-C ADDENDUM by Johan Ching on 04/25/18 at 1640 ADDENDUM STUDY: MR CHOLANGIOPANCREATOGRAPHY (MRCP) REASON FOR EXAM: Female, 47 years old. Abd pain, n/v/d, elevated lipase TECHNIQUE: Standard MRCP technique was utilized. 3D POST PROCESSING WAS OBTAINED. COMPARISON: Abdomen/Pelvis ct of Apr 11 2018 4:42pm FINDINGS: Gall Bladder: Normal with no distention or demonstrated fixed intraluminal filling defect. Cystic duct: Normal with no demonstrated fixed filling defect. Intrahepatic ducts: Normal visualized intrahepatic ducts with no demonstrated fixed filling defect, dilation or stricture. Common hepatic duct: Normal with no demonstrated fixed filling defect, dilation or stricture. Common bile duct: Normal with no demonstrated fixed filling defect, dilation or stricture. Pancreatic duct: Normal with no demonstrated fixed filling defect, dilation or stricture. 04/25/18 1640 Date cc: No Primary Care Physician; Samantha Wolfe PA-C * Signed ADDENDUM by Johan Ching on 04/25/18 at 1640 MRI/MRCP Abdomen without Contrast IMPRESSION: Normal MR Cholangiopancreatography (MRCP). Electronically Signed: Johan Ching MD at 16:40 EDT , Service support , 04/25/18 1647 Date cc: No Primary Care Physician; Samantha Wolfe PA-C * Signed STUDY: MR CHOLANGIOPANCREATOGRAPHY (MRCP) REASON FOR EXAM: Female, 47 years old. Abd pain, n/v/d, elevated lipase TECHNIQUE: Standard MRCP technique was utilized. COMPARISON: Abdomen/Pelvis ct of Apr 11 2018 4:42pm FINDINGS: Gall Bladder: Normal with no distention or demonstrated fixed intraluminal filling defect. Cystic duct: Normal with no demonstrated fixed filling defect. Intrahepatic ducts: Normal visualized intrahepatic ducts with no demonstrated fixed filling defect, dilation or stricture. Common hepatic duct: Normal with no demonstrated fixed filling defect, dilation or stricture. Common bile duct: Normal with no demonstrated fixed filling defect, dilation or stricture. Pancreatic duct: Normal with no demonstrated fixed filling defect, dilation or stricture. MRI/MRCP Abdomen without Contrast IMPRESSION: Normal MR Cholangiopancreatography (MRCP). Electronically Signed: Johan Ching MD at 19:34 EDT , Service support , CC: No Primary Care Physician; Samantha Wolfe PA-C Process Improvement Engineer: Signed CBC W/DIFF, AUTOMATED Collected: 04/24/2018 Status: F Source: [place] 5:30 AM [facility] [place] TYPE CODE TESTS RESULT OUT OF RANGE REFERENCE UNITS LAB L100.1000 4.4-11.0 K/mm3 Normal WBC 5.8 LAB L100.1200 4.2-5.4 M/mm3 Low RBC 3.71 LAB L100.1300 12.0-15.0 g/dl Normal HGB 12.2 LAB L100.1400 37-47 % Low HCT 35.8 LAB L100.1500 81-99 fL Normal MCV 96.5 LAB L100.1600 27.0-32.0 pg High MCH 32.9 LAB L100.1700 32-36 g/gl Normal MCHC 34.1 LAB L100.1810 11.6-14.6 % Normal RDW CV 13.2 LAB L100.1820 35.1-43.9 fl Normal RDW SD 43.9 LAB L100.1900 150-450 K/mm3 Normal PLT 216 LAB L100.2000 6.2-12.0 fl Normal MPV 10.4 LAB L100.2100 47-70 % Normal NEUT% 48.9 LAB L100.2200 19-41 % Normal LY% 37.3 LAB L100.2300 0-10 % High MONO% 10.9 LAB L100.2400 0-5 % Normal EO% 2.4 LAB L100.2500 0-1 % Normal BASO% 0.3 LAB L100.2550 0.0-0.9 % Normal IM GRAN % 0.200 Result Comment: IG% - Immature Granulocytes (promyelocytes, myelocytes and metamyelocytes) > 1% indicates that a LEFT SHIFT is Present. LAB L100.2620 2.0-7.7 X10 3/uL Normal Absolute Neut 2.8 LAB L100.2720 0.83-4.51 X10 3/ul Normal Absolute Lymph 2.16 Performed By: #### L100.0100 #### [facility] [address] [place], [address] BASIC METABOLIC Collected: 04/24/2018 Status: F Source: [place] PROFILE (BMP) 5:30 AM [facility] [place] TYPE CODE TESTS RESULT OUT OF RANGE REFERENCE UNITS LAB L501.0100 74-106 mg/dL Normal GLU 77 Result Comment: Please note revised GLUCOSE reference range effective 2017. LAB L501.1000 7-18 mg/dL Low BUN 6 LAB L501.1100 0.55-1.02 mg/dL Normal CREAT,SERUM 0.58 Result Comment: The validity of the calculated GFR AND GFRAA in patients over 70 years has not been determined. Clinical correlation is essential. LAB L501.1110 >60 mL/min Normal EST GFR 117 Result Comment: Non- GFR Calc LAB L501.1115 >60 mL/min Normal EST GFR - AA 142 Result Comment: GFR Calc LAB L501.1255 ml/min Normal Estimated CRCL 99.19 LAB L501.1300 10-20 RATIO Normal BUN/CRE 10.3 LAB L501.2200 8.5-10 mg/dL Low .1 CA 8.3 LAB L501.5300 136-14 mmol/L Normal 5 NA 143 LAB L501.5600 3.5-5. mmol/L Normal 1 K 3.5 LAB L501.5900 98-107 mmol/L High CL 111 LAB L501.6100 21.0-3 mmol/L Normal 2.0 CO2 25.0 LAB L501.6200 5-15 Normal GAP 7 Performed By: #### L500.2500, L501.2450 #### [facility] [address] [place], [address] LIPASE Collected: 04/24/2018 Status: F Source: [place] 5:30 AM [facility] [place] TYPE CODE TESTS RESULT OUT OF REFERENCE UNITS RANGE LAB L501.2450 73-393 U/L High LIPASE 985 Performed By: #### L500.2500, L501.2450 #### [facility] [address] [place], [address] Observed: 04/23/2018 Status: F Source: [place] CDIFF (MOLECULAR) 12:35 PM [facility] [place] Is the patient receiving laxatives? N New/unexplained onset of 3 or more stools in past 24 hrs? Y Cdiff-Molecular C. Diff DNA Negative- No toxigenic C. Diff DNA Detected NAAT METHOD Testing was performed using nucleic acid amplification Performed By: #### M100.6796 #### [facility] [address] [place], [address] ABDOMEN LIMITED Observed: 04/23/2018 Status: F Source: [place] 8:44 AM [facility] [place] [facility] Imaging Services [address] [place] [address] Abdomen Limited MR#: [id number] Acct: [id number] Name: PETER TERAN Rep #: [id number] : 1970 F 47 From: Dany Huertas MD PCP: Care Physician, No Primary Status: ADM IN Study: Abdomen Limited Date of Exam: 04/23/18 Exam# [id number] Ordering Dr: Alexander Hernández MD STUDY: ABDOMINAL ULTRASOUND - RIGHT UPPER QUADRANT REASON FOR VISIT: Female, 47 years old. Right upper quadrant pain and elevated lipase levels. TECHNIQUE: Ultrasound evaluation of the right upper quadrant was performed with real-time and static heard-scale imaging. TECHNICAL QUALITY: Adequate. COMPARISON: Comparison is made with prior ultrasound of the abdomen dated April 17, 2018. FINDINGS: Liver: The liver measures 15.0 cm. There is normal echogenicity of the liver. The bile ducts are within normal limits. There is hepatic color flow. The direction of portal flow is hepatopetal. There is no demonstrated mass lesion. Gallbladder: Normal distended gallbladder. The gallbladder wall measures 1.8 mm. There is a negative sonographic Macdonald's sign. There is no pericholecystic fluid. There are no gallstones. Common Bile Duct (C.B.D.): The common bile duct measures 3.7 mm. Pancreas: Normal size of the head, body and tail of the pancreas. There is normal echogenicity of the pancreas. There is no demonstrated pancreatic mass or cyst. Right Kidney: Normal size of the right kidney. The right kidney measures 10.1 cm x 4.6 cm x 4.3 cm. Normal renal cortex. The right cortex measures 1.4 cm. There is no demonstrated renal mass or cyst. There is no right hydronephrosis. US/Abdomen Limited IMPRESSION: Normal right upper quadrant ultrasound examination. Electronically Signed: Dany Huertas MD at 13:13 EDT Tel [phone], Service support , CC: No Primary Care Physician; Alexander Hernández MD Process Improvement Engineer: Signed HISTORY AND PHYSICAL Observed: 04/23/2018 Status: F Source: [place] EXAM 8:24 AM [facility] [place] [facility] Medical Records Department [address] [place] [address] History and Physical 04/23/18 0721 MR#: [id number] Acct: [id number] Name: PETER TERAN Rep #: [id number] : 1970 47 From: Alexander Hernández MD PCP: Care Physician, No Primary Status: ADM IN Y Location: MS3 [id number] Problem List (1) Peptic ulcer disease Status: Chronic (2) GERD (gastroesophageal reflux disease) Status: Chronic (3) Cervical disc disorder Status: Chronic (4) Abdominal pain Status: Chronic (5) Chronic diarrhea Status: Acute (6) Hypertension Status: Chronic History of Present Illness Date of Admission: 04/23/18 Chief Complaint: Abdominal pain, nausea, vomiting and diarrhea for about 6 weeks The patient is a 47 year old F with history of chronic cervical disc degeneration/herniation status post cervical spine surgery, possible PUD/GERD on PPI recently came to ER with abdominal pain, nausea and vomiting and diarrhea on and off for last 6 weeks. This is her third ER visit since 04/11/2015. Earlier patient was seen by Dr. Turpin in office and had [] Earlier CT abdomen and ultrasound the liver which reported as normal. Patient describes abdominal pain and cramps with waxing and waning in nature, sometimes very severe colicky nature but is still some pain remains after episode is over. Patient has nausea, vomiting and dry heaving, cleansed with a 15-20 times per day intermittently for last 6 weeks along with diarrhea which is loose, watery without blood. Denies GI bleed. Patient has appointment with Dr. Bolivar 05/22. In ED significant abnormal lab was lipase 1139. On previous occasions it was normal. Mild hypokalemia, K3.4. Mild leukocytosis 12,000. Past Medical History Past Medical History (Chronic Problems): Chronic Problems (Last Reviewed 04/17/18 @ 10:11 by Doris Ram) Peptic ulcer disease (Chronic) GERD (gastroesophageal reflux disease) (Chronic) Cervical disc disorder (Chronic) Abdominal pain (Chronic) Hypertension (Chronic) Medical History: Medical History (Last Reviewed 04/17/18 @ 10:11 by Doris Ram) Arthritis M19.90 Back pain M54.9 Neck pain M54.2 Raynauds disease I73.00 Shoulder pain M25.519 Hypertension I10 Allergies cyclobenzaprine HCl [From Flexeril] Adverse Reaction (Verified 04/23/18 06:04) UNABLE TO FUNCTION ON MED hydromorphone HCl [From Dilaudid] Adverse Reaction (Verified 04/23/18 06:04) Nausea Penicillins Adverse Reaction (Verified 04/23/18 06:04) YEAST INFECTION Home Medications: Ambulatory Orders Medication Instructions Recorded Hydrocodone Bitart/Apap 5-325 1 tab PO Q6H PRN PRN 3 Days #10 tab 04/11/18 Surgical History: Surgical History (Last Reviewed 04/17/18 @ 10:11 by Doris Ram) Hx of cervical spine surgery Z98.890 Smoking Status: Current every day smoker - *Family History Maternal Family History: Family History (Last Reviewed 04/17/18 @ 10:11 by Doris Ram) Other Cancer Diabetes Heart disease History Items: No pertinent history - Denies family history of irritable bowel syndrome Review of Systems Constitutional: Reports: Malaise, Weakness, Fatigue. Denies: Chills, Fever, Weight Change HEENT: Denies: Head Aches, Sinus Congestion, Sinus Drainage Cardiovascular: Denies: Chest Pain, Palpitations Respiratory: Denies: Cough, Shortness of breath at rest, Sputum production Gastrointestinal: Reports: Abdominal Pain, Diarrhea, Nausea, Vomiting. Denies: Hematemesis, Hematochezia, Melena Genitourinary: Denies: Dysuria Musculoskeletal: Reports: Neck Pain. Denies: Joint Pain, Joint Tenderness Skin: Denies: Rash, Wounds Neurological: Denies: Numbness, Tingling, Focal weakness Psychiatric: Reports: Anxiety. Denies: Depression, Homicidal Ideations, Suicidal Ideations Hematologic/ Lymphatic: Denies: Easy Bruising, Easy Bleeding VTE Information - Inpt Only VTE Present on Admission: No VTE Mechan Device Prophylaxis: None VTE Pharm Prophylaxis ordered?: Yes Patient Problems: Active and Suspected Problems (Last Reviewed 04/17/18 @ 10:11 by Doris Ram) Chronic diarrhea (Acute) - Physical Exam General: Alert, Oriented x3, Cooperative HEENT: Atraumatic, PERRLA, EOMI, Normocephalic Neck: Supple, No JVD, Negative Carotid Bruits Lungs: Clear to auscultation, Normal air movement Cardiovascular: Regular rate, Regular Rhythm, Normal S1, Normal S2, No murmurs Abdomen: Bowel Sounds Present, Soft, Non Tender, Non-Distended Extremities: No edema, Capillary Refill Less than 3 Seconds Skin: No rashes, No breakdown Musculoskeletal: No Tenderness to Palpation of Joints or Extremities, Arthritic Changes Neurological: Cranial nerves II-XII grossly intact Psych/Mental Status: Normal Affect, Appropriate Vital Signs Temp Pulse Resp BP 98.1 F 144 H 20 H 136/100 H 04/23/18 05:59 04/23/18 05:59 04/23/18 05:59 04/23/18 05:59 Weight: 156 lb Body Mass Index (BMI) 27.6 Laboratory Tests Past 24 Hrs WBC 12.1 H RBC 4.77 Hgb 15.7 H Hct 44.1 MCV 92.5 Assessment/Plan All Active Problems (Last Reviewed 04/17/18 @ 10:11 by Doris Ram) Chronic diarrhea (Acute) Infected dental caries (Acute) The patient is a 47 year old F with history of chronic cervical disc degeneration/herniation status post cervical spine surgery, possible PUD/GERD on PPI recently came to ER with abdominal pain, nausea and vomiting and diarrhea on and off for last 6 weeks. This is her third ER visit since 04/11/2015. Earlier patient was seen by Dr. Turpin in office and had [] Earlier CT abdomen and ultrasound the liver which reported as normal. Patient describes abdominal pain and cramps with waxing and waning in nature, sometimes very severe colicky nature but is still some pain remains after episode is over. Patient has nausea, vomiting and dry heaving, cleansed with a 15-20 times per day intermittently for last 6 weeks along with diarrhea which is loose, watery without blood. Denies GI bleed. Patient has appointment with Dr. Bolivar 05/22. In ED significant abnormal lab was lipase 1139. On previous occasions it was normal. Mild hypokalemia, K3.4. Mild leukocytosis 12,000. 1. Possible acute pancreatitis; exact etiology unclear: Patient has lipase 1139 which is 3 times upper limit normal but lipase elevation >3 ULN has been found from bowel sources, hepatobiliary pathology and gastric sources although evidence do not suggest that. Pancreas was reported normal. CBD measures 2 mm. Normal external gallbladder with GB wall 2 mm in recent right upper quadrant sonogram and 04/17. But at that time, lipase was normal at 147. Patient has accepted drinking alcohol on weekends but denies heavy drinking. Keep the patient n.p.o. patient had 2 L of normal saline bolus in ED. Continue IV fluid normal saline at 150 mL/h. General surgery Dr. Turpin consult for further opinion. 2. Acute abdominal pain, with nausea, vomiting and diarrhea; etiology unclear possible irritable bowel syndrome: Enteric bacteriology panel and stool lactoferrin are negative. I think given patient pain is subsided will need upper and lower GI endoscopy. Stool for C. difficile ordered. 3. Other chronic comorbidities include cervical disc degeneration/discitis status post surgery, GERD/possible PUD, hypertension, home medication reconciliation done. Code Visit Inpatient E AND M: [id number] Init Hosp L3 04/23/18 0824 <Electronically signed by Alexander Hernández MD> Date Alexander Hernández MD Cosigner Signature: Date (if applicable) CC: No Primary Care Physician; Alexander Hernández MD Signed CBC W/DIFF, AUTOMATED Collected: 04/23/2018 Status: F Source: [place] 6:20 AM [facility] [place] TYPE CODE TESTS RESULT OUT OF RANGE REFERENCE UNITS LAB L100.1000 4.4-11.0 K/mm3 High WBC 12.1 LAB L100.1200 4.2-5.4 M/mm3 Normal RBC 4.77 LAB L100.1300 12.0-15.0 g/dl High HGB 15.7 LAB L100.1400 37-47 % Normal HCT 44.1 LAB L100.1500 81-99 fL Normal MCV 92.5 LAB L100.1600 27.0-32.0 pg High MCH 32.9 LAB L100.1700 32-36 g/gl Normal MCHC 35.6 LAB L100.1810 11.6-14.6 % Normal RDW CV 13.1 LAB L100.1820 35.1-43.9 fl Normal RDW SD 43.0 LAB L100.1900 150-450 K/mm3 Normal PLT 332 LAB L100.2000 6.2-12.0 fl Normal MPV 10.0 LAB L100.2100 47-70 % High NEUT% 71.8 LAB L100.2200 19-41 % Normal LY% 19.9 LAB L100.2300 0-10 % Normal MONO% 6.2 LAB L100.2400 0-5 % Normal EO% 1.7 LAB L100.2500 0-1 % Normal BASO% 0.2 LAB L100.2550 0.0-0.9 % Normal IM GRAN % 0.200 Result Comment: IG% - Immature Granulocytes (promyelocytes, myelocytes and metamyelocytes) > 1% indicates that a LEFT SHIFT is Present. LAB L100.2620 2.0-7.7 X10 3/uL High Absolute Neut 8.7 LAB L100.2720 0.83-4.51 X10 3/ul Normal Absolute Lymph 2.41 Performed By: #### L100.0100 #### [facility] [address] [place], [address] BASIC METABOLIC Collected: 04/23/2018 Status: F Source: [place] PROFILE (BMP) 6:20 AM [facility] [place] TYPE CODE TESTS RESULT OUT OF RANGE REFERENCE UNITS LAB L501.0100 74-106 mg/dL High GLU 130 Result Comment: Fasting Glucose result greater than or equal to 126 mg/dL suggests DIABETES MELLITUS per A.D.A. criteria. Please note revised GLUCOSE reference range effective 2017. LAB L501.1000 7-18 mg/dL Normal BUN 7 LAB L501.1100 0.55-1.02 mg/dL Normal CREAT,SERUM 0.81 Result Comment: The validity of the calculated GFR AND GFRAA in patients over 70 years has not been determined. Clinical correlation is essential. LAB L501.1110 >60 mL/min Normal EST GFR 80 Result Comment: Non- GFR Calc LAB L501.1115 >60 mL/min Normal EST GFR - AA 97 Result Comment: GFR Calc LAB L501.1255 ml/min Normal Estimated CRCL 71.03 LAB L501.1300 10-20 RATIO Low BUN/CRE 8.6 LAB L501.2200 8.5-10 mg/dL Normal .1 CA 9.5 LAB L501.5300 136-14 mmol/L Normal 5 NA 138 LAB L501.5600 3.5-5. mmol/L Low 1 K 3.4 LAB L501.5900 98-107 mmol/L Normal CL 105 LAB L501.6100 21.0-3 mmol/L Normal 2.0 CO2 23.0 LAB L501.6200 5-15 Normal GAP 10 Performed By: #### L500.2500, L500.3400, L501.2450 #### [facility] [address] [facility] [place], [address] LIVER PROFILE Collected: 04/23/2018 Status: F Source: [place] 6:20 AM [facility] [place] TYPE CODE TESTS RESULT OUT OF RANGE REFERENCE UNITS LAB L501.1500 6.4-8.2 g/dL Normal T PROT 7.7 LAB L501.1800 3.2-5.0 g/dL Normal ALB 3.6 LAB L501.1950 2.2-4.2 g/dL Normal GLOB 4.1 LAB L501.4100 15-37 U/L Normal AST 16 LAB L501.4305 45-117 U/L High ALK P 129 LAB L501.4405 13-56 U/L Normal ALT 30 LAB L501.4600 0.20-1.00 mg/dL Normal T BILI 0.50 LAB L501.4700 0.00-0.30 mg/dL Normal D BILI 0.14 Performed By: #### L500.2500, L500.3400, L501.2450 #### [facility] [address] [place], [address] LIPASE Collected: 04/23/2018 Status: F Source: [place] 6:20 AM [facility] [place] TYPE CODE TESTS RESULT OUT OF REFERENCE UNITS RANGE LAB L501.2450 73-393 U/L High LIPASE 1139 Performed By: #### L500.2500, L500.3400, L501.2450 #### [facility] [address] [place], [address] EMERGENCY DEPARTMENT Observed: 04/17/2018 Status: F Source: [place] SUMMARY 4:23 PM [facility] [place] [facility] Medical Records Department [address] [place] [address] Emergency Department Summary 04/17/18 1355 MR#: [id number] Acct: [id number] Name: PETER TERAN Rep #: [id number] : 1970 47 From: Jose rCuz Bain DO PCP: Care Physician, No Primary Status: DEP ER - ER Visit Summary Date of Service: 04/17/18 Chief Complaint: Abdominal pain History of Present Illness: The patient is a 47 F who was sent to the emergency room by Dr. Turpin. He was seen here in follow-up from an ER visit last week. The patient states that since weekend she has been having 20 diarrheal episodes are more a day as well as nausea vomiting. Last week in the emergency room she had blood work and a CT of the abdomen pelvis are essentially negative. She was sent to the ER for gallbladder evaluation. She initially denies any camping but then states that she was staying in a camper on some property with well water but the well water was deemed safe. Denies any rashes. No blood in the diarrhea. No fevers. Pain is constant but comes in waves. Physical Examination: Afebrile vital signs are stable Gen: Well-nourished well-developed Head: Normocephalic atraumatic Eyes: Perrl EOMI ENT: TMs clear no rhinorrhea moist mucous membranes Neck: Supple no lymphadenopathy no JVD nontender CVS: Regular rate rhythm no murmurs normal S1-S2 Respiratory: No distress clear to auscultation bilaterally chest nontender Abdomen: Soft diffusely tender to palpation more severe in the epigastrium nondistended normal bowel sounds no masses Back: Nontender Extremity: Nontender no edema Skin: Normal color no rash Neuro: alert orientated 3 CN II-XII intact normal strength sensation reflexes gait cerebellar Psych: Normal affect normal mood Test Results: CBC CMP and lipase were normal. Gallbladder ultrasound showed negative Macdonald's no sludge or stone and a 2 mm gallbladder wall without pericholecystic fluid. Emergency Department Course and Treatment: Patient received Bentyl and fluids. She patient was asked to provide stool specimen. When she went she had formed stool. She states this is the first that she has had. Her surgeon to come to the emergency room speak with the patient. This point I am going to write Bentyl and have her follow- up with gastroenterology return if worsening Impression: 1. Abdominal pain This note was generated with [employer] dictation software. It may contain incorrect words, spelling, and punctuation that were not noted in review of the chart prior to signing ED Disposition - Plan for ED Patient: Disposition: Home or Assisted Living Chief Complaint: Abd Pain Instructions: ED Abdominal Pain Unkn Cause Prescriptions: Dicyclomine HCl [Bentyl] 10 mg PO 4X/DAY PRN #12 cap PRN Reason: abdominal pain Referrals: Kamaljit Bolivar MD [NON-STAFF] - (call to arrange gastroenterology appointment) What to do if you have Problems For any increased pain, shortness of breath, bleeding, nausea or vomiting, chest pain, or any unexpected problems, contact your Primary Care Provider. Call [facility] ([phone]) or report to the closest Emergency Room. Call 911 if necessary. 04/17/18 1622 <Electronically signed by Jose Cruz Bain DO> Date Jose Cruz Bain DO Cosigner Signature (If Indicated): Date CC: No Primary Care Physician STOOL Observed: 04/17/2018 Status: F Source: [place] LACTOFERRIN/WBC 1:46 PM [facility] [facility] Order Date: 04/17/18 Stool Lacto/WBC Normal Reference Range = Negative Fecal WBC Lactoferrin Positive: Fecal WBC Lactoferrin present Performed By: #### M100.0605 #### [facility] [place], [address] Observed: 04/17/2018 Status: F Source: [place] ENTERIC PATHOGEN 1:46 PM [facility] [place] [facility]OL [facility]POSITORY Order Date: 04/17/18 EP PANEL STOOL Normal Reference Range = Not Detected Not detected for Campylobacter group, Salmonella species, Shigella species, Vibrio Group, Yersinia enterocolitica, EHEC (Shiga Toxin 1, Shiga Toxin 2), Norovirus Gl/Gll, and Rotavirus A. Other common stool pathogens are not detected on this panel include: Aeromonas/Plesiomonas or parasites. Order testing for these organisms separately if suspected. This is an amplified DNA test which makes it both specific and sensitive. CAMPYLOBACTER Not Detected Salmonella Not Detected Shigella sp. Not Detected Shiga Toxin Not Detected Yersinia Not Detected VIBRIO Not Detected Norovirus Not Detected Rotavirus Not Detected Performed By: #### M100.637 #### [facility] [address] [place], [address] CBC W/DIFF, AUTOMATED Collected: 04/17/2018 Status: F Source: [place] 12:05 PM [facility] [place] [facility] TYPE CODE TESTS RESULT OUT OF RANGE REFERENCE UNITS LAB L100.1000 4.4-11.0 K/mm3 Normal WBC 8.0 LAB L100.1200 4.2-5.4 M/mm3 Normal RBC 4.64 LAB L100.1300 12.0-15.0 g/dl High HGB 15.1 LAB L100.1400 37-47 % Normal HCT 43.9 LAB L100.1500 81-99 fL Normal MCV 94.6 LAB L100.1600 27.0-32.0 pg High MCH 32.5 LAB L100.1700 32-36 g/gl Normal MCHC 34.4 LAB L100.1810 11.6-14.6 % Normal RDW CV 13.2 LAB L100.1820 35.1-43.9 fl High RDW SD 45.4 LAB L100.1900 150-450 K/mm3 Normal PLT 312 LAB L100.2000 6.2-12.0 fl Normal MPV 10.2 LAB L100.2100 47-70 % Normal NEUT% 53.7 LAB L100.2200 19-41 % Normal LY% 35.5 LAB L100.2300 0-10 % Normal MONO% 6.9 LAB L100.2400 0-5 % Normal EO% 3.4 LAB L100.2500 0-1 % Normal BASO% 0.4 LAB L100.2550 0.0-0.9 % Normal IM GRAN % 0.100 Result Comment: IG% - Immature Granulocytes (promyelocytes, myelocytes and metamyelocytes) > 1% indicates that a LEFT SHIFT is Present. LAB L100.2620 2.0-7.7 X10 3/uL Normal Absolute Neut 4.3 LAB L100.2720 0.83-4.51 X10 3/ul Normal Absolute Lymph 2.84 Performed By: #### L100.0100, L700.6800 #### [facility] [address] [facility] [place], [address] ,SERUM,HCG QUALI. Collected: Status: F Source: [place] 04/17/2018 12:05 PM [facility] [place] [facility] TYPE CODE TESTS RESULT OUT OF REFERENCE UNITS RANGE LAB L700.6700 =>Qualitative mIU/mL Normal HCG Qual 2 triggr LAB L700.7000 0-9 Nonpreg Negative Normal HCGSQUAL NEGATIVE Performed By: #### L100.0100, L700.6800 #### [facility] [address] [facility] [place], [place], [id number] BASIC METABOLIC Collected: 04/17/2018 Status: F Source: [place] PROFILE (BMP) 12:05 PM [facility] [place] [facility] TYPE CODE TESTS RESULT OUT OF RANGE REFERENCE UNITS LAB L501.0100 74-106 mg/dL Normal GLU 85 Result Comment: Please note revised GLUCOSE reference range effective 2017. LAB L501.1000 7-18 mg/dL Low BUN 5 LAB L501.1100 0.55-1.02 mg/dL Normal CREAT,SERUM 0.74 Result Comment: The validity of the calculated GFR AND GFRAA in patients over 70 years has not been determined. Clinical correlation is essential. LAB L501.1110 >60 mL/min Normal EST GFR 89 Result Comment: Non- GFR Calc LAB L501.1115 >60 mL/min Normal EST GFR - AA 107 Result Comment: GFR Calc LAB L501.1255 ml/min Normal Estimated CRCL 77.74 LAB L501.1300 10-20 RATIO Low BUN/CRE 6.7 LAB L501.2200 8.5-10 mg/dL Normal .1 CA 9.2 LAB L501.5300 136-14 mmol/L Normal 5 NA 143 LAB L501.5600 3.5-5. mmol/L Normal 1 K 4.6 LAB L501.5900 98-107 mmol/L High CL 108 LAB L501.6100 21.0-3 mmol/L Normal 2.0 CO2 29.0 LAB L501.6200 5-15 Normal GAP 6 Performed By: #### L500.2500, L500.3400, L501.2450 #### [facility] [address] [place], [place], [id number] LIVER PROFILE Collected: 04/17/2018 Status: F Source: [place] 12:05 PM [facility] [place] [facility] TYPE CODE TESTS RESULT OUT OF RANGE REFERENCE UNITS LAB L501.1500 6.4-8.2 g/dL Normal T PROT 7.8 LAB L501.1800 3.2-5.0 g/dL Normal ALB 3.7 LAB L501.1950 2.2-4.2 g/dL Normal GLOB 4.1 LAB L501.4100 15-37 U/L Low AST 13 LAB L501.4305 45-117 U/L Normal ALK P 115 LAB L501.4405 13-56 U/L Normal ALT 25 LAB L501.4600 0.20-1.00 mg/dL Normal T BILI 0.20 LAB L501.4700 0.00-0.30 mg/dL Normal D BILI 0.06 Performed By: #### L500.2500, L500.3400, L501.2450 #### [facility] [address] [facility] [place], [place], [id number] LIPASE Collected: 04/17/2018 Status: F Source: [place] 12:05 PM [facility] [place] [facility] TYPE CODE TESTS RESULT OUT OF RANGE REFERENCE UNITS LAB L501.2450 73-393 U/L Normal LIPASE 147 Performed By: #### L500.2500, L500.3400, L501.2450 #### [facility] [address] [place], [place], [id number] URINALYSIS, COMPLETE Collected: 04/17/2018 Status: F Source: [place] 11:33 AM [facility] [place] [facility] Order Comment: How was Urine Obtained? CLEAN CATCH TYPE CODE TESTS RESULT OUT OF RANGE REFERENCE UNITS LAB L400.3000 Yellow COLOR Normal Yellow LAB L400.3050 Clear Normal CLARITY Sl. Cloudy LAB L400.3200 Normal mg/dl Normal GLUCOSE, UR Normal LAB L400.3300 Negative mg/dL Normal BILIRUBIN URINE Negative LAB L400.3400 Negative mg/dl Normal KETONE UR Negative LAB L400.3465 1.002-1.030 Normal SP.GR. DIPSTX 1.015 LAB L400.3550 5.0 - 8.0 pH UR Normal 5.0 LAB L400.3600 Negative mg/dl PROT Normal DIPSTX Negative LAB L400.3700 Normal mg/dl Normal UROBILI Normal LAB L400.3750 Negative Normal NITRITE UR Negative LAB L400.3780 Negative /ul Normal OCCULT BLOOD-UR Negative LAB L400.3800 Negative /ul LEUK Normal ESTERASE Negative LAB L400.4050 0-5 /hpf WBC 0 Normal SEEN LAB L400.4100 0-5 /hpf 0 Normal RBC-UA SEEN LAB L400.4150 5-10 /hpf SQUAM Normal EPI 0-5 SEEN LAB L400.4300 None Seen /hpf 0 Normal BACTERIA SEEN LAB L400.4350 <or=2+ /hpf 0 Normal MUCUS, URINE SEEN Performed By: #### L400.0001 #### [facility] [address] [facility] [place], [address] GALLBLADDER Observed: 04/17/2018 Status: F Source: [place] 11:12 AM [facility] [place] [facility] Services [address] [place] [address] Gallbladder MR#: [id number] Acct: [id number] Name: PETER TERAN Rep #: [id number] : 1970 F 47 From: You Galindo DO PCP: Jeronimo Turpin MD Status: PRE ER Study: Gallbladder Date of Exam: 04/17/18 Exam# [id number] Ordering Dr: Jose Cruz Bain DO STUDY: ABDOMINAL ULTRASOUND - RIGHT UPPER QUADRANT REASON FOR VISIT: Female, 47 years old. Epigastric pain TECHNIQUE: Ultrasound evaluation of the right upper quadrant was performed with real-time and static heard-scale imaging. TECHNICAL QUALITY: Adequate. COMPARISON: None. FINDINGS: Liver: The liver measures 15.1 cm. There is normal echogenicity of the liver. The bile ducts are within normal limits. There is hepatic color flow. The direction of portal flow is hepatopetal. There is no demonstrated mass lesion. Gallbladder: Normal distended gallbladder. The gallbladder wall measures 2 mm. There is a negative sonographic Macdonald's sign. There is no pericholecystic fluid. There are no gallstones. Common Bile Duct (C.B.D.): The common bile duct measures 2 mm. Pancreas: Normal size of the head, body and tail of the pancreas. There is normal echogenicity of the pancreas. There is no demonstrated pancreatic mass or cyst. Right Kidney: Normal size of the right kidney. The right kidney measures 10 cm. Normal renal cortex. The right cortex measures 1.4 cm. There is no demonstrated renal mass or cyst. There is no right hydronephrosis. US/Gallbladder IMPRESSION: Normal right upper quadrant ultrasound examination. Electronically Signed: You Galindo DO at 12:01 EDT Tel , Service support , CC: Jeronimo Turpin MD; Jose Cruz Bain DO Process Improvement Engineer: Signed SURGERY VISIT REPORT Observed: 04/17/2018 Status: F Source: [place] 10:45 AM [facility] [address] [place] [address] [address] [place] [address] OFFICE VISIT Date of Service: 04/17/18 MR#: [id number] Acct: [id number] Name: PETER TERAN Rep #: [id number] : 1970 Provider: Jeronimo Turpin MD Age/Sex: 47/F Location: [facility] Status: Signed Intake Vital Signs04/17/18 Height 5 ft 3 in 04/17/18 Weight: 156 lb Intake Visit Reasons: ER [facility] 04/11 Abdominal Pain Chief Complaint: Dental pain Retail Advisor Required: No Is patient in pain?: No Allergies cyclobenzaprine HCl [From Flexeril] Adverse Reaction (Verified 04/17/18 10:13) UNABLE TO FUNCTION ON MED hydromorphone HCl [From Dilaudid] Adverse Reaction (Verified 04/17/18 10:13) Nausea Penicillins Adverse Reaction (Verified 04/17/18 10:13) YEAST INFECTION Medications Hydrocodone Bitart/Apap 5-325 [[place] 5MG-325MG] 1 tab PO Q6H PRN PRN 3 Days #10 tab 04/11/18 [Rx Confirmed 04/17/18] Metoclopramide [Reglan] 10 mg PO 4X/DAY PRN #20 tab 04/11/18 [Rx Confirmed 04/17/18] Omeprazole [Prilosec] 20 mg PO DAILY #30 cap 04/11/18 [Rx Confirmed 04/17/18] Ondansetron [Zofran Odt] 4 mg PO Q8H PRN PRN #10 tab 04/11/18 [Rx Confirmed 04/17/18] Potassium Chloride [K-Dur] 20 meq PO BID #8 tab 04/11/18 [Rx Confirmed 04/17/18] lisinopril 20 mg tablet 20 mg PO BID tab 04/17/18 [History Confirmed 04/17/18] PFSH Medical History Arthritis (Acute) Back pain (Acute) Neck pain (Acute) Raynauds disease (Acute) Shoulder pain (Acute) Hypertension (Chronic) Surgical History Hx of cervical spine surgery (Acute) Family History Other Cancer Diabetes Heart disease Social History Smoking Status: Current every day smoker alcohol intake: current alcohol intake frequency: a few times a month Alcohol type: beer substance use type: does not use HPI HPI HPI: PETER TERAN, is a 47 F who presents to the office today for epigastric and right upper quadrant pain. The patient reports she has been having this pain since Labor Day with associated nausea and vomiting. She says that the pain is epigastric and right upper quadrant. She says that any food makes her vomit but she is able to tolerate liquids. She said the abdominal pain is brought on by eating. She denies any fevers or chills. ROS General General: Yes weight change and fatigue; no appetite, colon cancer, breast cancer or weakness HEENT HEENT: No difficulty swallowing, eye injury, eye surgery, swollen glands or hoarseness Endo Endocrine: No thyroid disease, diabetes mellitus, thyroid cancer, Hair loss, heat intolerance or cold intolerance Skin Skin: No rash or changing moles Breast Breast: No left breast lump, right breast lump, nipple discharge, breast pain, abnormal mammogram, abnormal US or breast enlargement Musc Musculoskeletal: Yes back problems and arthritis; no rheumatoid arthritis, gout or joint pain Cardio Cardiovascular: Yes high blood pressure; no murmur, pacemaker, heart disease, atrial fibrillation, heart attack, heart stent, palpitations, shortness of breat with exertion or chest pain Psych Psychiatric: Yes depression and anxiety; no hearing voices Resp Respiratory: No shortness of breath, No sleep apnea, No cough, No COPD, No asthma, No emphysema, No wheezing Gastro Gastrointestinal: Yes abdominal pain, Yes nausea or vomiting, Yes diarrhea, No constipation, No blood in stool, No acid reflux, No hemorrhoids, No ulcers, No gallbladder problem, No black,tarry stools Waqar Hematologic: No blood thinners, No blood disorders, No bleeding, No anemia, No blood clots Neuro Neurologic: No system reviewed and no additional complaints, except as docu, No as per HPI, No abnormal walking, No abnormal hearing, No abnormal movements, No abnormal speech, No behavioral changes, No burning sensations, No confusion, No seizure-like activity, No unsteadiness, No dizziness, No localized weakness, No frequent falls, No headache(s), No lack of coordination, No loss of vision, No memory loss, No numbness, No other visual disturbances, No radiating pain, No restless legs, No sensory deficit, No fainting, No tingling, No tremor(s), No weakness, No other Exam Const General: cooperative, uncomfortable Orientation: alert, oriented x3 HENMT Head: normal to inspection Ears: hearing grossly normal bilaterally Eyes General: appearance normal, both eyes and all related structures Visual Adkins: normal visual adkins by confrontation Neck Neck: normal visual inspection Chest Chest palpation AND inspection: normal inspection of the chest Breast Palpation: No nipple discharge Resp Effort AND Inspection: normal respiratory effort Auscultation: clear to auscultation bilaterally Cardio Rate: regular rate Rhythm: regular rhythm Heart Sounds: no murmurs GI Inspection: non-distended Palpation: soft, tender in the RUQ and Macdonald's sign positive Musc Cervical Spine: normal cervical lordosis, cervical ROM normal Skin General: no rashes or lesions noted Neuro General: alert, oriented x3 Cranial Nerves: CN's II-XI intact bilaterally Cognition: normal cognition Extrem General: normal to inspection, full ROM Psych Appearance: grossly normal Affect: normal affect Assessment AND Plan Plan 1. The patient is having nausea and vomiting as well as epigastric and right upper quadrant pain. This is suspect for biliary cause. The patient says that the pain is brought on by eating. She has never had an ultrasound of her gallbladder. 2. The patient is very uncomfortable and unable to eat or drink and having a lot of nausea and vomiting. I recommended that she is present to the emergency room for ultrasound of the gallbladder as well as a CBC and CMP. If the ultrasound shows any sludge or gallbladder stones I would believe that this is causing her symptoms and take her gallbladder out today. 3. I discussed the procedure in detail with the patient. I discussed the risks, benefits, and alternatives of the procedure. I discussed the risks including but not limited to bleeding, infection, injury to surrounding organs such as the liver, bile duct, bowels. I did discuss the possibility of having to convert to an open procedure as well as the possibility that if any injuries occurred this may necessitate further surgery at a tertiary care center. Jeronimo Turpin MD Pager: [facility] [address] [place] [address], [address] [place] [address] Office: Orders Orders: Coding Level of Care Code Off vis,new,level 4 Time Spent (min) 45 04/17/18 1045 <Electronically signed by Jeronimo Turpin MD> Date Jeronimo Turpin MD Cosigner Signature: Date (if applicable) CC: EMERGENCY DEPARTMENT Observed: 04/11/2018 Status: F Source: [place] SUMMARY 5:40 PM [facility] [place] [facility] Medical Records Department [address] [place] [address] Emergency Department Summary 04/11/18 1606 MR#: [id number] Acct: [id number] Name: PETER TERAN Rep #: [id number] : 1970 47 From: Harmony Nicholas MD PCP: Care Physician, No Primary Status: REG ER - ER Visit Summary Date of Service: 04/11/18 Chief Complaint: Abdominal pain History of Present Illness: The patient is a 47 F with epigastric abdominal pain that occurs with eating for the past 10 days. She also describes significant diarrhea and nausea. Today she had vomiting of bile. She states her weight is down 6 pounds in the last 10 days. She denies fever or chills. She does complain of some body aches and headache. Physical Examination: Vital signs unremarkable. Patient is sitting upright in bed. She appears ill but she is not toxic appearing. Head and neck examination is unremarkable with moist mucous membranes. Heart is regular rate and rhythm. Sounds are clear. Abdomen is soft with focal tenderness in the epigastrium. There is no guarding or rebound. Hypoactive bowel sounds are noted. Test Results: CBC and chemistry studies significant for potassium 3.3. LFTs and lipase normal. CT abdomen pelvis is unremarkable. Emergency Department Course and Treatment: Patient was given morphine, Zofran, and IV fluids. Repeat evaluation patient is resting comfortably. She does state that she has had peptic ulcers in the past but had a lot of reflux with that. She has not had those symptoms currently. She may have gastritis versus duodenal ulcer causing her symptoms. I recommended follow-up with GI or surgery for further testing. In the meantime she will be started on Prilosec, [place], Zofran, and Reglan. She will be given potassium replacement for the next couple days. Treatment Plan: [] Disposition: Discharge Impression: 1. Epigastric pain 2. Hypokalemia This note was generated with [employer] software. It may contain incorrect words, spelling, and punctuation that were not noted in review of the chart prior to signing ED Disposition - Plan for ED Patient: Chief Complaint: Abd Pain Referrals: Care Physician,No Primary [Primary Care Provider] - What to do if you have Problems For any increased pain, shortness of breath, bleeding, nausea or vomiting, chest pain, or any unexpected problems, contact your Primary Care Provider. Call [facility] ([phone]) or report to the closest Emergency Room. Call 911 if necessary. 04/11/18 1740 <Electronically signed by Harmony Nicholas MD> Date Harmony Nicholas MD Cosigner Signature (If Indicated): Date CC: No Primary Care Physician DISCHARGE INSTRUCTION Observed: 04/11/2018 Status: F Source: [place] 5:29 PM [facility] [place] [facility] Medical Records Department [address] [place] [address] Discharge Instruction 04/11/18 1726 MR#: [id number] Acct: [id number] Name: PETER TERAN Rep #: [id number] : 1970 47 From: Harmony Nicholas MD PCP: Care Physician, No Primary Status: REG ER ED Disposition - Plan for ED Patient: Disposition: Home or Assisted Living Chief Complaint: Abd Pain Instructions: ED Epigastric Pain [facility], ED Potassium Deficiency Prescriptions: Hydrocodone Bitart/Apap 5-325 [[place] 5MG-325MG] 1 tablet PO Q6H PRN PRN 3 Days #10 tablet PRN Reason: Pain Ondansetron [Zofran Odt] 4 mg PO Q8H PRN PRN #10 tablet PRN Reason: Nausea Omeprazole [Prilosec] 20 mg PO DAILY #30 capsule Potassium Chloride [K-Dur] 20 meq PO BID #8 tablet Metoclopramide [Reglan] 10 mg PO 4X/DAY PRN #20 tablet PRN Reason: Nausea Referrals: Jeronimo Turpni MD [STAFF PHYSICIAN] - Kamaljit Bolivar MD [NON-STAFF] - What to do if you have Problems For any increased pain, shortness of breath, bleeding, nausea or vomiting, chest pain, or any unexpected problems, contact your Primary Care Provider. Call [facility] ([phone]) or report to the closest Emergency Room. Call 911 if necessary. 04/11/18 1729 <Electronically signed by Harmony Nicholas MD> Date Harmony Nicholas MD Cosigner Signature (If Indicated): Date CC: No Primary Care Physician ABDOMEN/PELVIS WITH Observed: 04/11/2018 Status: F Source: [place] CONTRAST 2:46 PM [facility] [place] [facility] Imaging Services [address] [place] [address] Abdomen/Pelvis WITH Contrast MR#: [id number] Acct: [id number] Name: PETER TERAN Rep #: [id number] : 1970 F 47 From: Stacy Mace MD PCP: Care Physician, No Primary Status: REG ER Study: Abdomen/Pelvis WITH Contrast Date of Exam: 04/11/18 Exam# [id number] Ordering Dr: Harmony Nicholas MD STUDY: CT ABDOMEN AND PELVIS WITH CONTRAST REASON FOR EXAM: Female, 47 years old. UPPER ABD PAIN, N/V,D X 10 DAYS RADIATION DOSAGE (If Supplied By Facility): CTDIvol = ( 15.63 ) mGy, DLP = ( 886.09 ) mGycm TECHNIQUE: Transaxial images were obtained from the dome of the diaphragm to the symphysis pubis with oral contrast. 100 ml of Isovue 300 contrast was administered. Sagittal and coronal images were reconstructed. Individualized dose optimization techniques were used for this CT. COMPARISON: None. FINDINGS: The visualized lung bases are unremarkable. The visualized portions of the heart are within normal limits. Normal liver. Normal gallbladder and extrahepatic biliary system. Normal spleen. Small splenule is noted medial to the spleen. Normal pancreas. Normal bilateral adrenal glands. Normal right kidney. Normal left kidney. Normal visualized stomach. Normal small intestine. Normal colon. The appendix is visualized and appears normal. Mild atherosclerosis of the aorta noted. Normal inferior vena cava. Normal retroperitoneum. Normal urinary bladder. Normal abdominal wall. Degenerative disc height loss with marginal osteophytes, broad posterior disc bulge and vacuum disc phenomena noted at L5-S1. CT/Abdomen/Pelvis WITH Contrast IMPRESSION: Normal enhanced CT of the abdomen and pelvis. Electronically Signed: Stacy Mace MD at 17:15 EDT , Service support , CC: No Primary Care Physician; Harmony Nicholas MD Process Improvement Engineer: Signed CBC W/DIFF, AUTOMATED Collected: 04/11/2018 Status: F Source: [place] 1:58 PM [facility] [place] [facility] TYPE CODE TESTS RESULT OUT OF RANGE REFERENCE UNITS LAB L100.1000 4.4-11.0 K/mm3 Normal WBC 7.3 LAB L100.1200 4.2-5.4 M/mm3 Normal RBC 4.36 LAB L100.1300 12.0-15.0 g/dl Normal HGB 14.0 LAB L100.1400 37-47 % Normal HCT 41.0 LAB L100.1500 81-99 fL Normal MCV 94.0 LAB L100.1600 27.0-32.0 pg High MCH 32.1 LAB L100.1700 32-36 g/gl Normal MCHC 34.1 LAB L100.1810 11.6-14.6 % Normal RDW CV 12.6 LAB L100.1820 35.1-43.9 fl Normal RDW SD 43.2 LAB L100.1900 150-450 K/mm3 Normal PLT 209 LAB L100.2000 6.2-12.0 fl Normal MPV 11.1 LAB L100.2100 47-70 % Normal NEUT% 62.1 LAB L100.2200 19-41 % Normal LY% 26.5 LAB L100.2300 0-10 % Normal MONO% 9.1 LAB L100.2400 0-5 % Normal EO% 1.9 LAB L100.2500 0-1 % Normal BASO% 0.4 LAB L100.2550 0.0-0.9 % Normal IM GRAN % 0.000 Result Comment: IG% - Immature Granulocytes (promyelocytes, myelocytes and metamyelocytes) > 1% indicates that a LEFT SHIFT is Present. LAB L100.2620 2.0-7.7 X10 3/uL Normal Absolute Neut 4.5 LAB L100.2720 0.83-4.51 X10 3/ul Normal Absolute Lymph 1.93 Performed By: #### L100.0100 #### [facility] [address] [place], [address] BASIC METABOLIC Collected: 04/11/2018 Status: F Source: [place] PROFILE (BMP) 1:58 PM [facility] [place] [facility] TYPE CODE TESTS RESULT OUT OF RANGE REFERENCE UNITS LAB L501.0100 74-106 mg/dL Normal GLU 93 Result Comment: Please note revised GLUCOSE reference range effective 2017. LAB L501.1000 7-18 mg/dL Normal BUN 14 LAB L501.1100 0.55-1.02 mg/dL Normal CREAT,SERUM 0.82 Result Comment: The validity of the calculated GFR AND GFRAA in patients over 70 years has not been determined. Clinical correlation is essential. LAB L501.1110 >60 mL/min Normal EST GFR 80 Result Comment: Non- GFR Calc LAB L501.1115 >60 mL/min Normal EST GFR - AA 96 Result Comment: GFR Calc LAB L501.1255 ml/min Normal Estimated CRCL 70.16 LAB L501.1300 10-20 RATIO Normal BUN/CRE 17.2 LAB L501.2200 8.5-10 mg/dL Normal .1 CA 9.3 LAB L501.5300 136-14 mmol/L Normal 5 NA 140 LAB L501.5600 3.5-5. mmol/L Low 1 K 3.3 LAB L501.5900 98-107 mmol/L Normal CL 107 LAB L501.6100 21.0-3 mmol/L Normal 2.0 CO2 26.0 LAB L501.6200 5-15 Normal GAP 7 Performed By: #### L500.2500, L500.3400, L501.2450 #### [facility] [address] [place], [place], [id number] LIVER PROFILE Collected: 04/11/2018 Status: F Source: [place] 1:58 PM [facility] [place] [facility] TYPE CODE TESTS RESULT OUT OF RANGE REFERENCE UNITS LAB L501.1500 6.4-8.2 g/dL Normal T PROT 7.7 LAB L501.1800 3.2-5.0 g/dL Normal ALB 4.0 LAB L501.1950 2.2-4.2 g/dL Normal GLOB 3.7 LAB L501.4100 15-37 U/L Low AST 12 LAB L501.4305 45-117 U/L Normal ALK P 96 LAB L501.4405 13-56 U/L Normal ALT 20 LAB L501.4600 0.20-1.00 mg/dL Normal T BILI 0.40 LAB L501.4700 0.00-0.30 mg/dL Normal D BILI 0.14 Performed By: #### L500.2500, L500.3400, L501.2450 #### [facility] [address] [place], [address] LIPASE Collected: 04/11/2018 Status: F Source: [place] 1:58 PM [facility] [place] CODE TESTS RESULT OUT OF RANGE REFERENCE UNITS LAB L501.2450 73-393 U/L Normal LIPASE 120 Performed By: #### L500.2500, L500.3400, L501.2450 #### [facility] [address] [place], [place], [id number] URGENT CARE VISIT Observed: 12/06/2017 Status: F Source: [place] REPORT 2:44 PM [facility] [place] Now [address] [place], [place] [address] OFFICE VISIT Date of Service: 12/06/17 MR#: [id number] Acct: [id number] Name: PETER TERAN Rep #: [id number] : 1970 Provider: Lavelle MCNAMARA Age/Sex: 47/F [place] [facility] [place]: Signed Intake Vital Signs12/06/17 Height 5 ft 4 in Intake Visit Reasons: Abcess tooth Chief Complaint: Dental pain Allergies cyclobenzaprine HCl [From Flexeril] Adverse Reaction (Verified 09/05/17 15:04) UNABLE TO FUNCTION ON MED hydromorphone HCl [From Dilaudid] Adverse Reaction (Verified 09/05/17 15:04) Nausea Penicillins Adverse Reaction (Verified 12/06/17 14:13) YEAST INFECTION Medications aspirin-caffeine 500 mg-32.5 mg tablet tab PO 12/06/17 [History Confirmed 12/06/17] clindamycin HCl 300 mg capsule 300 mg PO TID #30 cap 12/06/17 [Rx Confirmed 12/06/17] PFSH Medical History Arthritis (Acute) Back pain (Acute) Neck pain (Acute) Raynauds disease (Acute) Shoulder pain (Acute) Hypertension (Chronic) Surgical History Hx of cervical spine surgery (Acute) Family History Other Cancer Diabetes Heart disease Social History Smoking Status: Current every day smoker alcohol intake: current alcohol intake frequency: a few times a month Alcohol type: beer HPI HPI Chief Complaint: Dental pain Details: PETER TERAN, is a 47 F who presents to the office today for evaluation of left upper molar dental pain. Patient notes having a long-standing history of multiple dental caries throughout her mouth, stating that she is unable to get into the dentist for at least another week and states that her pain has become intolerable to her left upper gumline around her one molar has a cavity. She notes no complaints of fever, chills, sweats. She notes the moderate severe aching pain is aggravated to touch alleviated by essentially nothing. She notes no other complaints at this time. Exam Const General: cooperative, healthy appearing, no acute distress Nutritional Appearance: average body habitus Orientation: alert, awake, oriented x3 HENMT Head: normal to inspection Ears: hearing grossly normal bilaterally, external ears normal, TM's normal bilaterally, EAC's normal Nose: external nose normal, nares normal, septum normal, no nasal discharge Face and sinus: normal facial exam, face symmetric Teeth and gingiva: abnormal dentition (L upper molar nereida w/ gingival erythema/swelling circumferential to same) Eyes General: appearance normal, both eyes and all related structures Neck Neck: normal visual inspection, full ROM, no meningeal signs, supple, lymphadenopathy (Bilateral anterior cervical node swelling and tender to palpation) Neck mass: No Thyroid: thyroid normal Lymphatic: no lymphadenopathy noted Chest Chest palpation AND inspection: normal inspection of the chest Resp Effort AND Inspection: normal respiratory effort, able to speak in complete sentences, symmetric chest movement, no cough Auscultation: Bilateral: Clear to Auscultation Cardio Palpation: normal PMI Rate: regular rate Rhythm: regular rhythm Heart Sounds: S1 normal, S2 normal, no gallops, no murmurs, no rubs Pulses: radial pulses present Assessment AND Plan Problems 1. Infected dental caries K02.9; K04.7 Plan Clindamycin as prescribed today. Clear fluids, rest, Advil/Tylenol as needed for symptomatic relief. Dentist first available appointment, ED sooner should symptoms worsen or other concerns develop. Patient states acknowledging understanding all the above. This note was generated with [employer] dictation software. It may contain incorrect words, spelling, and punctuation that were not noted in checking the note before signing. Medications New: Discontinued: Coding Level of Care Code Off vis,new,level 3 Diagnoses Infected dental caries K02.9; K04.7 12/06/17 1444 <Electronically signed by Lavelle MCNAMARA> Date Lavelle MCNAMARA Cosigner Signature: Date (if applicable) CC: DISCHARGE INSTRUCTION Observed: 09/05/2017 Status: F Source: [place] 4:48 PM [facility] [place] [facility] Medical Records Department [address] [place] [address] Discharge Instruction 09/05/17 1647 MR#: [id number] Acct: [id number] Name: PETER TERAN Rep #: [id number] : 1970 47 From: Samuel Hernandez MD PCP: Bladimir Malone Status: REG ER ED Disposition - Plan for ED Patient: Disposition: Home or Assisted Living Chief Complaint: Lower Extremity Injury Instructions: ED Sprain Ankle W X Ray Prescriptions: Naproxen [Naprosyn] 500 mg PO BID PRN #20 tab Referrals: Bladimir Malone MD [Primary Care Provider] - What to do if you have Problems For any increased pain, shortness of breath, bleeding, nausea or vomiting, chest pain, or any unexpected problems, contact your Primary Care Provider. Call [facility] ([phone]) or report to the closest Emergency Room. Call 911 if necessary. 09/05/178 <Electronically signed by Samuel Hernandez MD> Date Samuel Hernandez MD Cosigner Signature (If Indicated): Date CC: Bladimir Malone EMERGENCY DEPARTMENT Observed: 09/05/2017 Status: F Source: [place] SUMMARY 4:47 PM [facility] [place] [facility] Medical Records Department [address] [place] [address] Emergency Department Summary 09/05/17 1644 MR#: [id number] Acct: [id number] Name: PETER TERAN Rep #: [id number] : 1970 47 From: Samuel Hernandez MD PCP: Bladimir Malone Status: REG ER - ER Visit Summary Date of Service: 09/05/17 Chief Complaint: Right foot/ankle injury History of Present Illness: The patient is a 47 F who has pain in the right foot and ankle. She twisted it when she stood up from the recliner. She has pain on the lateral part of the ankle down into the foot. It radiates up her leg. No previous injuries or fractures. She did not take anything for this at home. Physical Examination: Vital signs reviewed. Right ankle and foot exam reveals tenderness over the fifth metatarsal as well as the ATFL area. She also is tender on the proximal fibula. There is mild swelling down the foot and ankle. Test Results: X-rays of the foot, ankle and tibia-fibula are all normal Emergency Department Course and Treatment: Patient was given [place] for pain control Treatment Plan: X-rays are all negative. Patient will be given an Aircast and crutches. Naproxen for home. She will ice and elevate. We will follow- up with PCP Disposition: Discharge Impression: Right foot sprain This note was generated with [employer] dictation software. It may contain incorrect words, spelling, and punctuation that were not noted in review of the chart prior to signing ED Disposition - Plan for ED Patient: Chief Complaint: Lower Extremity Injury Referrals: Bladimir Malone MD [Primary Care Provider] - What to do if you have Problems For any increased pain, shortness of breath, bleeding, nausea or vomiting, chest pain, or any unexpected problems, contact your Primary Care Provider. Call [employer] [facility] ([phone]) or report to the closest Emergency Room. Call 911 if necessary. 09/05/17 1647 <Electronically signed by Samuel Hernandez MD> Date Samuel Hernandez MD Cosigner Signature (If Indicated): Date CC: Bladimir Malone FOOT MIN 3 VIEWS Observed: 09/05/2017 Status: F Source: [place] 3:52 PM [facility] [place] [facility] Imaging Services [address] [place] [address] Foot min 3 Views MR#: [id number] Acct: [id number] Name: DAWSONPETER L Rep #: [id number] : 1970 F 47 From: Amanda Ibanez MD PCP: Bladimir Malone Status: REG ER Study: Foot min 3 Views Date of Exam: 09/05/17 Exam# [id number] Ordering Dr: Samuel Hernandez MD STUDY: X-RAY - RIGHT FOOT CLINICAL: Female, 47 years old. Rolled right ankle. TECHNIQUE: 3 view(s) of the foot. COMPARISON: None. FINDINGS: Normal talus, calcaneus, and tarsal bones. Normal visualized subtalar, talonavicular, calcaneocuboid, tarsal and tarsometatarsal articulations. Normal metatarsi. Normal metatarsophalangeal joint of the great toe. Normal interphalangeal joint of the great toe. Normal phalanges of the great toe. Normal second through fifth metatarsophalangeal joints. Normal interphalangeal joints and phalanges of the lesser toes. The soft tissue structures are unremarkable. RAD/Foot min 3 Views IMPRESSION: No acute osseous injury identified. Electronically Signed: Amanda Ibanez MD at 16:21 EST Tel , Service support , CC: Samuel Hernandez MD; Bladimir Malone Process Improvement Engineer: Signed TIBIA AND FIBULA Observed: 09/05/2017 Status: F Source: [place] 2 VIEWS 3:52 PM [facility] REPOSITORY [facility] Imaging Services [address] [place] [address] Tibia AND Fibula 2 Views MR#: [id number] Acct: [id number] Name: PETER TERAN Rep #: [id number] : 1970 F 47 From: Amanda Ibanez MD PCP: Bladimir Malone Status: REG ER Study: Tibia AND Fibula 2 Views Date of Exam: 09/05/17 Exam# [id number] Ordering Dr: Samuel Hernadnez MD STUDY: X-RAY - RIGHT TIBIA AND FIBULA REASON FOR EXAM: Female, 47 years old. Rolled ankle. TECHNIQUE: 3 view(s) of the tibia and fibula were obtained. COMPARISON: None. FINDINGS: Normal visualized tibia. Normal visualized fibula. The soft tissue structures are unremarkable. RAD/Tibia AND Fibula 2 Views IMPRESSION: No acute osseous injury identified. Electronically Signed: Amanda Ibanez MD at 16:24 EST Tel , Service support , CC: Samuel Hernandez MD; Bladimir Malone Process Improvement Engineer: Signed ANKLE MIN 3 VIEWS Observed: 09/05/2017 Status: F Source: [place] 3:06 PM [facility] [place] [facility] Imaging Services [address] [place] [address]07 Ankle min 3 Views MR#: [id number] Acct: [id number] Name: PETER TERAN Rep #: [id number] : 1970 F 47 From: Dany Huertas MD PCP: Bladimir Malone Status: PRE ER Study: Ankle min 3 Views Date of Exam: 09/05/17 Exam# [id number] Ordering Dr: Johnathon Mcallister PRosa STUDY: X-RAY - RIGHT ANKLE REASON FOR EXAM: Female, 47 years old. Pain following recent injury. TECHNIQUE: 3 view(s) of the ankle. COMPARISON: None. FINDINGS: Normal visualized distal tibia and fibula. Normal medial and lateral malleoli. Normal tibiotalar articulation and ankle mortise. Normal visualized talus and calcaneus. The visualized subtalar, talonavicular, calcaneocuboid and tarsal articulations are normal. The soft tissue structures are unremarkable. RAD/Ankle min 3 Views IMPRESSION: Normal x-ray examination of the ankle. Electronically Signed: Dany Huertas MD at 15:35 EST Tel [phone], Service support , CC: ED PHYSICIAN PROVIDER; Bladimir Malone Process Improvement Engineer: Signed ALLERGIES ALLERGIES DATE TYPE / NAME / CODE REACTION SEVERITY SOURCE CODE 05/30/2018 Drug hydromorphone Nausea Unknown [place] Allergy/41 HCl/[id number](RXNORM Community [id number] [place] [address]) Repository 05/30/2018 Drug cyclobenzaprine UNABLE TO Unknown [place] Allergy/41 HCl/[id number](RXNORM FUNCTION ON MED Community 7420967([facility]) Repository 05/30/2018 Drug Penicillins/[id number] YEAST INFECTION Unknown [place] Allergy/41 6(RXNORM) Community [address] [place] [address]([facility]) Repository ENCOUNTERS ENCOUNTERS ADMIT/DISCHARGE ACCOUNT NUMBER ADMITTING ENCOUNTER LOCATION SOURCE CLASS 07/31/2018 [id number] Ambulatory [facility] ding:MTLAB Repository 07/15/2018/07/15/20 [id number] Ambulatory BBuilding:MS Loren [address] [place] [address] Repository 07/13/2018 [id number] Ambulatory [facility] ding:LABSPEC Repository 07/11/2018 [id number] Ambulatory [facility] ding:MTLAB Repository 06/06/2018 [id number] Ambulatory [facility] ding:LABSPEC Repository 06/06/2018/06/06/20 [id number] Ambulatory BMSBuilding: [place] [facility] Repository 05/30/2018/05/30/20 [id number] Ambulatory BMSBuilding: [place] [facility] Repository 05/25/2018 [id number] Ambulatory [facility] ding:US Repository 05/10/2018/05/10/20 [id number] Ambulatory BMSBuilding: [place] 18 [facility] Repository 04/26/2018 [id number] Ambulatory BMSBuilding: [place] [facility] Repository 04/23/2018 [id number] [place], Ambulatory BMSBuilding: [place] [facility] Repository 04/23/2018 [id number] [facility], Ambulatory BMSBuilding: [place] [facility] Repository 04/23/2018/04/27/20 [id number] [place], Inpatient [place] 18 [facility] ding:FU1Henx Repository : QD786Rma: 1 04/23/2018 [id number] [place], Ambulatory BMSBuilding: [place] [facility] Repository 04/23/2018 [id number] [facility], Ambulatory BMSBuilding: [place] BMS.[facility] Repository 04/23/2018 [id number] [facility], Ambulatory BMSBuilding: [place] [facility] Repository 04/23/2018 [id number] [facility], Ambulatory BMSBuilding: [place] [facility]..[facility] Repository 04/23/2018 [id number] [facility], Ambulatory BMSBuilding: [place] [facility] Repository 04/23/2018/04/27/20 [id number] Ambulatory BMSBuilding: [place] 18 BMS.[facility] Repository 04/23/2018 [id number] [facility], Ambulatory BMSBuilding: [place] BMS.[facility] Repository 04/17/2018/04/17/20 [id number] Emergency [address] ding:ED Repository 04/17/2018/04/17/20 [id number] Ambulatory BMSBuilding: [place] 18 [facility] Repository 04/11/2018/04/11/20 [id number] Emergency [address] ding:ED Repository 12/06/2017/12/07/19 [id number] Ambulatory BMSBuilding: [place] 18 [facility]MS[facility] Repository 09/05/2017/09/05/19 [id number] Emergency [place] 18 [facility] ding:ED Repository PAYERS PAYERS ENCOUNTER GUARANTOR PAYER SUBSCRIBER SOURCE 07/31/2018 PETER Deal Primary TRINIDAD Starks [id number] Insurance:AETNAPolicy [address]D[facility] [address] Number: [id number], [place] [id number] Repository [address]Zvi: (330) Date:1048-93-06ZE [phone] (HP) 255476OM [place] [address]HE: 07/31/2018 Secondary NOT GIVENUNK [place] Insurance:SELF PAY [facility] Number: Effective Repository Date:2018-07-31 07/15/2018 [facility] WOODRUFFDOB: [facility] [id number] INSCOPolicy Number: [id number] Repository [facility] [id number] [place], [place] Date:2018-07-10 [place] [address]~DANIELLE 5780-96-66Qiui 97352Myw: (602) 236@[facility] Name:AUTISM MOTOR SPECIALIST [address] [phone] : [facility] [place] [id number]: (HP)Tel: ([phone] (HP) [phone] () 07/13/2018 PETER Deal Primary TRINIDAD Whitley [place] [id number] Insurance:AETNAPolicy WOODRUFFDOB: [facility] [address] Number: [id number], [place] [id number] Repository [address]Rww: 330) Date:5708-78-41EK [phone] (HP) 686909HV [place] [address]IQ: 07/13/2018 Secondary NOT GIVENUNK [place] Insurance:SELF PAY [facility] Number: Effective Repository Date:2018-07-13 07/11/2018 PETER Deal Primary TRINIDAD Starks [id number] Insurance:AETNAPolicy WOODRUFFDOB: Community [address] Number: [id number], [place] [id number] Repository [address]Owc: (330) Date:2927-18-58TK [phone] () 782852LFGLENNIE, [place] [address]BB: 07/11/2018 Secondary NOT GIVENUNK [place] Insurance:SELF PAY [facility] Number: Effective Repository Date:2018-07-11 06/06/2018 PETER Deal Primary TRINIDAD Whitley [place] [id number] Insurance:AETNAPolicy WOODRUFFDOB: [facility] [address] Number: [id number], [place] [id number] Repository [address]Yet: (330) Date:2369-71-40NR [phone] () 785602GQGLENNIE, [place] [address]OA: 06/06/2018 Secondary NOT GIVENUNK [place] Insurance:SELF PAY [facility] Number: Effective Repository Date:2018-06-06 06/06/2018 PETER Deal Primary TRINIDAD Starks [id number] Insurance:AETNAPolicy WOODRUFFDOB: [facility] [address] Number: [id number], [place] [id number] Repository [address]Njt: (330) Date:8032-04-39IA [phone] (HP) 897688VIGLENNIE, [place] [address]SL: 06/06/2018 Secondary NOT GIVENUNK [place] Insurance:SELF PAY [facility] Number: Effective Repository Date:2018-06-06 05/30/2018 PETER Deal Primary TRINIDAD Lewisoster [id number] Insurance:AETNAPolicy WOODRUFFDOB: Community [address] Number: [id number], [place] [id number] Repository [address]Sjz: (330) Date:0266-45-75QA [phone] (HP) 217992WG [place] [address]HC: 05/30/2018 Secondary NOT GIVENUNK [place] Insurance:SELF PAY [facility] Number: Effective Repository Date:2018-05-30 05/25/2018 PETER Deal Primary TRINIDAD Whitley [place] [id number] Insurance:AETNAPolicy WOODRUFFDOB: Community [address] Number: [id number], [place] [id number] Repository [address]Ncp: (330) Date:0475-31-62UJ [phone] () 649053SIGLENNIE, [place] [address]BU: 05/25/2018 Secondary NOT GIVENUNK [place] Insurance:SELF PAY [facility] Number: Effective Repository Date:2018-05-22 05/10/2018 PETER Deal Primary TRINIDAD Starks [id number] Insurance:AETNAPolicy WOODRUFFDOB: Community [address] Number: [id number], [place] [id number] Repository [address]Tmw: (330) Date:7135-97-74FM [phone] () 728423UUGLENNIE, [place] [address]HU: 05/10/2018 Secondary NOT GIVENUNK [place] Insurance:SELF PAY [facility] Number: Effective Repository Date:2018-05-10 04/26/2018 PETER Deal Primary TRINIDAD Whitley [place] [id number] Insurance:AETNAPolicy WOODRUFFDOB: Community [address] Number: [id number], [place] [id number] Repository [address]Zxd: (330) Date:6186-47-48LP [phone] (HP) 092864BIGLENNIE, [place] [address]OG: 04/26/2018 Secondary NOT GIVENUNK [place] Insurance:SELF PAY [facility] Number: Effective Repository Date:2018-04-26 04/23/2018 PETER Deal Primary TRINIDAD Starks [id number] Insurance:AETNAPolicy WOODRUFFDOB: Community [address] Number: [id number], [place] [id number] Repository [address]Jhz: (330) Date:4988-15-67JN [phone] () 560132YAGLENNIE, [place] [address]CN: 04/23/2018 Secondary NOT GIVENUNK [place] Insurance:SELF PAY [facility] Number: Effective Repository Date:2018-04-23 04/23/2018 PETER Deal Primary TRINIDAD Starks [id number] Insurance:AETNAPolicy WOODRUFFDOB: Community [address] Number: [id number], [place] [id number] Repository [address]Nqu: (330) Date:1295-00-89QI [phone] (HP) 186692NRGLENNIE, [place] [address]RB: 04/23/2018 Secondary NOT GIVENUNK [place] Insurance:SELF PAY [facility] Number: Effective Repository Date:2018-04-23 04/23/2018 PETER Deal Primary TRINIDAD Starks [id number] Insurance:AETNAPolicy WOODRUFFDOB: Community [address] Number: [id number], [place] [id number] Repository [address]Cfu: (330) Date:7480-90-28BB [phone] (HP) 138043VEGLENNIE, [place] [address]JW: 04/23/2018 Secondary NOT GIVENUNK [place] Insurance:SELF PAY [facility] Number: Effective Repository Date:2018-04-23 04/23/2018 PETER Deal Primary TRINIDAD Starks [id number] Insurance:AETNAPolicy WOODRUFFDOB: Community [address] Number: [id number], [place] [id number] Repository [address]Slq: (330) Date:2653-56-57HV [phone] () 948722ZV [place] [address]EL: 04/23/2018 Secondary NOT GIVENUNK [place] Insurance:SELF PAY [facility] Number: Effective Repository Date:2018-04-23 04/23/2018 PETER Deal Primary TRINIDAD Starks [id number] Insurance:AETNAPolicy WOODRUFFDOB: Community [address] Number: [id number], [place] [id number] Repository [address]Iqs: (330) Date:5502-72-21AG [phone] () 410638FOGLENNIE, [place] [address]SY: 04/23/2018 Secondary NOT GIVENUNK [place] Insurance:SELF PAY [facility] Number: Effective Repository Date:2018-04-23 04/23/2018 PETER Deal Primary TRINIDAD Starks [id number] Insurance:AETNAPolicy WOODRUFFDOB: Community [address] Number: [id number], [place] [id number] Repository [address]Hxi: (330) Date:7309-87-93AS [phone] () 722430ZXGLENNIE, [place] [address]EH: 04/23/2018 Secondary NOT GIVENUNK [place] Insurance:SELF PAY [facility] Number: Effective Repository Date:2018-04-23 04/23/2018 PETER Deal Primary TRINIDAD Starks [id number] Insurance:AETNAPolicy WOODRUFFDOB: Community [address] Number: [id number], [place] [id number] Repository [address]Clz: (330) Date:8135-53-35GD [phone] (HP) 285721TU [place] [address]MY: 04/23/2018 Secondary NOT GIVENUNK [place] Insurance:SELF PAY [facility] Number: Effective Repository Date:2018-04-23 04/23/2018 PETER Deal Primary TRINIDAD Starks [id number] Insurance:AETNAPolicy WOODRUFFDOB: Community [address] Number: [id number], [place] [id number] Repository [address]Pyl: (330) Date:3348-46-43UW [phone] (HP) 512860BKGLENNIE, [place] [address]FD: 04/23/2018 Secondary NOT GIVENUNK [place] Insurance:SELF PAY [facility] Number: Effective Repository Date:2018-04-23 04/23/2018 PETER Deal Primary TRINIDAD Whitley [place] [id number] Insurance:AETNAPolicy WOODRUFFDOB: Community [address] Number: [id number], [place] [id number] Repository [address]Vcf: (330) Date:2725-33-97DS [phone] (HP) 900987RQGLENNIE, [place] [address]GM: 04/23/2018 Secondary NOT GIVENUNK [place] Insurance:SELF PAY [facility] Number: Effective Repository Date:2018-04-23 04/23/2018 PETER Deal Primary TRINIDAD Whitley [place] [id number] Insurance:AETNAPolicy WOODRUFFDOB: Community [address] Number: [id number], [place] [id number] Repository [address]Dls: (330) Date:9714-59-80YG [phone] (HP) 999080HHGLENNIE, [place] [address]RX: 04/23/2018 Secondary NOT GIVENUNK [place] Insurance:SELF PAY [facility] Number: Effective Repository Date:2018-04-23 04/17/2018 PETER Deal Primary Trinidad Starks [id number] Insurance:AETNAPolicy WoodruffDOB: Community [address] Number: [id number], [place] [id number] Repository [address]Tev: (330) Date:7328-39-51UP [phone] () 134764ZUGLENNIE, [place] [address]VV: 04/17/2018 Secondary NOT GIVENUNK [place] Insurance:SELF PAY [facility] Number: Effective Repository Date:2018-04-17 04/17/2018 PETER Deal Primary [place] Starks [id number] Insurance:AETNAPolicy WoodruffDOB: Community [address] Number: [id number], [place] [id number] Repository [address]Nmd: [phone]) Date:4032-10-88LD [phone] () [id number], [place] [address]UW: 04/17/2018 Secondary NOT GIVENUNK [place] Insurance:SELF PAY [facility] Number: Effective Repository Date:2018-04-17 04/11/2018 PETER Deal Primary [place] Starks [id number] Insurance:AETNAPolicy WoodruffDOB: Community [address] Number: [id number], [place] [id number] Repository [address]Yjh: ([phone]) Date:0711-80-46UY [phone] () [place], [place] [address]AV: 04/11/2018 Secondary NOT GIVENUNK [place] Insurance:SELF PAY [facility] Number: Effective Repository Date:2018-04-11 12/06/2017 PETER Deal Primary [place] Starks [id number] Insurance:AETNAPolicy WoodruffDOB: Community [address] Number: [id number], [place] [id number] Repository [address]Sia: ([phone]) Date:7252-75-61LQ [phone] () 317[address]ERRAIZA YEAGER [address]YB: 12/06/2017 Secondary NOT GIVENUNK [place] Insurance:SELF PAY [facility] Number: Effective Repository Date:2017-12-06 09/05/2017 [id number] Insurance:Rafita McnamaraB[facility] [address] Number: [id number] [id number] Repository [address]Anz: ([phone]) Date:0145-37-36CR [phone] () 801303QQRAIZA YEAGER [address]PI: 09/05/2017 Secondary NOT GIVENUNK [place] Insurance:SELF PAY [facility] Number: Effective Repository Date:2017-09-05
== END ==
PROVIDERS: Family Provider Family Medicine; PCP Family Medicine; Referring Provider Internal Medicine Gastroenterology; Visit Provider Internal Medicine Gastroenterology
DX: R19.7 Diarrhea, unspecified (principal)
CPT/HCPCS: 82705; 87493

== ENCOUNTER → 2018-07-31 09:53 | Outpatient (CLI) | payer OTHER, SELFPAY ==
[2018-07-11 12:07] VITALS: BMI 30.9
[2018-07-31 12:50] LABS: AST(SGOT) 14 U/L (15-37); Alanine Aminotransfer ALT/SGPT 26 U/L (13-56); Albumin, Serum 4.2 g/dL (3.2-5.0); Alkaline Phosphatase 122 U/L (45-117); Bilirubin, Direct 0.08 mg/dL (0.00-0.30); CRP 8.89 mg/L (0.0-3.0); Globulin 4.2 g/dL (2.2-4.2); Protein, Total 8.4 g/dL (6.4-8.2)
[2018-08-01 08:13] LABS: Lipase 123 U/L (73-393)
[2018-08-01 16:07] LABS: Endomysial Antibody IgA Negative (Negative)
[2018-08-02 16:44] LABS: Immunoglobulin A 205 mg/dL (87-352); t-Transglutaminase IgA <2 U/mL (0-3)
== END ==
LOC: MTLAB 09:54
PROVIDERS: Family Provider Family Medicine; PCP Family Medicine; Referring Provider Internal Medicine Gastroenterology; Visit Provider Internal Medicine Gastroenterology
DX: R19.7 Diarrhea, unspecified (principal); R10.9 Unspecified abdominal pain
CPT/HCPCS: 36415; 80076; 82784; 83516; 83690; 86140; 86255

== ENCOUNTER → 2019-04-24 13:15 | Outpatient (CLI) | payer OTHER, SELFPAY ==
[2018-07-11 12:07] VITALS: BMI 30.9
--- NOTE | 2019-04-24 13:19 | EKG12_ITS ---
Test Reason : PRE OP Blood Pressure : / mmHG Vent. Rate : 063 BPM Atrial Rate : 063 BPM P-R Int : 140 ms QRS Dur : 076 ms QT Int : 396 ms P-R-T Axes : 002 070 044 degrees QTc Int : 405 ms Normal sinus rhythm Normal ECG When compared with ECG of 26-APR-2018 09:58, No significant change was found Confirmed by AYAD FRANK, CHARLIE ([id number]), editor sound BEKAH CANTU ([id number]) on 04/25/2019 8:37:12 AM Referred By: Jaison Ramirez Confirmed By:AMANDA LION MD
[2019-04-24 13:51] LABS: Absolute Lymphocyte Count 3.74 X10^3/uL (0.83-4.51); Absolute Neutrophil Count 7.4 X10^3/uL (2.0-7.7); Basophil# 0.08 X10^3/uL; Basophil% 0.6 % (0-1); Eosinophil# 0.37 X10^3/uL; Eosinophils% 2.9 % (0-5); Hematocrit 44.1 % (37-47); Hemoglobin 14.4 g/dL (12.0-15.0); Lymphocyte # 3.74 X10^3/ul (4.0); Lymphocyte % 29.8 % (19-41); Mean Corp Hgb Conc 32.7 g/dL (32-36); Mean Corpuscular Hgb 31.5 pg (27.0-32.0); Mean Corpuscular Volume 96.5 fL (81-99); Mean Platelet Vol. 10.4 fl (6.2-12.0); Monocyte# 0.95 X10^3/uL; Monocyte% 7.6 % (0-10); NRBC Flagged by Analyzer 0 % (0-5); Neutrophil # 7.38 X10^3/uL (2.7-7.7); Neutrophil % 58.9 % (47-70); Platelet Count 324 K/mm3 (150-450); RBC Distribution Width CV 12.9 % (11.6-14.6); RBC Distribution Width SD 45.8 fl (35.1-43.9); Red Blood Count 4.57 M/mm3 (4.2-5.4); White Blood Count 12.6 K/mm3 (4.4-11.0)
[2019-04-24 14:12] LABS: Anion Gap 8 (5-15); BUN 15 mg/dL (7-18); BUN/Creat Ratio 18.3 RATIO (10-20); Calcium,Total 9.9 mg/dL (8.5-10.1); Chloride 102 mmol/L (98-107); Creatinine, Serum 0.82 mg/dL (0.55-1.02); EST Glomerular Filtration Rate 79 mL/min (>60); Est Glom Filt Rate - Afr Amer 95 mL/min (>60); Glucose 106 mg/dL (74-106); Potassium 4.3 mmol/L (3.5-5.1); Sodium Level 138 mmol/L (136-145)
== END ==
PROVIDERS: Family Provider Family Medicine; PCP Family Medicine; Referring Provider Otolaryngology; Visit Provider Otolaryngology
DX: Z01.818 Encounter for other preprocedural examination (principal)
CPT/HCPCS: 36415; 80048; 85025; 93005

== ENCOUNTER → 2019-04-28 15:10 | Outpatient (CLI) | payer OTHER, SELFPAY ==
[2018-07-11 12:07] VITALS: BMI 30.9
--- NOTE | 2019-04-28 11:06 | LES_PTH ---
PATIENT: PETER OSMAN LOC: [facility] U#:[id number] AGE/SX: 55/F ROOM: RE04/28/[address]: Dr. Jaison Ramirez MD : [id number] BED: DIS: SPEC #: [id number] RECD: 04/28/19 15:08 STATUS: MELISSA REYNOLDSShirley #: [id number] RAMESH: 04/28/19 11:[address]: Jaison Ramirez DEPT: SURGICAL PATHOLOGY RECD BY: Parveen Jara ENTERED: 04/29/19 08:49 SP TYPE: Lesion OTHR DR: Dr. 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 Negative for malignancy. Special stain for fungi is negative for organisms; matched control is appropriate. [place]:[email or web address] 04/30/19 MICROSCOPIC DESCRIPTION Slides are reviewed. GROSS DESCRIPTION Received is one container labeled with the patient's name and not further designated. The specimen consists of a piece of bush-pink mucosal tissue measuring 0.5 x 0.2 x 0.2 cm. The specimen is inked and submitted entirely in one cassette. / [place]:gennaro 04/29/19 TC:5 CPT: 36211, [id number]
== END ==
LOC: LABSPEC 15:14
PROVIDERS: Family Provider Family Medicine; PCP Family Medicine; Referring Provider Otolaryngology; Visit Provider Otolaryngology
DX: K13.21 Leukoplakia of oral mucosa, including tongue (principal)
CPT/HCPCS: 88305; 88312

== ENCOUNTER → 2019-06-02 12:07 | Outpatient (CLI) | payer OTHER, SELFPAY ==
[2018-07-11 12:07] VITALS: BMI 30.9
--- NOTE | 2019-06-02 12:09 | BI_ITS ---
MAMMOGRAPHY - BILATERAL SCREENING REASON FOR EXAM: Female, 49 years old. Routine annual screening examination. PERTINENT HISTORY: Non-contributory. TECHNIQUE: Digital bilateral breast ping (3D mammographic acquisition) in the CC and MLO projections. 2-D mediolateral oblique (MLO) and craniocaudad (CC) views of both breasts were obtained. CAD: Full Field Digital Mammography with Computer Added Detection was performed. COMPARISON: None. Baseline examination. FINDINGS: Breast Composition: There are scattered areas of fibroglandular density. There are no dominant masses or suspicious calcifications. Small benign-appearing bilateral axillary lymph nodes. No other significant abnormalities are identified. BI/SCREEN MAMM (CAD) W/PING BILAT IMPRESSION: Negative screening mammogram. Yearly followup mammogram recommended. (A) ASSESSMENT CATEGORY: BIRADS Category 2: Benign. A letter regarding these results will be sent to the patient by the facility within 30 days. Approximately 10% of breast cancers are not detected by mammography. A normal mammogram should not delay biopsy of a clinically suspicious abnormality. [id number] Electronically Signed: Dany Huertas, at 13:15 EST , Service support ,
== END ==
PROVIDERS: Family Provider Family Medicine; PCP Family Medicine; Referring Provider Family Medicine; Visit Provider Family Medicine
DX: Z12.31 Encounter for screening mammogram for malignant neoplasm of breast (principal)
CPT/HCPCS: 77063; 77067

== ENCOUNTER → 2021-02-09 10:56 | Outpatient (CLI) | payer OTHER, SELFPAY ==
[2018-07-11 12:07] VITALS: BMI 30.9
--- NOTE | 2021-02-09 15:32 | NEURO ---
NCS and/or EMG Patient Report Ordering Doctor: Deborah Garza DATE OF SERVICE: 02/09/21 Veronica presents for electrodiagnostic testing of the left upper limb. She reports numbness pain and tingling in the left arm. Electrodiagnostic findings: Left median motor nerve demonstrates normal distal latency, amplitude and conduction velocity. Normal left ulnar motor response, including conduction across the elbow. Normal left median and ulnar F-wave. There is a mildly prolonged left median sensory latency at the wrist. On needle EMG, all muscles tested in the left upper limb, as well as the left cervical paraspinals, showed no evidence of denervation with normal motor unit action potentials Electrodiagnostic impression: This is an abnormal study in the left upper limb 1. Electrodiagnostic findingsDemonstrate left-sided median mononeuropathy. This is consistent with a mild left carpal tunnel syndrome
--- NOTE | 2021-02-09 15:34 | NEURO_ITS ---
NCS and/or EMG Patient Report Ordering Doctor: Jacquelyn Stewart DATE OF SERVICE: 02/09/21 Latanya presents for electrodiagnostic testing of the lower limbs. She reports burning and hypersensitivity in both feet Electrodiagnostic findings: Peroneal motor nerve demonstrates normal distal latency, amplitude and conduction velocity bilaterally. Tibial motor response within normal limits. Prolonged sural latency is noted bilaterally. Normal superficial peroneal and medial plantar responses prolonged H reflex bilater ally. Prolonged peroneal F wave bilaterally. On needle EMG, all muscles tested in the lower limbs showed no evidence of denervation with normal motor unit action potentials. Electrodiagnostic impression: This is an abnormal study in the lower limbs. 1. 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
== END ==
LOC: PSN 10:57
PROVIDERS: PCP Family Medicine; Referring Provider Family Medicine; Visit Provider Family Medicine
DX: G56.02 Carpal tunnel syndrome, left upper limb (principal)
CPT/HCPCS: 95886; 95910

== ENCOUNTER → 2022-09-15 | Outpatient (CLI) | payer OTHER, SELFPAY ==
[2022-09-15 15:53] LABS: Absolute Neutrophil Count 3.5 X10^3/uL (2.0-7.7); Basophil# 0.06 X10^3/uL; Basophil% 0.8 % (0-1); Eosinophils% 2.8 % (0-5); Hematocrit 43.1 % (37-47); Lymphocyte % 39.1 % (19-41); Mean Corp Hgb Conc 32.5 g/dL (32-36); Mean Corpuscular Hgb 30.9 pg (27.0-32.0); Mean Corpuscular Volume 95.1 fL (81-99); Mean Platelet Vol. 10.9 fl (6.2-12.0); Monocyte# 0.58 X10^3/uL; Monocyte% 8.1 % (0-10); NRBC Flagged by Analyzer 0 % (0-5); Neutrophil # 3.51 X10^3/uL (2.7-7.7); Neutrophil % 48.9 % (47-70); Platelet Count 293 K/mm3 (150-450); RBC Distribution Width CV 12.8 % (11.6-14.6); RBC Distribution Width SD 44.9 fl (35.1-43.9); Red Blood Count 4.53 M/mm3 (4.2-5.4); White Blood Count 7.2 K/mm3 (4.4-11.0)
[2022-09-15 16:11] LABS: D-Dimer Quantitative (DVT/PE) < 0.27 FEU/ug/m (0.27-0.49)
== END | disposition home or self-care (01) ==
LOC: BFHLAB 13:39
PROVIDERS: PCP Family Medicine; Visit Provider Family Medicine
DX: R06.00 Dyspnea, unspecified (principal)
CPT/HCPCS: 36415; 85025; 85379

== ENCOUNTER → 2022-09-15 | Outpatient (CLI) | payer OTHER, SELFPAY ==
--- NOTE | 2022-09-15 15:05 | CT_ITS ---
STUDY: CT CHEST WITH CONTRAST REASON FOR EXAM: Female, 52 years old. COVID/POSSIBLE PE RADIATION DOSAGE (If Supplied By Facility): CTDIvol = ( 9.77 ) mGy, DLP = ( 463.96 ) mGycm TECHNIQUE: Transaxial imaging was performed following intravenous administration of IV 100mL Isovue-370. Multiplanar coronal and sagittal images were reformatted. Individualized dose optimization techniques were used for this CT. COMPARISON: No relevant priors. FINDINGS: CHEST Mild degree of emphysematous changes in the lung apices. There is no demonstrated pleural abnormality. Normal heart and pericardium. Normal mediastinum. Normal hilar regions. Normal unenhanced pulmonary arteries. Normal aorta arch and descending thoracic aorta. Normal osseous structures. Diffuse fatty infiltration of the liver. The patient is status post cholecystectomy. CT/Chest WITH Contrast IMPRESSION: Mild degree of emphysematous changes in the lung apices. No evidence of pulmonary embolism. Electronically Signed: Dany Huertas MD at 15:48 EST ,
== END | disposition home or self-care (01) ==
LOC: CT 15:04
PROVIDERS: PCP Family Medicine; Referring Provider Family Medicine; Visit Provider Family Medicine
DX: U07.1 COVID-19 (principal); R06.00 Dyspnea, unspecified
CPT/HCPCS: 71260; Q9967

== ENCOUNTER → 2023-03-06 | Outpatient (CLI) | payer OTHER, SELFPAY ==
[2023-03-06 15:26] LABS: Absolute Lymphocyte Count 2.72 X10^3/uL (0.83-4.51); Absolute Neutrophil Count 3.4 X10^3/uL (2.0-7.7); Basophil# 0.07 X10^3/uL; Eosinophil# 0.27 X10^3/uL; Eosinophils% 3.8 % (0-5); Hematocrit 41.5 % (37-47); Hemoglobin 13.6 g/dL (12.0-15.0); Lymphocyte # 2.72 X10^3/ul (0.83-4.51); Lymphocyte % 38.4 % (19-41); Mean Corp Hgb Conc 32.8 g/dL (32-36); Mean Corpuscular Hgb 31.5 pg (27.0-32.0); Mean Corpuscular Volume 96.1 fL (81-99); Mean Platelet Vol. 10.5 fl (6.2-12.0); Monocyte# 0.57 X10^3/uL; NRBC Flagged by Analyzer 0 % (0-5); Neutrophil # 3.44 X10^3/uL (2.7-7.7); Neutrophil % 48.5 % (47-70); Platelet Count 325 K/mm3 (150-450); RBC Distribution Width SD 46.4 fl (35.1-43.9); Red Blood Count 4.32 M/mm3 (4.2-5.4); White Blood Count 7.1 K/mm3 (4.4-11.0)
[2023-03-06 16:06] LABS: AST(SGOT) 16 U/L (15-37); Alanine Aminotransfer ALT/SGPT 24 U/L (13-56); Albumin, Serum 3.8 g/dL (3.2-5.0); Alkaline Phosphatase 116 U/L (45-117); Anion Gap 5 (5-15); BUN 12 mg/dL (7-18); BUN/Creat Ratio 15.8 RATIO (10-20); Chloride 104 mmol/L (98-107); Cholesterol 204 mg/dL (200); Creatinine, Serum 0.76 mg/dL (0.55-1.02); EST Glomerular Filtration Rate 85 mL/min (>60); Est Glom Filt Rate - Afr Amer 102 mL/min (>60); Glucose 105 mg/dL (74-106); High Density Lipoprotein 75 mg/dL; Potassium 4.7 mmol/L (3.5-5.1); Protein, Total 7.8 g/dL (6.4-8.2); Sodium Level 137 mmol/L (136-145); Triglycerides 140 mg/dL; Very Low Density Lipoprotein 28 mg/dL (5-40)
== END | disposition home or self-care (01) ==
LOC: BFHLAB 13:24
PROVIDERS: PCP Nurse Practitioner Family; Referring Provider Nurse Practitioner Family; Visit Provider Nurse Practitioner Family
DX: Z00.01 Encounter for general adult medical examination with abnormal findings (principal); I10 Essential (primary) hypertension
CPT/HCPCS: 36415; 80053; 80061; 85025

== ENCOUNTER → 2023-11-13 | Outpatient (CLI) | payer OTHER, SELFPAY ==
--- NOTE | 2023-11-13 14:12 | BI_ITS ---
MAMMOGRAPHY - BILATERAL SCREENING REASON FOR EXAM: Female, 53 years old. Routine annual screening examination. PERTINENT HISTORY: Non-contributory. TECHNIQUE: Digital bilateral breast ping (3D mammographic acquisition) in the CC and MLO projections. 2-D mediolateral oblique (MLO) and craniocaudad (CC) views of both breasts were obtained. CAD: Full Field Digital Mammography with Computer Added Detection was performed. COMPARISON: Comparison is made with prior study June 02, 2019. FINDINGS: Breast Composition: There are scattered areas of fibroglandular density. There are no dominant masses or suspicious calcifications. Stable small benign-appearing bilateral axillary lymph nodes. No other significant abnormalities are identified. There has been no significant change since the prior study. BI/SCRN MAMM (CAD)W/PING BILAT IMPRESSION: Stable bilateral screening mammogram. Yearly follow-up mammogram recommended. (A) ASSESSMENT CATEGORY: BIRADS Category 2: Benign. A letter regarding these results will be sent to the patient by the facility within 30 days. Approximately 10% of breast cancers are not detected by mammography. A normal mammogram should not delay biopsy of a clinically suspicious abnormality. [id number] Electronically Signed: Dany Huertas MD at 8:43 EDT ,
== END | disposition home or self-care (01) ==
LOC: OPBI 14:10
PROVIDERS: PCP Family Medicine; Referring Provider Family Medicine; Visit Provider Family Medicine
DX: Z12.31 Encounter for screening mammogram for malignant neoplasm of breast (principal)
CPT/HCPCS: 77063; 77067

== ENCOUNTER → 2024-10-07 | Outpatient (CLI) | payer OTHER, SELFPAY ==
[2024-10-07 16:03] LABS: Absolute Lymphocyte Count 2.96 X10^3/uL (0.83-4.51); Absolute Neutrophil Count 5.1 X10^3/uL (2.0-7.7); Basophil# 0.06 X10^3/uL; Basophil% 0.7 % (0-1); Eosinophil# 0.31 X10^3/uL; Eosinophils% 3.4 % (0-5); Hematocrit 41.7 % (37-47); Hemoglobin 14.3 g/dL (12.0-15.0); Lymphocyte # 2.96 X10^3/ul (0.83-4.51); Lymphocyte % 32.3 % (19-41); Mean Corp Hgb Conc 34.3 g/dL (32-36); Mean Corpuscular Hgb 31.8 pg (27.0-32.0); Mean Corpuscular Volume 92.9 fL (81-99); Monocyte# 0.67 X10^3/uL; Monocyte% 7.3 % (0-10); NRBC Flagged by Analyzer 0 % (0-5); Neutrophil # 5.14 X10^3/uL (2.7-7.7); Neutrophil % 56.1 % (47-70); Platelet Count 272 K/mm3 (150-450); RBC Distribution Width CV 12.9 % (11.6-14.6); RBC Distribution Width SD 43.9 fl (35.1-43.9); Red Blood Count 4.49 M/mm3 (4.2-5.4); White Blood Count 9.2 K/mm3 (4.4-11.0)
[2024-10-07 19:05] LABS: ALB/GLOB Ratio 1.4 RATIO (0.9-2.4); AST(SGOT) 19 U/L (<=31); Alanine Aminotransfer ALT/SGPT 16 U/L (<=34); Albumin, Serum 4.6 g/dL (3.5-5.0); Alkaline Phosphatase 104 U/L (35-104); Anion Gap 15 (5-15); BUN 18 mg/dL (4-19); BUN/Creat Ratio 23.2 RATIO (10-20); Calcium,Total 10.1 mg/dL (7.6-11.0); Carbon Dioxide 21.8 mmol/L (21.0-32.0); Chloride 99 mmol/L (98-108); Creatinine, Serum 0.76 mg/dL (0.70-1.20); EST Glomerular Filtration Rate 94 (>60); Globulin 3.3 g/dL (2.2-4.2); Glucose 96 mg/dL (70-99); Potassium 3.8 mmol/L (3.3-5.1); Protein, Total 7.8 g/dL (5.9-8.4); Sodium Level 136 mmol/L (133-145); Total Bilirubin 0.48 mg/dL (0.00-1.30)
== END | disposition home or self-care (01) ==
LOC: MTLAB 12:37
PROVIDERS: PCP Family Medicine; Referring Provider Family Medicine; Visit Provider Family Medicine
DX: I10 Essential (primary) hypertension (principal)
CPT/HCPCS: 36415; 80053; 84443; 85025